=== PATIENT | male | born 1965 | race Caucasian/White ===

== ENCOUNTER 2018-05-06 13:56 | Observation (INO) ==
[2018-05-06 14:31] LABS: Basophils % 0.3 % (0.1-2.0); Eosinophils # 0.2 K/mm3 (0.0-0.4); Eosinophils % 4.4 % (0.1-12.0); Hemoglobin 9.9 g/dL (14.1-18.0); Lymphocytes # 1.1 K/mm3 (0.7-4.5); Lymphocytes % 23.6 K/mm3 (10-50); Mean Corpuscular HGB Conc 30.9 g/dL (31.8-35.4); Mean Corpuscular Hemoglobin 23.3 pg (27.0-31.2); Mean Corpuscular Volume 75.5 fl (80-94); Mean Platelet Volume 6.7 fl (7.4-10.4); Monocytes # 0.4 K/mm3 (0.1-1.0); Monocytes % 7.9 % (1.7-9.3); Neutrophils % 63.7 % (37.0-80.0); Platelet Count 384 K/mm3 (142-424); Red Blood Count 4.24 M/mm3 (4.60-6.20); Red Cell Distribution Width 17.1 % (11.5-17.5); White Blood Count 4.7 K/mm3 (4.8-10.8)
[2018-05-06 14:40] LABS: Anion Gap 9.9 mEq/L (5-15); Blood Urea Nitrogen 10 mg/dL (7-18); Calcium 8.5 mg/dL (8.5-10.1); Carbon Dioxide 27 mmol/L (21.0-32.0); Chloride 103 mmol/L (98-107); Glucose 76 mg/dL (74-106); Potassium 3.9 mmoL/L (3.5-5.1); Sodium 136 mmol/L (136-145)
--- NOTE | 2018-05-06 15:05 | Emergency Department Note ---
ED Disposition Clinical Impression: Chest pain, CAD (coronary artery disease), Microcytic anemia Disposition: Still a Patient Condition on Discharge: Fair Referrals: Provider,Referral, [Primary Care Provider] - - Critical Care Critical Care Time: No Attestation: On 05/06/18, the high probability of a clinically significant, sudden or life threatening deterioration of the following system(s) required my full and direct attention, intervention and personal management. The time I documented below is in addition to time spent performing reported procedures but includes the following listed in this critical care notation. Medical Decision Making - [place] Inquiry Pt receiving controlled substance: No [place] was queried for this patient: No Vital Signs: 05/06/18 13:59 05/06/18 14:29 05/06/18 14:30 Temperature 98.6 F Temperature Source Oral Pulse Rate [Right Brachial] 78 87 72 Respiratory Rate 20 Blood Pressure [Right Arm] 112/77 112/62 104/69 L Blood Pressure Mean [Right Arm] 88 78 80 Blood Pressure Source [Right Arm] Automatic Cuff Automatic Cuff Automatic Cuff Blood Pressure Position [Right Arm] Sitting Sitting Sitting 02 Sat by Pulse Oximetry 98 98 99 Oxygen Delivery Method Room Air - Lab Data Lab Results 05/06/18 14:15: WBC 4.7 L, RBC 4.24 L, Hgb 9.9 L, Hct 32.0 L, MCV 75.5 L, MCH 23.3 L, MCHC 30.9 L, RDW 17.1, Plt Count 384, MPV 6.7 L, Neut % (Auto) 63.7, Lymph % (Auto) 23.6, [place] % (Auto) 7.9, Eos % (Auto) 4.4, Baso % (Auto) 0.3, Neut # (Auto) 3.0, Lymph # (Auto) 1.1, [place] # (Auto) 0.4, Eos # (Auto) 0.2, Baso # (Auto) 0.0 05/06/18 14:15: Sodium 136, Potassium 3.9, Chloride 103, Carbon Dioxide 27, Anion Gap 9.9, BUN 10, Creatinine 0.85, Estimated Creat Clear 87, Estimated GFR 95, Est GFR ( Amer) 115, Glucose 76, Calcium 8.5, Troponin I < 0.02 Result diagrams: 05/06/18 14:15 05/06/18 14:15 Orders (Tests/Meds): ED MEDICATIONS Generic Name Dose Route Start Last Admin Trade Name Freq PRN Reason Stop Dose Admin Nitroglycerin 0.4 mg 05/06/18 14:28 05/06/18 14:29 Nitrostat 0.4mg Sl Tablet SL 06/05/18 14:27 1 tab [id number] PRN Administration Chest Pain Discontinued Medications Generic Name Dose Route Start Last Admin Trade Name Freq PRN Reason Stop Dose Admin Aspirin 324 mg 05/06/18 14:06 05/06/18 14:08 Aspirin 81mg Chewable Tablet PO 05/06/18 14:07 324 mg ONCE ONE Administration ORDERS Category Date Time Status Chest XR 2 view (NOT portable) [XR chest 2V] Stat Exams 05/06/18 14:06 Taken BNP [B-Type Natriuretic Peptide] Stat Lab 05/06/18 14:58 Ordered D-Dimer Stat Lab 05/06/18 14:58 Ordered 12-lead EKG Request [ECG Request by /Nse] Stat Y 05/06/18 14:05 Ordered - Radiology Data #1 Image(s): Chest Image Reviewed: Yes I discussed the image results w/the radiologist Preliminary Findings: Normal/NAD - ECG Data Tracing #1 Normal sinus rhythm 91/min no acute finding. ECG initial impression date: 05/06/18 ECG initial impression time: 14:00 Medical Decision Narrative: I discussed with Dr. Reddy who agreed to see the patient on inpatient consultation. Called Dr. Jaramillo who was education nurse for unassigned to admit the patient. Chest Pain HPI - General Chief Complaint: Chest Pain Stated Complaint: CHEST PAIN Time Seen by Provider: 05/06/18 14:00 Mode of Arrival: Family Vehicle Limitations: No Limitations Description of Symptoms (Recalled from ER Triage Doc. 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 PS 7/10. HX CARDIAC STENTS X 2. - History of Present Illness HPI narrative: 52 years old white male with a history of coronary artery disease status post stent 2 years ago currently on no aspirin and Plavix. Today at 12 while resting he developed retrosternal chest pain 8/10 associated with shortness of breath and palpitations. Presented to the ED he was given nitroglycerin with decrease of the chest pain 2/10. He was taken to the x-ray department when he felt dizzy and passed out was brought back to the ED he was given IV fluids with normotensive blood pressure. Patient's initial EKG was normal sinus with no acute findings his first set of troponin is negative. MD complaint: chest pain indicative of cardiac Onset (ago): hour(s) (3 hours ago.) Duration: constant Activity at onset: during rest Pain location: substernal Severity: moderate Severity scale (1-10): 4 Pain radiation: none Relieving factors: nitroglycerin Exacerbating factors: nothing Associated symptoms: syncope Risk Factors for CAD: Smoking Treatments prior to or on arrival for Cardiac Chest Pain: none - Related Data Home Medications Medication Instructions Recorded Confirmed isosorbide mononitrate ER 30 mg 30 mg PO QAM 08/01/17 tablet,extended release 24 hr Previous Rx's Medication Instructions Recorded Omeprazole [Omeprazole 20mg 20 mg PO DAILY #30 cap 05/05/18 Capsule] Allergies Allergy/AdvReac Type Severity Reaction Status Date / Time Penicillins Allergy Unknown Verified 02/24/18 12:53 [facility] History I have reviewed the patient's past medical history: Yes Medical History: Reports:: Chronic Obstructive Pulmonary Disease (COPD), Coronary Artery Disease, Hyperlipidemia, Hypertension Denies:: Cancer, Diabetes Mellitus Type 1, Diabetes Mellitus Type 2, Gastroesophageal Reflux Disease(GERD), Gastrointestinal Bleed, MRSA, Renal Disease, Ulcer Other Surgeries: Yes: Coronary Stent, Other (cardiac cathx2) Amputation: No - Social History Smoking Status: Current every day smoker Tobacco Type: cigarettes Alcohol Intake: never - Psychiatric History Expresses thoughts of harming self/others: None Suicide Plan Description: No Plan ROS Obtained: Yes All systems reviewed & no additional complaints Physical Exam - General General appearance: alert, in no apparent distress - Head Head exam: atraumatic, normocephalic, normal inspection - Eye Eye exam: Present: normal appearance, PERRL, EOMI - ENT ENT exam: Present: normal exam, normal oropharynx, mucous membranes moist, TM's normal bilaterally, normal external ear exam - Neck Neck exam: Present: normal inspection, full ROM, trachea midline. Absent: meningismus, lymphadenopathy - Chest Chest inspection: Present: normal inspection, symmetric chest wall rise. Absent: tenderness - Respiratory Respiratory exam: Present: normal lung sounds bilaterally. Absent: respiratory distress - Cardiovascular Cardiovascular exam: Present: regular rate, normal rhythm. Absent: JVD - Abdominal Exam Abdominal exam: Present: soft, normal bowel sounds. Absent: distention, t enderness, guarding, rebound, rigidity - Extremities Exam Extremities exam: Present: normal inspection, full ROM, normal capillary refill. Absent: calf tenderness - Back Exam Back exam: Present: normal inspection. Absent: tenderness, CVA tenderness (R), CVA tenderness (L), vertebral tenderness - Neurological Exam Neurological exam: Present: alert, oriented X3, CN II-XII intact, motor sensory deficit, reflexes normal - Psychiatric Psychiatric exam: Present: normal affect, normal mood - Skin Skin exam: Present: warm, dry, intact, normal color - Lymphatic Lymphatic Findings: no adenopathy
[2018-05-07 06:25] LABS: Basophils % 0.5 % (0.1-2.0); Eosinophils # 0.2 K/mm3 (0.0-0.4); Eosinophils % 4.1 % (0.1-12.0); Hematocrit 28.2 % (42.0-52.0); Lymphocytes % 27.6 K/mm3 (10-50); Mean Corpuscular HGB Conc 30.8 g/dL (31.8-35.4); Mean Corpuscular Hemoglobin 23.5 pg (27.0-31.2); Mean Corpuscular Volume 76.4 fl (80-94); Mean Platelet Volume 6.9 fl (7.4-10.4); Monocytes # 0.3 K/mm3 (0.1-1.0); Monocytes % 8.3 % (1.7-9.3); Neutrophils # 2.2 K/mm3 (1.8-7.8); Neutrophils % 59.5 % (37.0-80.0); Platelet Count 304 K/mm3 (142-424); Red Blood Count 3.69 M/mm3 (4.60-6.20); Red Cell Distribution Width 17.2 % (11.5-17.5); White Blood Count 3.7 K/mm3 (4.8-10.8)
[2018-05-07 06:30] LABS: Anion Gap 7.8 mEq/L (5-15); Calcium 8.1 mg/dL (8.5-10.1); Chol/HDL Ratio 3.1 (1-3.5); Potassium 3.8 mmoL/L (3.5-5.1)
[2018-05-07 06:45] LABS: Hemoglobin 8.7 g/dL (14.1-18.0)
--- NOTE | 2018-05-07 06:56 | History & Physical Report ---
*Admission Date: 05/06/18 *Chief complaint: Chest pain *History of present illness: 52-year-old male presented to the emergency department yesterday with retrosternal chest pain that was nonradiating and described as sharp and stabbing. This pain was reminiscent to him of the previous chest pain he had where he was discovered to have coronary artery disease and had [address] Reddy. This was in 2014. Patient had associated diaphoresis. He denies shortness of breath. During his workup in the emergency department when he was taken for chest x-ray he had a syncopal event. ER physician spoke with Dr. Reddy who agreed to see the patient in consultation. Patient was admitted for rule out of [place]. He has continued to have mild episodes of chest pain overnight Patient tells me during interview today that he has been off all of his medications for several months as he has been noncompliant with follow-up with Dr. Reddy. He was admitted to this hospital in June 2017 with an episode of chest pain and repeat catheterization at that time showed [id number] disease. Patient was also found to be anemic in the emergency department [place] History I have reviewed the patient's past medical history: Yes Medical History: Reports:: Chronic Obstructive Pulmonary Disease (COPD), Coronary Artery Disease, Hyperlipidemia, Hypertension Denies:: Cancer, Diabetes Mellitus Type 1, Diabetes Mellitus Type 2, Gastroe sophageal Reflux Disease(GERD), Gastrointestinal Bleed, MRSA, Renal Disease, Ulcer Other Medical History: Reports: Anemia Other Surgeries: Yes: Coronary Stent, Other (cardiac cathx2) Amputation: No - *Social History Educational Level: Attended High School Smoking Status: Current every day smoker Tobacco Type: cigarettes # Packs/Day (cigarettes): 1 #Yrs smoked (if former smoker): 34 Alcohol Intake: former Alcohol Intake Frequency:: other Occupational Status: employed Housing: apartment - Psychiatric History Expresses thoughts of harming self/others: None Suicide Plan Description: No Plan Review of Systems - Review of Systems Review of systems:: pertinent systems reviewed and negative unless documented below - Constitutional Denies anorexia, Denies body ache(s), Denies chills - *Cardiovascular Reports chest pain, Reports chest pain at rest, Reports excessive sweating, Denies chest pain with activity, Denies irregular heart rhythm Meds Home Medications Medication Instructions Recorded Confirmed Type isosorbide mononitrate ER 30 mg 30 mg PO QAM 08/01/17 History tablet,extended release 24 hr Allergies Allergy/AdvReac Type Severity Reaction Status Date / Time Penicillins Allergy Unknown Verified 02/24/18 12:53 Exam Vital signs and Labs for Last 24 Hours: Temp Pulse Resp BP Pulse Ox 98.4 F 65 14 102/61 L 97 05/07/18 04:00 05/07/18 04:00 05/07/18 04:00 05/07/18 04:00 05/07/18 04:00 Laboratory Results - last 24 hr 05/06/18 14:15: WBC 4.7 L, RBC 4.24 L, Hgb 9.9 L, Hct 32.0 L, MCV 75.5 L, MCH 23.3 L, MCHC 30.9 L, RDW 17.1, Plt Count 384, MPV 6.7 L, Neut % (Auto) 63.7, Lymph % (Auto) 23.6, [place] % (Auto) 7.9, Eos % (Auto) 4.4, Baso % (Auto) 0.3, Neut # (Auto) 3.0, Lymph # (Auto) 1.1, [place] # (Auto) 0.4, Eos # (Auto) 0.2, Baso # (Auto) 0.0 05/06/18 14:15: Sodium 136, Potassium 3.9, Chloride 103, Carbon Dioxide 27, Anion Gap 9.9, BUN 10, Creatinine 0.85, Estimated Creat Clear 87, Estimated GFR 95, Est GFR ( Amer) 115, Glucose 76, Calcium 8.5, Troponin I < 0.02 05/06/18 14:15: D-Dimer < 100 05/06/18 14:15: B-Natriuretic Peptide 23 05/06/18 14:15: Retic Count (auto) 1.1 05/06/18 18:12: Troponin I < 0.02 05/07/18 00:20: Troponin I < 0.02 05/07/18 05:55: WBC 3.7 L, RBC 3.69 L, Hgb 8.7 L D, Hct 28.2 L, MCV 76.4 L, MCH 23.5 L, MCHC 30.8 L, RDW 17.2, Plt Count 304, MPV 6.9 L, Neut % (Auto) 59.5, Lymph % (Auto) 27.6, [place] % (Auto) 8.3, Eos % (Auto) 4.1, Baso % (Auto) 0.5, Neut # (Auto) 2.2, Lymph # (Auto) 1.0, [place] # (Auto) 0.3, Eos # (Auto) 0.2, Baso # (Auto) 0.0 05/07/18 05:55: Sodium 139, Potassium 3.8, Chloride 108 H, Carbon Dioxide 27, Anion Gap 7.8, BUN 7 D, Creatinine 0.85, Estimated Creat Clear 87, Estimated GFR 95, Est GFR ( Amer) 115, Glucose 89, Calcium 8.1 L, Magnesium 1.9, Triglycerides 51, Cholesterol 89 L, LDL Cholesterol 50, VLDL Cholesterol 10, HDL Cholesterol 29, Cholesterol/HDL Ratio 3.1 I & O for Last 24 hours: Intake & Output 05/04/18 05/05/18 05/06/18 05/07/18 11:59 11:59 11:59 11:59 Intake Total 810 / 810 Balance 810 / 810 Weight 130 lb 8 oz Narrative: Patient is sitting comfortably in bed in no distress. He is a thin, white male. ENT exam is grossly normal. Neck is without carotid bruits or thyromegaly. Lungs are clear to auscultation. Heart has a regular rate and rhythm. Abdomen is soft nontender nondistended. Extremities have full range of motion and are without edema. Assessment and Plan (1) Cigarette smoker Current visit: Yes Status: Acute Category: Medical Code(s): F17.210 - Nicotine dependence, cigarettes, uncomplicated (2) CAD (coronary artery disease) Current visit: Yes Status: Acute Category: Medical Code(s): I25.10 - Atherosclerotic heart disease of [place] coronary artery without angina pectoris (3) Chest pain Current visit: Yes Status: Acute Category: Medical Code(s): R07.9 - Chest pain, unspecified (4) Microcytic anemia Current visit: Yes Status: Acute Category: Medical Code(s): D50.9 - Iron deficiency anemia, unspecified (5) Severe chronic obstructive pulmonary disease Current visit: No Status: Acute Category: Medical Code(s): J44.9 - Chronic obstructive pulmonary disease, unspecified (6) Stented coronary artery Current visit: No Status: Acute Category: Surgical Code(s): Z95.5 - Presence of coronary angioplasty implant and graft - Assessment and plan all Dx Assessment and Plan for all problems:: 1. Cardiology consultation today. I did discuss with the patient the need to take the medications that he is prescribed. 2. We discussed his microcytic anemia and his need for a primary care provider so that he can get a referral for colonoscopy. His current insurance, at the [facility], as accepted by only one primary care physician locally and he is aware of that
--- NOTE | 2018-05-07 08:03 | Consult Report ---
History of Present Illness Consult date: 05/07/18 Requesting physician: Rubens Jaramillo Consult reason: chest pain Chief complaint: chest pain Additional Medical History:: 1. CAD A. ANISH to RCA and left anterior descending, 01/2015. B. Cardiac cath, 06/2017, ANGIOGRAPHIC RESULTS: 1. The left main artery long and normal 2. The left anterior descending artery is proximally normal with mild luminal irregularities in the mid LAD and very large bifurcating first diagonal artery which is equal in size to the LAD itself 3. The circumflex artery is nondominant and normal 4. The right coronary artery is a dominant vessel and has mild mid vessel luminal irregularities. Distally in the large posterior descending artery there are stents in the mid segment which are widely patent. One area has a 50-60% concentric in-stent restenotic area at a 2 mm area 5. The GUNN ventriculogram reveals 65% 6. The left ventricular end-diastolic pressure 15 mmHg IMPRESSION: 1. Mild nonflow limiting coronary disease in the LAD and very large first diagonal artery 2. Patent stents with a focal moderate in-stent restenotic lesion within the posterior descending artery which is nonflow limiting 3. Normal ejection fraction 4. Normal to mildly elevated LVEDP PLAN: 1. Medical management 2. Risk factor modification 3. Avoidance of tobacco products 4. LDL less than 55 5. Maximize antianginal's 2. COPD A. Tobacco use, continued 3. HTN 4. Hyperlipidemia 6. Non-compliance 7. GERD, 04/2018 History of present illness: 52-year-old male presented to the emergency department yesterday with re trosternal chest pain that was nonradiating and described as sharp and stabbing. This pain was reminiscent to him of the previous chest pain he had where he was discovered to have coronary artery disease and had [address] Reddy. This was in 2014. Patient had associated diaphoresis. He denies shortness of breath. During his workup in the emergency department when he was taken for chest x-ray he had a syncopal event. ER physician spoke with Dr. Reddy who agreed to see the patient in consultation. Patient was admitted for rule out of [place]. He has continued to have mild episodes of chest pain overnight Patient tells me during interview today that he has been off all of his medications for several months as he has been noncompliant with follow-up with Dr. Reddy. He was admitted to this hospital in June 2017 with an episode of chest pain and repeat catheterization at that time showed [id number] disease. Patient was also found to be anemic in the emergency department The above per Dr. Jaramillo Pt was recently started on omeprazole (first dose yesterday) for reflux with improvement in symptoms of upper abdominal and sternum discomfort. Troponins have returned normal after hours of chest pain. EKG is sinus with no evidence of ST segment elevation or ischemia. Pt has been non-compliant with even ASA on a regular basis. [facility] History Medical History: Reports:: Chronic Obstructive Pulmonary Disease (COPD), Coronary Artery Disease, Hyperlipidemia, Hypertension Denies:: Cancer, Diabetes Mellitus Type 1, Diabetes Mellitus Type 2, Gastroesophageal Reflux Disease(GERD), Gastrointestinal Bleed, MRSA, Renal Disease, Ulcer Other Medical History: Reports: Anemia Other Surgeries: Yes: Coronary Stent, Other (cardiac cathx2) Amputation: No - *Social History Educational Level: Attended High School Smoking Status: Current every day smoker Tobacco Type: cigarettes # Packs/Day (cigarettes): 1 #Yrs smoked (if former smoker): 34 Alcohol Intake: former Alcohol Intake Frequency:: other Occupational Status: employed Housing: apartment - Psychiatric History Expresses thoughts of harming self/others: None Suicide Plan Description: No Plan Meds Home Medications Medication Instructions Recorded Confirmed Type isosorbide mononitrate ER 30 mg 30 mg PO QAM 08/01/17 History tablet,extended release 24 hr Allergies Allergy/AdvReac Type Severity Reaction Status Date / Time Penicillins Allergy Unknown Verified 02/24/18 12:53 Review of Systems - *Cardiovascular Reports chest pain, Denies shortness of breath, Denies shortness of breath with activity - *Respiratory Denies shortness of breath with activity - *Gastrointestinal Reports abdominal pain, Denies incontinent of stools, Denies bright, red blood in stools - *Genitourinary Denies blood in urine - *Musculoskeletal Denies back pain Exam Vital signs and Labs for Last 24 Hours: Temp Pulse Resp BP Pulse Ox 98.7 F 64 18 119/67 98 05/07/18 07:44 05/07/18 07:44 05/07/18 07:44 05/07/18 07:44 05/07/18 07:44 Laboratory Results - last 24 hr 05/06/18 14:15: WBC 4.7 L, RBC 4.24 L, Hgb 9.9 L, Hct 32.0 L, MCV 75.5 L, MCH 23.3 L, MCHC 30.9 L, RDW 17.1, Plt Count 384, MPV 6.7 L, Neut % (Auto) 63.7, Lymph % (Auto) 23.6, [place] % (Auto) 7.9, Eos % (Auto) 4.4, Baso % (Auto) 0.3, Neut # (Auto) 3.0, Lymph # (Auto) 1.1, [place] # (Auto) 0.4, Eos # (Auto) 0.2, Baso # (Auto) 0.0 05/06/18 14:15: Sodium 136, Potassium 3.9, Chloride 103, Carbon Dioxide 27, Ani on Gap 9.9, BUN 10, Creatinine 0.85, Estimated Creat Clear 87, Estimated GFR 95, Est GFR ( Amer) 115, Glucose 76, Calcium 8.5, Troponin I < 0.02 05/06/18 14:15: D-Dimer < 100 05/06/18 14:15: B-Natriuretic Peptide 23 05/06/18 14:15: Retic Count (auto) 1.1 05/06/18 18:12: Troponin I < 0.02 05/07/18 00:20: Troponin I < 0.02 05/07/18 05:55: WBC 3.7 L, RBC 3.69 L, Hgb 8.7 L D, Hct 28.2 L, MCV 76.4 L, MCH 23.5 L, MCHC 30.8 L, RDW 17.2, Plt Count 304, MPV 6.9 L, Neut % (Auto) 59.5, Lymph % (Auto) 27.6, [place] % (Auto) 8.3, Eos % (Auto) 4.1, Baso % (Auto) 0.5, Neut # (Auto) 2.2, Lymph # (Auto) 1.0, [place] # (Auto) 0.3, Eos # (Auto) 0.2, Baso # (Auto) 0.0 05/07/18 05:55: Sodium 139, Potassium 3.8, Chloride 108 H, Carbon Dioxide 27, Anion Gap 7.8, BUN 7 D, Creatinine 0.85, Estimated Creat Clear 87, Estimated GFR 95, Est GFR ( Amer) 115, Glucose 89, Calcium 8.1 L, Magnesium 1.9, Triglycerides 51, Cholesterol 89 L, LDL Cholesterol 50, VLDL Cholesterol 10, HDL Cholesterol 29, Cholesterol/HDL Ratio 3.1 I & O for Last 24 hours: Intake & Output 05/04/18 05/05/18 05/06/18 05/07/18 11:59 11:59 11:59 11:59 Intake Total 810 / 810 Balance 810 / 810 Weight 130 lb 8 oz - *Routine Neck Exam Present: supple. Absent: JVD, carotid bruit - *Routine Respiratory Exam Present: CTA bilaterally, diminished air movement. Absent: accessory muscle use, rales, rhonchi, wheezes - *Routine Cardiovascular Exam Present: RRR. Absent: murmur, gallop, rubs - *Routine Abdominal Exam Present: soft. Absent: tenderness, distended, guarding - *Routine Extremities Exam Absent: edema, calf tenderness - *Routine Neurological Exam Present: alert, oriented X3, moving all extremities Assessment and Plan (1) Cigarette smoker Current visit: Yes Status: Acute Category: Medical Code(s): F17.210 - Nicotine dependence, cigarettes, uncomplicated (2) CAD (coronary artery disease) Current visit: Yes Status: Acute Category: Medical Code(s): I25.10 - Atherosclerotic heart disease of [place] coronary artery without angina pectoris (3) Chest pain Current visit: Yes Status: Acute Category: Medical Code(s): R07.9 - Chest pain, unspecified (4) Microcytic anemia Current visit: Yes Status: Acute Category: Medical Code(s): D50.9 - Iron deficiency anemia, unspecified (5) Severe chronic obstructive pulmonary disease Current visit: No Status: Acute Category: Medical Code(s): J44.9 - Chronic obstructive pulmonary disease, unspecified (6) Stented coronary artery Current visit: No Status: Acute Category: Surgical Code(s): Z95.5 - Presence of coronary angioplasty implant and graft - Assessment and plan all Dx Assessment and Plan for all problems:: 1. Chest pain with normal troponins and normal EKG with medication non- compliance. Cardiac cath in 06/2017 showed non-flow limiting CAD in a small diameter PDA for which medical therapy recommended. Due to patients non- compliance, will recommend restarting ASA 81 mg daily along with statin therapy (atorvastatin 40 mg daily) and imdur 30 mg daily along with PPI therapy (omeprazole as previously started). Due to low BP will hold off on beta bobby or CCB therapy at this time. 2. Follow up in our office in one week. 3. Discussed with Dr. Reddy
--- NOTE | 2018-05-07 10:22 | Discharge Summary ---
General - General Admission date:: 05/06/18 Discharge date: 05/07/18 HPI HPI: 52-year-old male presented to the emergency department yesterday with retrosternal chest pain that was nonradiating and described as sharp and stabbing. This pain was reminiscent to him of the previous chest pain he had where he was discovered to have coronary artery disease and had [address] Reddy. This was in 2014. Patient had associated diaphoresis. He denies shortness of breath. During his workup in the emergency department when he was taken for chest x-ray he had a syncopal event. ER physician spoke with Dr. Reddy who agreed to see the patient in consultation. Patient was admitted for rule out of SC. He has continued to have mild episodes of chest pain overnight Patient tells me during interview today that he has been off all of his medications for several months as he has been noncompliant with follow-up with Dr. Reddy. He was admitted to this hospital in June 2017 with an episode of chest pain and repeat catheterization at that time showed [id number] disease. Patient was also found to be anemic in the emergency department Hospital Course Hospital Course: Patient was admtted and ruled out for SC. Cardiology saw the patient and advised him to take his medication. No interventions were planned. He was discharged with one month prescription for medications. He will need to follow up with Cardiology and establish a relationship with a PCP for his anemia that will require colonoscopy. Objective Vital signs: Temp Pulse Resp BP Pulse Ox 98.7 F 64 18 119/67 98 05/07/18 07:44 05/07/18 07:44 05/07/18 07:44 05/07/18 07:44 05/07/18 07:44 Results Labs on day of discharge: Labs from last 24 hours 05/07/18 05/07/18 05/07/18 05:55 05:55 00:20 WBC 3.7 L RBC 3.69 L Hgb 8.7 L D Hct 28.2 L MCV 76.4 L MCH 23.5 L MCHC 30.8 L RDW 17.2 Plt Count 304 MPV 6.9 L Neut % (Auto) 59.5 Lymph % (Auto) 27.6 [place] % (Auto) 8.3 Eos % (Auto) 4.1 Baso % (Auto) 0.5 Neut # (Auto) 2.2 Lymph # (Auto) 1.0 [place] # (Auto) 0.3 Eos # (Auto) 0.2 Baso # (Auto) 0.0 Retic Count (auto) D-Dimer Sodium 139 Potassium 3.8 Chloride 108 H Carbon Dioxide 27 Anion Gap 7.8 BUN 7 D Creatinine 0.85 Estimated Creat Clear 87 Estimated GFR 95 Est GFR ( Amer) 115 Glucose 89 Calcium 8.1 L Magnesium 1.9 Troponin I < 0.02 B-Natriuretic Peptide Triglycerides 51 Cholesterol 89 L LDL Cholesterol 50 VLDL Cholesterol 10 HDL Cholesterol 29 Cholesterol/HDL Ratio 3.1 05/06/18 05/06/18 05/06/18 18:12 14:15 14:15 WBC RBC Hgb Hct MCV MCH MCHC RDW Plt Count MPV Neut % (Auto) Lymph % (Auto) [place] % (Auto) Eos % (Auto) Baso % (Auto) Neut # (Auto) Lymph # (Auto) [place] # (Auto) Eos # (Auto) Baso # (Auto) Retic Count (auto) 1.1 D-Dimer Sodium Potassium Chloride Carbon Dioxide Anion Gap BUN Creatinine Estimated Creat Clear Estimated GFR Est GFR ( Amer) Glucose Calcium Magnesium Troponin I < 0.02 B-Natriuretic Peptide 23 Triglycerides Cholesterol LDL Cholesterol VLDL Cholesterol HDL Cholesterol Cholesterol/HDL Ratio 05/06/18 05/06/18 05/06/18 14:15 14:15 14:15 WBC 4.7 L RBC 4.24 L Hgb 9.9 L Hct 32.0 L MCV 75.5 L MCH 23.3 L MCHC 30.9 L RDW 17.1 Plt Count 384 MPV 6.7 L Neut % (Auto) 63.7 Lymph % (Auto) 23.6 [place] % (Auto) 7.9 Eos % (Auto) 4.4 Baso % (Auto) 0.3 Neut # (Auto) 3.0 Lymph # (Auto) 1.1 [place] # (Auto) 0.4 Eos # (Auto) 0.2 Baso # (Auto) 0.0 Retic Count (auto) D-Dimer < 100 Sodium 136 Potassium 3.9 Chloride 103 Carbon Dioxide 27 Anion Gap 9.9 BUN 10 Creatinine 0.85 Estimated Creat Clear 87 Estimated GFR 95 Est GFR ( Amer) 115 Glucose 76 Calcium 8.5 Magnesium Troponin I < 0.02 B-Natriuretic Peptide Triglycerides Cholesterol LDL Cholesterol VLDL Cholesterol HDL Cholesterol Cholesterol/HDL Ratio DS: Diagnosis - Discharge Diagnosis (1) Cigarette smoker Status: Acute (2) CAD (coronary artery disease) Status: Acute (3) Chest pain Status: Acute (4) Microcytic anemia Status: Acute (5) Severe chronic obstructive pulmonary disease Status: Acute (6) Stented coronary artery Status: Acute Discharge Plan - Patient Discharge Instructions ACTIVITY: Continue current activity DIET: continue same diet Patient Instructions: DI for Chest Pain Forms: [facility] Work Release - Follow up Plan Follow up with: Jona Reddy MD [Staff Physician] - Disposition: Home, Self-Longterm Medications: Home Medications Medication Instructions Recorded Confirmed Type isosorbide mononitrate ER 30 mg 30 mg PO AMLAB 08/01/17 05/07/18 History tablet,extended release 24 hr Prescriptions/Medication Reconciliation: New RX: Aspirin [Aspirin 81mg chewable tab] 81 mg PO DAILY #30 tab.chew RX: Atorvastatin Calcium [Lipitor 40mg Tablet] 40 mg PO HS #30 tablet Continue isosorbide mononitrate ER 30 mg tablet,extended release 24 hr 30 mg PO AMLAB RX: Omeprazole [Omeprazole 20mg Capsule] 20 mg PO DAILY #30 cap
== END 2018-05-07 10:55 | disposition home or self-care (01) ==
LOC: 2ND 13:56 → ER 13:56 → 2ND 16:35
PROVIDERS: ADMIT Family Medicine; ATTEND Family Medicine

== ENCOUNTER → 2018-05-26 07:11 | Outpatient (CLI) | payer OTHER, SELFPAY ==
--- NOTE | 2018-05-26 07:13 | CA_ITS ---
PROCEDURE: 2-D M-mode and color Doppler study INDICATIONS FOR THE TEST: Chest pain + COPD+ Heart Murmur Tobacco Smoking+ Palpitations Fatigue Syncope Edema Hypertension+Diabetes Mellitus Rheumatic Fever SOB LALA Obesity Hyperlipidemia+ Family History HD Additional History CAD, OLD PA, STENTS PATIENT INFORMATION HEIGHT:68 WEIGHT:130 GENDER: Male B/P:143/91 2-D/M-MODE INTERPRETATION: 2-D MEASUREMENTS OBSERVED VALUES IN CMS Right Ventricular Dimension (RVDd) 1.9 Interventricular Septum (Thickness)(IVsd) 1.1 Left Ventricular Internal Dimensions(LVIDd) 4.6 Left Ventricular Posterior Wall (Thickness)(LVPWd) 0.9 Aortic Root 3.0 Aortic Cusp Separation 1.9 Left Atrial Dimensions (LAD) 2.3 2D 1. Left atrium is mildly enlarged, left ventricle is normal size, there is no concentric left ventricular hypertrophy, visually estimated ejection fraction approximately 40%, there is moderate hypokinesis involving the apex. 2. The right atrium and right ventricle are normal size and contractility. 3. The aortic valve is minimally thickened and fibrosed. 4. The mitral and tricuspid valvular grossly normal. 5. The pulmonic valve is poorly visualized. 6. No significant pericardial effusion noted. DOPPLER INTERROGATION: Doppler interrogation of the aortic, mitral and tricuspid valvular presence of mild mitral and tricuspid regurgitation, tricuspid regurgitation jet velocity is inadequate for calculation of the right ventricular systolic pressure, diastolic parameters are inconclusive. CONCLUSION: 1. Mildly enlarged left atrium, normal left ventricular size, visually estimated ejection fraction approximately 40%, segmental wall motion abnormality described above, diastolic parameters are inconclusive. 2. Mild mitral and tricuspid regurgitation 3. No significant pericardial effusion noted.
--- NOTE | 2018-05-26 07:13 | CI_ITS ---
Cerebrovascular Exam Indications: 780.2 Syncope and collapse. IMPRESSIONS 1. The bilateral vertebral arteries are patent with normal antegrade flow. 2. Study suggests 20-49% stenosis involving the right internal carotid artery and the left internal carotid artery, lower end of scale. Carotid duplex study. Complete study and Doppler flow study including spectral analysis, color and solorzano scale imaging. Height: Height: 172.7cm. Height: 68in. Weight: Weight: 59kg. Weight: 129.7lb. Body mass index: BMI: 19.8kg/m^2. Body surface area: BSA: 1.68m^2. Location: Vascular laboratory. Patient status: Outpatient. Tables: Arterial flow: + +--------+--------+ Location V sys V ed + +--------+--------+ Right CCA - proximal 109cm/s 36.1cm/s + +--------+--------+ Right CCA - distal 93.5cm/s 40.9cm/s + +--------+--------+ Right ECA 80cm/s -------- + +--------+--------+ Right ICA - proximal 77.1cm/s 37.8cm/s + +--------+--------+ Right ICA - mid 74.6cm/s 38.3cm/s + +--------+--------+ Right ICA - distal 81.5cm/s 38.8cm/s + +--------+--------+ Right vertebral 52.6cm/s -------- + +--------+--------+ Left CCA - proximal 103cm/s 35.8cm/s + +--------+--------+ Left CCA - distal 93.3cm/s 35.4cm/s + +--------+--------+ Left ECA 62.9cm/s -------- + +--------+--------+ Left ICA - proximal 69.9cm/s 29.9cm/s + +--------+--------+ Left ICA - mid 86.9cm/s 40.8cm/s + +--------+--------+ Left ICA - distal 80cm/s 36.8cm/s + +--------+--------+ Left vertebral 59.9cm/s -------- + +--------+--------+ Velocity ratios: + + + + + + Right, V sys Right, V ed Left, V sys Left, V ed + + + + + + Max ICA/dist CCA 0.87 0.95 0.93 1.15 + + + + + + (Report amended ) Electronically signed by: Efren Bazan [id number]
--- NOTE | 2018-05-26 07:13 | NM_ITS ---
History and Indications: Coronary artery disease, hypertension, tobacco use, chest, shortness of breath and abnormal EKG. Procedure: Patient received a 0.4 mg of intravenous Lexiscan, resting heart rate was 71 bpm resting blood pressure 123/74, with Lexiscan maximum heart rate achieved was 106 bpm which is less than 85% of the maximum predicted heart rate and a blood pressure was 109/60. With Lexiscan patient complained of shortness of breath and stomach discomfort. Electrocardiogram: Resting electrocardiogram showed sinus rhythm, with Lexiscan there is less than 1.[address] segment depression noted from the baseline EKG. The EKG portion of the Lexiscan Myoview is nondiagnostic. Cardiac stress and resting SPECT images: Cardiac stress and rest SPECT images were obtained using technetium 99 Myoview 32.6 mCi at stress and 10.6 at rest, and further analysis of segmental wall motion and calculation of the ejection fraction also done. Cardiac stress and rest SPECT images show uniform myocardial activity without segmental perfusion abnormality, computer derived ejection fraction is 37% with no regional wall motion abnormality, right ventricle is normal size and contractility. Conclusion: 1. The EKG portion of the Lexiscan Myoview is nondiagnostic. 2. No scintigraphic evidence of reversible ischemia seen, computer derived ejection fraction is 37% with no regional wall motion abnormality, right ventricle is normal size and contractility. 3. Abnormal Lexiscan Myoview study.
--- NOTE | 2018-05-26 07:31 | HMH.ITSHM ---
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 []BISOPROLOL ASA OMEPRAZOLE ATORVASTATIN
== END ==
PROVIDERS: Visit Provider Internal Medicine Cardiovascular Disease
DX: I25.10 Atherosclerotic heart disease of native coronary artery without angina pectoris (principal); I11.9 Hypertensive heart disease without heart failure; D50.9 Iron deficiency anemia, unspecified; E78.49 Other hyperlipidemia; F17.200 Nicotine dependence, unspecified, uncomplicated; J44.9 Chronic obstructive pulmonary disease, unspecified; I20.9 Angina pectoris, unspecified; R42 Dizziness and giddiness; R55 Syncope and collapse
CPT/HCPCS: 78452; 93017; 93306; 93880; A9502; J2785

== ENCOUNTER 2018-06-24 14:20 | Outpatient (RCR) | payer OTHER, SELFPAY | END 2018-08-06 16:39 | disposition home or self-care (01) | LOC: PT 14:20 | PROVIDERS: Visit Provider Internal Medicine | DX: Z95.5 Presence of coronary angioplasty implant and graft (principal) | CPT/HCPCS: 93798 ==

== ENCOUNTER 2019-11-08 09:40 | Emergency (ER) | payer OTHER, SELFPAY ==
[2019-11-08 09:49] VITALS: BP 109/79; PULSE 121; RESP 17; TEMP 36.9; O2SAT 98
--- NOTE | 2019-11-08 09:53 | CT_ITS ---
PROCEDURE: CT ABDOMEN PELVIS W CON CLINICAL INDICATION: abd pain Abdominal pain with vomiting COMPARISON: CXR CHEST(2 VIEWS-NOT PORTABLE) from 12/20/2015 ABDPELW/O CT ABD PELVIS W/O CONTRAST from 02/19/2017 XR CHEST 2V from 11/08/2019 TECHNIQUE: IV Contrast: 75ML OPTIRAY 350 Oral Contrast none Axial images obtained with sagittal and coronal reformats. All CT scans at the facility use one or more dose reduction, viz: automated exposure control, ma/kV adjustment per patient size (including targeted exams where dose is matched to indication, i.e. head), or iterative reconstruction technique. FINDINGS: There is a hyperdensity within the posterior aspect of the interventricular septum inferiorly and could be due to an area calcification or implantable device. Please correlate with clinical findings. There is mild thickening of the distal esophagus which is nonspecific. The adrenal glands, pancreas, and kidneys have an unremarkable appearance. There is a small hypodensity in the right kidney anteriorly at 3 mm and may be due to small cyst. No intestinal obstruction or free air. No evidence of appendicitis or diverticulitis. There is a mild amount of retained colonic feces in the rectosigmoid region. No acute bony findings. IMPRESSION: No acute findings. Please see above for detail Dictated by: Efren Bazan MD 11/08/2019 11:53 Electronically signed by Efren Bazan MD in [place] 11/08/2019 11:53
--- NOTE | 2019-11-08 09:57 | HMH.EDGENADL ---
ED Disposition Clinical Impression: Esophagitis, Tobacco abuse Abdominal pain Qualifiers: Abdominal location: epigastric Qualified Code(s): R10.13 - Epigastric pain Disposition: Home, Self-Care Condition on Discharge: Fair Instructions: DI for Gastroesophageal Reflux Disease (GERD), DI for Acute Abdomen Additional Instructions: You have been evaluated for abdominal pain, likely due to reflux or peptic ulcer disease. Please take proton pump inhibitor as prescribed. You may use Maalox for symptoms. Follow-up with your primary care doctor, you likely need an endoscopy. Avoid tobacco and alcohol. Return to the emergency department if you have new or worsening symptoms, chest pain, dark stools, vomiting, other concerns. Prescriptions: Omeprazole 20 mg PO DAILY 30 Days #30 tab.suraj. Transmission Status: Pending to [id number] Referrals: Kolby Geiger APRN [Primary Care Provider] - Time of Disposition: 12:40 - Critical Care Critical Care Time: No Attestation: On 11/08/19, the high probability of a clinically significant, sudden or life threatening deterioration of the following system(s) required my full and direct attention, intervention and personal management. The time I documented below is in addition to time spent performing reported procedures but includes the following listed in this critical care notation. Medical Decision Making - Maynor Inquiry Pt receiving controlled substance: No Vital Signs: 11/08/19 09:49 Temperature 98.5 F Temperature Source Oral Pulse Rate [Right Radial] 121 H Respiratory Rate 17 Blood Pressure [Right Arm] 109/79 L Blood Pressure Mean [Right Arm] 89 02 Sat by Pulse Oximetry 98 Oxygen Delivery Method Room Air - Lab Data Lab Results 11/08/19 09:45: Urine Color Yellow, Urine Appearance Sl cloudy, Urine pH 6.0, Ur Specific [place] >= 1.030, Urine Protein 1+, Urine Glucose (UA) Negative, Urine Ketones Trace, Urine Blood 2+, Urine Nitrate Negative, Urine Bilirubin Negative, Urine Urobilinogen 1.0, Ur Leukocyte Esterase Trace, Urine RBC 5-10, Urine WBC 5-10, Ur Squamous Epith Cells Occasional, Urine Bacteria 1+ 11/08/19 10:00: WBC 12.6 H, RBC 5.30, Hgb 16.1, Hct 50.0, MCV 94.3 H, MCH 30.4, MCHC 32.3, RDW 12.7, Plt Count 372, MPV 6.9 L, Neut % (Auto) 81.2 H, Lymph % (Auto) 13.7, [place] % (Auto) 4.4, Eos % (Auto) 0.5, Baso % (Auto) 0.2, Neut # (Auto) 10.3 H, Lymph # (Auto) 1.7, [place] # (Auto) 0.6, Eos # (Auto) 0.1, Baso # (Auto) 0.0 11/08/19 10:00: Sodium 138, Potassium 3.8, Chloride 90 L, Carbon Dioxide 31 H, Anion Gap 20.8 H, BUN 23 H, Creatinine 1.20, Estimated Creat Clear 65, Estimated GFR 64, Est GFR ( Amer) 77, Glucose 201 H, Calcium 10.0, Total Bilirubin 0.9, AST 31, ALT 30, Alkaline Phosphatase 106, Troponin I < 0.01, Total Protein 9.2 H, Albumin 5.1 H, Globulin 4.1 H, Albumin/Globulin Ratio 1.2, Amylase 137 H, Lipase 187 Result diagrams: 11/08/19 10:00 11/08/19 10:00 Orders (Tests/Meds): ED MEDICATIONS Generic Name Dose Route Start Last Admin Trade Name Freq PRN Reason Stop Dose Admin Sodium Chloride 10 ml 11/08/19 11:29 11/08/19 11:29 Rad-Saline Flush 10ml Syringe IV 12/08/19 11:28 10 ml NEEDED PRN Administration Maintain IV Site Discontinued Medications Generic Name Dose Route Start Last Admin Trade Name Freq PRN Reason Stop Dose Admin Belladonna Alkaloids 60 ml 11/08/19 11:56 11/08/19 12:14 Gi Cocktail 60ml Udc PO 11/08/19 11:57 60 ml ONCE ONE Administration Sodium Chloride 1,000 mls @ 999 mls/hr 11/08/19 10:00 11/08/19 10:03 Sod Chlor 0.9% 1000ml Bag IV 11/08/19 11:00 999 mls/hr .Q1H1M VERO Administration Ioversol 75 ml 11/08/19 11:28 11/08/19 11:30 Rad-Optiray 350 100ml Vial IV 11/08/19 11:29 75 ml ONCE ONE Administration Protocol ORDERS Category Date Time Status Troponin I Q3H Lab 11/08/19 13:15 Ordered Troponin I Q3H Lab 11/08/19 16:15 Ordered EKG Request [ECG Reque
[2019-11-08 09:59] LABS: Microscopic, Urine URINE MICROSCOPIC (MICROSCOPIC)
[2019-11-08 10:00] LABS: Appearance,Urine SL CLOUDY (Clear); Blood, Urine 2+ (Negative); Color,Urine YELLOW (Yellow); Glucose,Urine (UA) Negative (Negative); Ketones,Urine TRACE (Negative); Leukocyte Esterase,Urine TRACE (Negative); Nitrate,Urine Negative (Negative); Protein,Urine 1+ (Negative); Specific Gravity, Urine >= 1.030 (1.005-1.030)
--- NOTE | 2019-11-08 10:06 | ECG_ITS ---
APPROVED REPORT Exam: Resting ECG HR:78 bpm ECG Measurements Heart Rate 78 AXES DC 140 P 74 QRSd 86 QRS 35 QT 402 T -35 QTc 458 <Conclusion> Normal sinus rhythm Nonspecific ST and T wave abnormality Abnormal ECG Electronically signed by : Jaime Fierro, 11/08/2019 16:11:33
--- NOTE | 2019-11-08 10:06 | XR_ITS ---
PROCEDURE: XR CHEST 2V CLINICAL HISTORY: midepigastric pain Chest pain COMPARISON: [facility] CT CHEST W/O CONTRAST from 08/25/2015 CXR2V XR chest 2V from 05/06/2018 CXR2V XR chest 2V from 06/24/2018 CXR2V XR chest 2V from 09/16/2018 CT ABDOMEN PELVIS W CON from 11/08/2019 FINDINGS: The cardiomediastinal silhouette and pulmonary vascularity are within normal limits. There is a coronary artery stent in place The lungs are clear without infiltrates, suspicious nodules, or pleural effusions. No acute bony abnormalities. IMPRESSION: No acute findings. Dictated by: Efren Bazna MD 11/08/2019 12:18 Electronically signed by Efren Bazan MD in [place] 11/08/2019 12:18
[2019-11-08 10:18] LABS: Basophils % 0.2 % (0.1-2.0); Eosinophils # 0.1 K/mm3 (0.0-0.4); Eosinophils % 0.5 % (0.1-12.0); Hemoglobin 16.1 g/dL (14.1-18.0); Lymphocytes # 1.7 K/mm3 (0.7-4.5); Lymphocytes % 13.7 % (10-50); Mean Corpuscular HGB Conc 32.3 g/dL (31.8-35.4); Mean Corpuscular Hemoglobin 30.4 pg (27.0-31.2); Mean Corpuscular Volume 94.3 fl (80-94); Mean Platelet Volume 6.9 fl (7.4-10.4); Monocytes # 0.6 K/mm3 (0.1-1.0); Monocytes % 4.4 % (1.7-9.3); Neutrophils # 10.3 K/mm3 (1.8-7.8); Neutrophils % 81.2 % (37.0-80.0); Platelet Count 372 K/mm3 (142-424); Red Cell Distribution Width 12.7 % (11.5-17.5); White Blood Count 12.6 K/mm3 (4.8-10.8)
[2019-11-08 10:20] LABS: Chloride 90 mmol/L (98-107); Potassium 3.8 mmoL/L (3.5-5.1); Sodium 138 mmol/L (136-145)
[2019-11-08 10:20] LABS: Bilirubin,Urine Negative (Negative)
[2019-11-08 10:23] LABS: Alanine Aminotransferase 30 U/L (12-78); Albumin Level 5.1 g/dl (3.5-5.0); Albumin/Globulin Ratio 1.2 (1.1-1.8); Alkaline Phosphatase 106 U/L (38-126); Amylase 137 U/L (30-110); Anion Gap 20.8 mEq/L (5-15); Aspartate Amino Transferase 31 U/L (17-59); Bilirubin,Total 0.9 mg/dl (0.2-1.3); Blood Urea Nitrogen 23 mg/dl (9-20); Carbon Dioxide 31 mmol/L (22.0-30.0); Creatinine Clearance Estimated 65 mL/min (50-200); Estimated Glomerular Filt Rate 64 ml/min (>60); GFR (African American) 77 ML/MIN (>60); Globulin 4.1 g/dL (1.3-3.2); Glucose 201 mg/dl (74-100); Lipase 187 U/L (23-300); Total Protein,Serum 9.2 g/dl (6.3-8.2)
[2019-11-08 10:40] LABS: Troponin I < 0.01 ng/ml (0.00-0.034)
[2019-11-08 10:51] LABS: Bacteria,Urine 1+ /lpf; Squamous Epithelial Cell,Urine Occasional #/hpf (0-5)
[2019-11-08 12:59] VITALS: BP 123/79; PULSE 89; RESP 17; TEMP 36.8; O2SAT 98
== END 2019-11-08 12:59 | disposition home or self-care (01) ==
PROVIDERS: Emergency Provider Emergency Medicine; PCP Nurse Practitioner Family
DX: K20.9 Esophagitis, unspecified (principal); I10 Essential (primary) hypertension; J44.9 Chronic obstructive pulmonary disease, unspecified; E78.5 Hyperlipidemia, unspecified; Z79.899 Other long term (current) drug therapy
CPT/HCPCS: 71046; 74177; 80053; 81001; 82150; 83690; 84484; 85025; 93005; 96365; 99283; Q9967

== ENCOUNTER → 2019-11-12 09:37 | Outpatient (CLI) | payer OTHER, SELFPAY ==
[2019-11-12 10:37] LABS: Basophils % 0.9 % (0.1-2.0); Eosinophils # 0.1 K/mm3 (0.0-0.4); Eosinophils % 2.4 % (0.1-12.0); Hemoglobin 13.4 g/dL (14.1-18.0); Lymphocytes # 1.2 K/mm3 (0.7-4.5); Lymphocytes % 24.3 % (10-50); Mean Corpuscular HGB Conc 32.6 g/dL (31.8-35.4); Mean Corpuscular Hemoglobin 31.1 pg (27.0-31.2); Mean Corpuscular Volume 95.5 fl (80-94); Mean Platelet Volume 7.1 fl (7.4-10.4); Monocytes # 0.3 K/mm3 (0.1-1.0); Monocytes % 7.1 % (1.7-9.3); Neutrophils # 3.1 K/mm3 (1.8-7.8); Neutrophils % 65.3 % (37.0-80.0); Platelet Count 292 K/mm3 (142-424); Red Cell Distribution Width 12.6 % (11.5-17.5); White Blood Count 4.8 K/mm3 (4.8-10.8)
[2019-11-12 12:20] LABS: Chloride 101 mmol/L (98-107); Sodium 138 mmol/L (136-145)
[2019-11-12 12:21] LABS: Potassium 3.8 mmoL/L (3.5-5.1)
[2019-11-12 12:23] LABS: Alanine Aminotransferase 16 U/L (12-78); Amylase 105 U/L (30-110); Anion Gap 10.8 mEq/L (5-15); Aspartate Amino Transferase 28 U/L (17-59); Blood Urea Nitrogen 15 mg/dl (9-20); Calcium 9.5 mg/dl (8.4-10.2); Carbon Dioxide 30 mmol/L (22.0-30.0); Estimated Glomerular Filt Rate 89 ml/min (>60); GFR (African American) 107 ML/MIN (>60); Glucose 86 mg/dl (74-100)
[2019-11-12 12:24] LABS: Albumin Level 4.3 g/dl (3.5-5.0); Albumin/Globulin Ratio 1.5 (1.1-1.8); Alkaline Phosphatase 75 U/L (38-126); Bilirubin,Total 0.6 mg/dl (0.2-1.3); Globulin 2.9 g/dL (1.3-3.2); Lipase 545 U/L (23-300); Total Protein,Serum 7.2 g/dl (6.3-8.2)
== END ==
PROVIDERS: Visit Provider Surgery
DX: R10.9 Unspecified abdominal pain (principal)
CPT/HCPCS: 36415; 80053; 82150; 83690; 85025

== ENCOUNTER 2019-11-16 06:46 | Day surgery (SDC) | payer OTHER, SELFPAY ==
[2019-11-15 10:39] VITALS: BMI 19.4
[2019-11-16] VITALS (7 sets, daily range): BP systolic 108–144; BP diastolic 69–96; PULSE 69–82; RESP 16–20; TEMP 36.4–36.6; O2SAT 98–100
--- NOTE | 2019-11-16 07:46 | P.PCN_ITS ---
- Procedure: Date: 11/16/19 Procedure Performed:: Esophagogastroduodenoscopy with biopsies Indications:: Patient is a 54-year-old male referred by Aggie Geiger for upper endoscopy. He had presented to the emergency department on 11/08/2019 with midepigastric abdominal pain which awoke him a couple of days earlier. He had associated vomiting. He presented to the emergency department and CT scan revealed mild thickening of the distal esophagus. He did follow-up in his primary care provid er's office and was started on omeprazole which has had some improvement in reflux symptoms but he has had ongoing abdominal pain and some nausea. Of note, the patient was clinically diagnosed with ulcers 15 years ago. Patient does smoke. He rarely drinks alcohol. He does take occasional NSAIDs. I felt that given the nature of his symptoms it may be reasonable to proceed with upper endoscopy with biopsies. If this is completely unremarkable gallbladder etiology may be considered. Less likely etiology that may need to be investigated as chronic mesenteric ischemia. I would advocate colonoscopy at some point for completeness as a screening procedure. Of note, preprocedure laboratory studies revealed a above normal lipase. Performing Provider:: Peng Jordan MD Referring Provider:: Aggie Geiger Sedation:: Propofol Procedure:: Patient was taken to endoscopy procedure room. He was positioned in lateral decubitus position. Adequate intravenous sedation was achieved with anesthesia titration of propofol. Olympus endoscope was inserted via the oropharynx advanced to the esophagus. Overall the esophagus appeared unremarkable. Gastroesophageal junction was encountered at approximately 40 cm from the incisors. Stomach was cannulated and insufflated. Retroflexion revealed a small sliding hiatal hernia. He had some erythematous gastritis in the cardia. There were a few scattered erosions in the antrum. However, most notable, there was a moderately large ulcer along the lesser curvature in the mid body of the stomach. Estimated size 15 mm. There is no evidence of any stigmata of recent bleeding. There is exudate in the base. The pylorus was traversed and the endoscope was advanced to the distal duodenum which appeared unremarkable. Duodenal bulb was unremarkable. Endoscope was withdrawn into the stomach once again and gastric antral mucosal biopsy was obtained for CLOtest for H. pylori. A couple of biopsies were obtained at the lateral edges of the ulcer. A couple biopsies were obtained at the gastroesophageal junction to rule out Guerrier's esophagus. Stomach was desufflated and the endoscope was withdrawn. Findings:: Small sliding hiatal hernia Diffuse gastritis Appreciable ulcer lesser curvature mid body of stomach Recommendations:: Patient needs high-dose proton pump inhibitors. I will see him in the office next week to follow-up pathology results. If benign likely repeat upper endoscopy in 8 or 10 weeks to assess for completeness of healing. Treat H. pylori if positive. Complications:: None immediately apparent Estimated blood obtained (mL): 2
--- NOTE | 2019-11-16 07:47 | P.PN_ITS ---
[facility] Anesthesia Checklist - Patient Identification Patient Identification: Arm Band - Structural Data Admitted From: Home Planned Operative Procedure/s: egd Consent for Planned Operative Procedure(s) Verified: Yes Verified Documents: Surgical Consent, History and Physical - NPO Status Verified Time NPO: 00:00 - Additional verifications Anesthesia Reactions: No - Airway Assessment C-Spine Mobility Assessed: Yes (mp2) TMJ Mobility Assessed: Yes Dentition: Edentulous - Neurological Assessment Level of Consciousness: Awake, Alert - Anesthesia Plan Anesthesia Risk discussed: Yes Anesthesia Plan: Verified ASA Class: III Anesthesia Type: MAC [facility] History I have reviewed the patient's past medical history: Yes Medical History: Reports:: Chronic Obstructive Pulmonary Disease (COPD), Coronary Artery Disease, Hyperlipidemia, Hypertension Denies:: Cancer, Diabetes Mellitus Type 1, Diabetes Mellitus Type 2, Gastroesophageal Reflux Disease(GERD), Gastrointestinal Bleed, Internal Pacemaker, MRSA, Renal Disease, Seizures, Ulcer *Have you ever received a pneumonia vaccine?: No *Have you received a flu vaccine this season?: No Other Medical History: Reports: Anemia Anesthesia experience/problems:: nac Other Surgeries: Yes: Cardiac Catheterization, Coronary Stent, Other. No: Pacemaker Amputation: No Fractures: No - *Social History Educational Level: Completed GED/General Educational Development Smoking Status: Current every day smoker Tobacco Type: cigarettes # Packs/Day (cigarettes): 1 #Yrs smoked (if former smoker): 35 Alcohol Intake: never Alcohol Intake Frequency:: a few times a month Substance Use Type: denies use *Occupational Status:: employed Housing: house Household Members: family *Travel in the last 8 weeks: Inside the [facility] Family Hx:: Unable to obtain
== END 2019-11-16 08:30 | disposition home or self-care (01) ==
PROVIDERS: PCP Nurse Practitioner Family; Visit Provider Surgery
PROC: 0DJ08ZZ Inspection of Upper Intestinal Tract, Via Natural or Artificial Opening Endoscopic (ICD-10-PCS; CPT 43235; principal; 2019-11-16 07:30)
DX: K29.60 Other gastritis without bleeding (principal); K44.9 Diaphragmatic hernia without obstruction or gangrene; K25.9 Gastric ulcer, unspecified as acute or chronic, without hemorrhage or perforation; Z79.82 Long term (current) use of aspirin; Z79.899 Other long term (current) drug therapy
CPT/HCPCS: 43239; 87339

== ENCOUNTER → 2020-02-28 11:16 | Outpatient (CLI) | payer OTHER, SELFPAY ==
[2020-02-28 13:45] LABS: Coronavirus 19 IgG Antibody Negative (Negative); Coronavirus 19 IgM Antibody Negative (Negative)
== END ==
PROVIDERS: Visit Provider Surgery
DX: Z01.818 Encounter for other preprocedural examination (principal)
CPT/HCPCS: 36415; 86328

== ENCOUNTER 2020-02-29 06:17 | Day surgery (SDC) | payer OTHER, SELFPAY ==
[2020-02-24 13:32] VITALS: BMI 20.2
[2020-02-29 06:32] VITALS: BP 126/89; PULSE 77; RESP 18; TEMP 36.6; O2SAT 98
--- NOTE | 2020-02-29 06:52 | P.PN_ITS ---
[facility] Anesthesia Checklist - Patient Identification Patient Identification: Arm Band, Verbal (Name & ) - Structural Data Admitted From: Home Planned Operative Procedure/s: EGD & Colonoscopy Consent for Planned Operative Procedure(s) Verified: Yes Verified Documents: Surgical Consent, History and Physical - NPO Status Verified Time NPO: 00:00 - Chart Verification Results Verified: None - Additional verifications Anesthesia Reactions: No - Airway Assessment C-Spine Mobility Assessed: Yes (MP 2, TMD 3, Full neck ROM) TMJ Mobility Assessed: Yes Dentition: Edentulous - Neurological Assessment Level of Consciousness: Awake, Alert, Appropriate, Follows Commands Hx Seizures: No Numbness or tingling in extremities: No - Anesthesia Plan Anesthesia Risk discussed: Yes Anesthesia Plan: Verified ASA Class: III Anesthesia Type: MAC [facility] History I have reviewed the patient's past medical history: Yes Medical History: Reports:: Chronic Obstructive Pulmonary Disease (COPD), Coronary Artery Disease, Gastroesophageal Reflux Disease(GERD) Denies:: Cancer, Diabetes Mellitus Type 1, Diabetes Mellitus Type 2, Gastrointestinal Bleed, Internal Pacemaker, MRSA, Renal Disease, Seizures, Ulcer *Have you ever received a pneumonia vaccine?: No *Have you received a flu vaccine this season?: No Anesthesia experience/problems:: No prior complications Other Surgeries: Yes: Cardiac Catheterization, Coronary Stent, EGD, Other. No: Pacemaker Amputation: No Fractures: No - *Social History Last grade of school completed: GED Smoking Status: Current every day smoker Tobacco Type: cigarettes # Packs/Day (cigarettes): 1 #Yrs smoked (if former smoker): 35 Alcohol Intake: current Alcohol Intake Frequency:: a few times a month Substance Use Type: denies use *Occupational Status:: employed Housing: house Household Members: family *Travel in the last 8 weeks: None Family Hx:: Unable to obtain
[2020-02-29 07:32] VITALS: O2SAT 98
[2020-02-29 08:20] VITALS: BP 90/57; PULSE 64; RESP 18; TEMP 36.1; O2SAT 97
--- NOTE | 2020-02-29 08:21 | HMH.SCOPE ---
- Procedure: Date: 02/29/20 Procedure Performed:: 1. Esophagogastroduodenoscopy with biopsies 2. Total colonoscopy to terminal ileum with polypectomy by snare and biopsy forceps Indications:: Presents for EGD and colonoscopy. He is somewhat of a poor historian. His primary care provider is Aggie Geiger. He had undergone upper endoscopy on 11/16/2019 for epigastric pain and was found to have a large gastric ulcer in the mid body of the stomach. When he followed up after the procedure he was noted to have positive H. pylori and plan was for initiation of H. pylori therapy. Patient followed up once again but had not taken the H. pylori eradication therapy. Therefore arrangements were made for this. Of note, he did have biopsies performed which were benign. Patient is never had previous colonoscopy and plan was for follow-up upper endoscopy to assess for eradication of H. pylori and healing of the ulcer as well as for colonoscopy for screening purposes. He states that he did undergo H. pylori therapy. Interestingly, patient does have a history of previous coronary stenting a couple of years ago and reportedly is on Brilinta and aspirin but he has not seen cardiology for almost 2 years and had discontinued the Brilinta on his own volition. Performing Provider:: Peng Jordan MD Referring Provider:: Kolby Geiger Sedation:: Propofol Procedure:: Patient was taken to endoscopy procedure room. He was positioned in lateral decubitus position. Adequate intravenous sedation was achieved. Olympus endoscope was inserted via the oropharynx advanced through the esophagus. Esophagus appeared normal. Stomach was cannulated and insufflated. Retroflexion revealed no evidence of any appreciable hiatal hernia. Surveillance was carried out of the gastric lumen. There was noted to be no evidence of any gastric ulcer. There was findings of mild gastritis. Biopsy was obtained for CLOtest for H. pylori. There was some prominent mucosa at the pylorus with minor narrowing of the pyloric channel. Endoscope was advanced through the pylorus and duodenal sweep. This appeared unremarkable. Duodenal bulb was unremarkable. A couple biopsies were obtained of the pyloric channel. Once again, there was noted to be no evidence of any gastric body ulcer. Stomach was desufflated and the scope was withdrawn. Next attention was turned to colonoscopy. Digital examination was performed which was unremarkable. Variable stiffness Olympus colonoscope was inserted via the anus and advanced to the cecum. Colonoscope was advanced a short distance into the terminal ileum. Colonic preparation was fair but adequate visualization was achieved with irrigation and suctioning. Colonoscope was slowly withdrawn through the colon with careful surveillance. In transverse colon there appeared to be a small AVM. Biopsy was performed due to its atypical appearance. In transverse colon there was a sessile adenomatous polyp removed with cold snare. In the rectosigmoid region there were a couple of hyperplastic appearing polyps removed with cold biopsy forceps. In the rectum there were several hyperplastic appearing polyps removed with cold biopsy forceps. There was a rectal polyp which appeared to be adenomatous which was removed with cold cutting snare and labeled rectal polyp #2. He had no evidence of any pathologic internal hemorrhoids. Colonoscope was withdrawn. Findings:: Mild gastritis No evidence of any gastric body ulcer Prominent mucosa at the pyloric channel Transverse colon presumed AVM Transverse colon polyp removed with cold snare Rectosigmoid polyps, likely hyperplastic, removed with cold biopsy forceps Rectal polyp x3, likely hyperplastic, removed with cold biopsy forceps Rectal polyp, presumably adenomatous, removed with cold snare Recommendations:: If H. pylori still positive plan for additional H. pylori eradication therapy. Otherwise remain on antaci
[2020-02-29 08:30] VITALS: BP 106/49; PULSE 56; RESP 18; O2SAT 98
[2020-02-29 08:40] VITALS: BP 136/63; PULSE 82; RESP 18; O2SAT 100
--- NOTE | 2020-02-29 08:40 | SUR.PHASEII ---
Pt awakened to name and touch to shoulder. Pleasant and talkative immediately. Pepsi to drink.
[2020-02-29 08:56] VITALS: BP 137/82; PULSE 69; RESP 18; O2SAT 100
== END 2020-02-29 09:05 | disposition home or self-care (01) ==
LOC: OUTP 06:18
PROVIDERS: PCP Nurse Practitioner Family; Visit Provider Surgery
PROC: 0DJ08ZZ Inspection of Upper Intestinal Tract, Via Natural or Artificial Opening Endoscopic (ICD-10-PCS; CPT 43235; principal; 2020-02-29 07:30)
DX: Z12.11 Encounter for screening for malignant neoplasm of colon (principal); Z87.19 Personal history of other diseases of the digestive system; K29.70 Gastritis, unspecified, without bleeding; K63.5 Polyp of colon; K55.20 Angiodysplasia of colon without hemorrhage; J44.9 Chronic obstructive pulmonary disease, unspecified; I25.10 Atherosclerotic heart disease of native coronary artery without angina pectoris; K21.9 Gastro-esophageal reflux disease without esophagitis; Z95.818 Presence of other cardiac implants and grafts; Z72.0 Tobacco use; Z88.0 Allergy status to penicillin; Z79.899 Other long term (current) drug therapy
CPT/HCPCS: 43239; 45380; 45385; 87339; J2704

== ENCOUNTER → 2020-04-03 08:35 | Outpatient (CLI) | payer OTHER, SELFPAY ==
[2020-04-03 12:10] LABS: Coronavirus 19 IgG Antibody Negative (Negative); Coronavirus 19 IgM Antibody Negative (Negative)
== END ==
PROVIDERS: Visit Provider Surgery
DX: Z01.818 Encounter for other preprocedural examination (principal); Z13.810 Encounter for screening for upper gastrointestinal disorder
CPT/HCPCS: 36415; 86328

== ENCOUNTER 2020-04-04 06:20 | Day surgery (SDC) | payer OTHER, SELFPAY ==
[2020-04-04 06:39] VITALS: BP 128/67; PULSE 68; RESP 18; TEMP 36.4; O2SAT 99
--- NOTE | 2020-04-04 07:10 | HMH.ANESCL ---
[facility] Anesthesia Checklist - Patient Identification Patient Identification: Arm Band - Structural Data Admitted From: Home Planned Operative Procedure/s: egd Consent for Planned Operative Procedure(s) Verified: Yes Verified Documents: Surgical Consent, History and Physical - NPO Status Verified Time NPO: 00:00 - Additional verifications Anesthesia Reactions: No - Airway Assessment C-Spine Mobility Assessed: Yes (mp2) TMJ Mobility Assessed: Yes Dentition: Edentulous - Neurological Assessment Level of Consciousness: Awake, Alert - Anesthesia Plan Anesthesia Risk discussed: Yes Anesthesia Plan: Verified ASA Class: III Anesthesia Type: MAC [facility] History I have reviewed the patient's past medical history: Yes Medical History: Reports:: Chronic Obstructive Pulmonary Disease (COPD), Coronary Artery Disease, Gastroesophageal Reflux Disease(GERD), Hyperlipidemia, Hypertension Denies:: Cancer, Diabetes Mellitus Type 1, Diabetes Mellitus Type 2, Gastrointestinal Bleed, Internal Pacemaker, MRSA, Renal Disease, Seizures, Ulcer *Have you ever received a pneumonia vaccine?: No *Have you received a flu vaccine this season?: No Other Medical History: Reports: Anemia Anesthesia experience/problems:: nac Other Surgeries: Yes: Cardiac Catheterization, Colonoscopy, Coronary Stent, EGD, Other. No: Pacemaker Amputation: No Fractures: No - *Social History Last grade of school completed: High school graduate Smoking Status: Current every day smoker Tobacco Type: cigarettes # Packs/Day (cigarettes): 1 #Yrs smoked (if former smoker): 35 Alcohol Intake: current Alcohol Intake Frequency:: holidays/special occasions only Substance Use Type: denies use *Occupational Status:: employed Housing: house Household Members: family *Travel in the last 8 weeks: None Family Hx:: Unable to obtain
[2020-04-04 07:26] VITALS: O2SAT 99
--- NOTE | 2020-04-04 07:41 | HMH.SCOPE ---
- Procedure: Date: 04/04/20 Patient Date of :: 1965 Procedure Performed:: Esophagogastroduodenoscopy with biopsies Indications:: Patient presents for follow-up EGD. He is somewhat of a poor historian. His primary care provider is Kolby Geiger. He had undergone upper endoscopy on 11/16/2019 for epigastric pain and was found to have a large gastric ulcer in the mid body of the stomach. This was biopsied and was benign. When he followed up after the procedure he was noted to have positive H. pylori and plan was for initiation of H. pylori therapy. Patient followed up once again but had not taken the H. pylori eradication therapy. He did finally undergo H. pylori therapy. Patient had never had previous colonoscopy and plan was for follow-up upper endoscopy to assess for eradication of H. pylori and healing of the ulcer as well as for colonoscopy for screening purposes. Interestingly, patient does have a history of previous coronary stenting a couple of years ago and reportedly is on Brilinta and aspirin but he has not seen cardiology for almost 2 years and had discontinued the Brilinta on his own volition. During his recent upper endoscopy and colonoscopy findings were as follows: Mild gastritis No evidence of any gastric body ulcer Prominent mucosa at the pyloric channel Transverse colon presumed AVM Transverse colon polyp removed with cold snare Rectosigmoid polyps, likely hyperplastic, removed with cold biopsy forceps Rectal polyp x3, likely hyperplastic, removed with cold biopsy forceps Rectal polyp, presumably adenomatous, removed with cold snare Of the colon polyps only 2 were tubular adenomas. Patient states that he still does have some epigastric pains. Patient had persistent epigastric pains. Given the unusual concerning location of the previous ulcer and ongoing symptoms as well as prior H. pylori plan was made for repeat EGD to ensure complete healing of the mid body gastric ulcer and confirm H. pylori eradication. It is unclear if the patient has been taking proton pump inhibitors. Performing Provider:: Peng Jordan MD Referring Provider:: Aggie Geiger Sedation:: Propofol Procedure:: Patient was taken to endoscopy procedure room. He was positioned in a lateral decubitus position. Adequate intravenous sedation was achieved with anesthesia titration of propofol. Olympus endoscope was inserted via the oropharynx advanced through the esophagus. Overall esophagus appeared relatively unremarkable. Gastroesophageal junction was encountered at approximately 40 cm from the incisors. Stomach was cannulated and insufflated. Retroflexion revealed no evidence of any appreciable hiatal hernia. He did have some nonerosive moderate gastritis in the proximal stomach. There was some diffuse nonerosive gastritis in the remainder of the stomach. No evidence of any gastric ulcer. Gastric antral mucosal biopsies obtained for CLOtest for H. pylori. Additional gastric biopsies were obtained. Pylorus was traversed and the duodenum appeared unremarkable. A couple of biopsies were obtained at the gastroesophageal junction. Stomach was desufflated and the endoscope was withdrawn. Findings:: Gastritis Recommendations:: Plan for another course of H. pylori therapy if still positive. However, this is unlikely. Do recommend continuation of acid suppression therapy. Complications:: None immediately apparent Estimated blood obtained (mL): 2
[2020-04-04 07:44] VITALS: BP 91/63; PULSE 64; RESP 18; TEMP 36.7; O2SAT 93
[2020-04-04 07:54] VITALS: BP 95/66; PULSE 70; RESP 18; TEMP 36.7; O2SAT 96
[2020-04-04 08:04] VITALS: BP 121/84; PULSE 68; RESP 18; TEMP 36.7; O2SAT 99
[2020-04-04 08:14] VITALS: BP 135/79; PULSE 65; RESP 18; TEMP 36.7; O2SAT 99
== END 2020-04-04 08:14 | disposition home or self-care (01) ==
LOC: OUTP 06:21
PROVIDERS: PCP Nurse Practitioner Family; Visit Provider Surgery
PROC: 0DJ08ZZ Inspection of Upper Intestinal Tract, Via Natural or Artificial Opening Endoscopic (ICD-10-PCS; CPT 43235; principal; 2020-04-04 07:30)
DX: Z86.19 Personal history of other infectious and parasitic diseases (principal); Z87.19 Personal history of other diseases of the digestive system; J44.9 Chronic obstructive pulmonary disease, unspecified; K29.70 Gastritis, unspecified, without bleeding; Z09 Encounter for follow-up examination after completed treatment for conditions other than malignant neoplasm; I25.10 Atherosclerotic heart disease of native coronary artery without angina pectoris; K21.9 Gastro-esophageal reflux disease without esophagitis; E78.5 Hyperlipidemia, unspecified; I10 Essential (primary) hypertension; D64.9 Anemia, unspecified; Z95.818 Presence of other cardiac implants and grafts; Z72.0 Tobacco use
CPT/HCPCS: 43239; 87339

== ENCOUNTER 2021-06-10 11:23 | Emergency (ER) | payer OTHER, SELFPAY ==
[2021-06-10 11:50] VITALS: BP 124/74; PULSE 90; RESP 18; TEMP 36.7; O2SAT 97
--- NOTE | 2021-06-10 12:22 | HMH.EDUTC ---
[facility] [place] Disposition Clinical Impression: Bronchitis Sinusitis Qualifiers: Sinusitis location: unspecified location Chronicity: unspecified Qualified Code(s): J32.9 - Chronic sinusitis, unspecified Disposition: Home, Self-Care Condition on Discharge: Good Instructions: Sinusitis, Acute Bronchitis, DI for Sinusitis Additional Instructions: ? Start antibiotic today. Be sure to complete entire prescription even if feeling better ? Monitor temp. Tylenol every 4 hours as needed and / or ibuprofen every 6 hours as needed ( As long as your primary care physician has told you that it ok to take both. For fever/aches/pains ER if no less than 101 despite Tylenol or Motrin ? Humidifier/vaporizer or hot steamy shower ? Inhaler every 4-6 hours as needed like we discussed. If unsure how to use it, ask pharmacist to demonstrate how. Should help open airways and improve cough, wheezing, and shortness of breath ? Mucinex during the day for your cough and cough suppressant only at night. Be sure to drink lots of water. Insurance may not cover a prescriptions for mucinex. Might be cheaper to get 400mg tablets and take 2 tablet in the morning, mid-day and evening with lots of water. *Start steroid tomorrow. Helps with inflammation therefore, cough and wheezing. Follow directions on the package. Reviewed side effects. Patient reports taking them before. Follow up IMMEDIATELY for new or worsening of symptoms OR no noticeable improvement over the next 48-72 hours. 911 immediately for any life threatening symptoms such as chest pain or difficulty breathing Prescriptions: Albuterol Sulfate [Proventil-HFA 90mcg/puff Inh] 1 - 2 puffs IH Q6HP PRN #1 each PRN Reason: Shortness Of Breath Transmission Status: Received by [facility] Benzonatate [Benzonatate 100mg cap] 100 mg PO Q8HP PRN #15 cap PRN Reason: Cough Transmission Status: Received by [facility] methylPREDNISolone [Medrol 4mg tab] 4 mg PO DIRECTED #21 tab Transmission Status: Received by [facility] Azithromycin [Z-Avinash 250mg Tab] 250 mg PO DIRECTED #6 tab Transmission Status: Received by [facility] Referrals: Kolby Geiger APRN [Primary Care Provider] - As needed Time of Disposition: 12:37 Medical Decision Making - Maynor Inquiry Pt receiving controlled substance: No Maynor was queried for this patient: No Vital Signs: 06/10/21 11:50 06/10/21 12:43 Temperature 98.0 F 98.0 F Temperature Source Oral Pulse Rate 90 Pulse Rate [Right Brachial] 90 Respiratory Rate 18 18 Blood Pressure 124/74 Blood Pressure [Right Arm] 124/74 Blood Pressure Mean [Right Arm] 90 Blood Pressure Source [Right Arm] Automatic Cuff Blood Pressure Position [Right Arm] Sitting 02 Sat by Pulse Oximetry 97 Oxygen Delivery Method Room Air Orders (Tests/Meds): ED MEDICATIONS Discontinued Medications Generic Name Dose Route Start Last Admin Trade Name Freq PRN Reason Stop Dose Admin Methylprednisolone Sodium Succinate 125 mg 06/10/21 12:34 06/10/21 12:41 Methylprednisolone Sod Succ 125mg Vial IM 06/10/21 12:35 125 mg ONCE ONE Administration [facility] HPI - General Stated complaint: chest congestion Time Seen by Provider: 06/10/21 12:22 Mode of Arrival: Ambulatory Source of Information: Patient Limitations: No Limitations Description of Symptoms (Recalled from Triage Doc. by RN): PATIENT C/O CHEST CONGESTION, RUNNY NOSE, SORE THROAT AND PRODUCTIVE COUGH SINCE FRIDAY HEENT Symptoms (Recalled from RN notes): Yes Resp Symptoms (Recalled from RN notes): Yes Skin Symptoms (Recalled from RN notes): No MS Symptoms (Recalled from RN notes): No Functional Status (Recalled from RN notes): WNL - History of Present Illness Provider Complaint: Patient states that he worked outside a week or two ago in the rain and thinks it got him sick States that since then he has been having sinus pain and pressure along with drainage in the b
[2021-06-10 12:43] VITALS: BP 124/74; PULSE 90; RESP 18; TEMP 36.7; O2SAT 97
== END 2021-06-10 13:04 | disposition home or self-care (01) ==
PROVIDERS: Emergency Provider Nurse Practitioner; PCP Nurse Practitioner Family
DX: J20.9 Acute bronchitis, unspecified (principal); J32.9 Chronic sinusitis, unspecified; J44.9 Chronic obstructive pulmonary disease, unspecified; K21.9 Gastro-esophageal reflux disease without esophagitis; F17.210 Nicotine dependence, cigarettes, uncomplicated
CPT/HCPCS: 96372; 99202; G0463

== ENCOUNTER 2021-08-25 09:06 | Emergency (ER) | payer OTHER, SELFPAY ==
[2021-08-25 09:20] VITALS: BP 138/93; PULSE 109; RESP 18; TEMP 36.8; O2SAT 99; BMI 20.7
--- NOTE | 2021-08-25 09:41 | HMH.EDUTC ---
[facility] [place] Dis[place] Clinical Impression: Viral syndrome, Exposure to COVID-19 virus Disposition: Home, Self-Care Condition on Discharge: Good Instructions: DI for COVID-19 (Suspected or Confirmed ), Preventing the Spread of Coronavirus Discharge Instructions Additional Instructions: Drink plenty of fluids. Take tylenol or ibuprofen for pain or fever. Take the medications as directed. Follow up with your regular doctor. GO TO THE ER FOR ANY WORSENING SYMPTOMS Quarantine until you know the results of your covid-19 test. Notify your school or workplace of your results and follow their instructions regarding return to work/school. Prescriptions: Albuterol Sulfate [Albuterol Sulfate Hfa] 2 puffs IH Q6HP PRN 30 Days #1 each PRN Reason: Shortness Of Breath Transmission Status: Pending to [facility] Ondansetron [Zofran 4mg ODT] 4 mg PO Q8HP PRN #12 tab PRN Reason: Nausea Transmission Status: Pending to [facility] Benzonatate [Benzonatate 100mg cap] 100 mg PO TIDP PRN #30 cap PRN Reason: Cough Transmission Status: Pending to [facility] methylPREDNISolone [Medrol] 4 mg PO DIRECTED 6 Days #21 packet Transmission Status: Pending to [facility] RX: Azithromycin [Z-Avinash 250mg Tab*] 250 mg PO UD DOSE PK #6 tab Transmission Status: Pending to [facility] Referrals: Kolby Geiger APRN [Primary Care Provider] - Forms: Work/School Release Time of Disposition: 10:05 Medical Decision Making - Medical Records Medical records reviewed: No: I reviewed the patient's medical records. - Maynor Inquiry Pt receiving controlled substance: No Vital Signs: 08/25/21 09:20 08/25/21 10:02 Temperature 98.3 F 98.3 F Temperature Source Oral Pulse Rate 109 H Pulse Rate [Left] 109 H Respiratory Rate 18 18 Blood Pressure 138/93 H Blood Pressure [Right Arm] 138/93 H Blood Pressure Mean [Right Arm] 108 02 Sat by Pulse Oximetry 99 - Lab Data Lab results reviewed: Yes: I reviewed the patient's lab results. Orders (Tests/Meds): ORDERS Category Date Time Status Covid-19 Nasal PCR ([facility]) Routine Lab 08/25/21 09:22 Received [facility] [place] HPI - General Stated complaint: covid exposure/symptoms Time Seen by Provider: 08/25/21 09:30 Mode of Arrival: Ambulatory Source of Information: Patient Limitations: No Limitations Description of Symptoms (Recalled from Triage Doc. by RN): pt c/o BERRY, cough, loss of taste, body aches and fever. pts is covid positive. HEENT Symptoms (Recalled from RN notes): Yes (BERRY and loss of taste) Resp Symptoms (Recalled from RN notes): Yes (cough) Skin Symptoms (Recalled from RN notes): No MS Symptoms (Recalled from RN notes): No Functional Status (Recalled from RN notes): wnl - History of Present Illness Provider Complaint: He c/o feeling very bad for the past 2 days. He has had chills, fever up to 101, nonproductive cough, body aches and loss of taste and smell. His currently has covid-19. He has a history of copd. - Related Data Previous Rx's Medication Instructions Recorded Albuterol Sulfate [Proventil-HFA 1 - 2 puffs IH Q6HP PRN #1 each 06/10/21 90mcg/puff Inh] Benzonatate [Benzonatate 100mg 100 mg PO Q8HP PRN #15 cap 06/10/21 cap] RX: Azithromycin [Z-Avinash 250mg 250 mg PO DIRECTED #6 tab 06/10/21 Tab] methylPREDNISolone [Medrol 4mg 4 mg PO DIRECTED #21 tab 06/10/21 tab] Albuterol Sulfate [Albuterol 2 puffs IH Q6HP PRN 30 Days #1 each 08/25/21 Sulfate Hfa] Benzonatate [Benzonatate 100mg 100 mg PO TIDP PRN #30 cap 08/25/21 cap] Ondansetron [Zofran 4mg ODT] 4 mg PO Q8HP PRN #12 tab 08/25/21 RX: Azithromycin [Z-Avinash 250mg Tab*] 250 mg PO UD DOSE PK #6 tab 08/25/21 methylPREDNISolone [Medrol] 4 mg PO DIRECTED 6 Days #21 01/29/22 packet Allergies Allergy/AdvReac Type Severity Reaction Status Date / Time Penicillins Allergy Unknown Verified 04/24/20 09:03
[2021-08-25 10:02] VITALS: BP 138/93; PULSE 109; RESP 18; TEMP 36.8
--- NOTE | 2021-08-26 10:36 | PC.NURSE ---
informed patient that he is positive
== END 2021-08-25 10:03 | disposition home or self-care (01) ==
PROVIDERS: Emergency Provider Nurse Practitioner Family; PCP Nurse Practitioner Family
DX: U07.1 COVID-19 (principal); F17.210 Nicotine dependence, cigarettes, uncomplicated; B34.9 Viral infection, unspecified
CPT/HCPCS: 99202; C9803; G0463; U0003; U0005

== ENCOUNTER 2022-01-28 08:15 | Emergency (ER) | payer OTHER, SELFPAY ==
[2022-01-28 08:20] VITALS: BP 141/88; PULSE 78; RESP 19; TEMP 36.8; O2SAT 97
--- NOTE | 2022-01-28 08:27 | XR_ITS ---
PROCEDURE INFORMATION: Exam: XR Left Shoulder Exam date and time: 01/28/2022 8:33 AM Age: 56 years old Clinical indication: Pain; Shoulder; Left TECHNIQUE: Imaging protocol: Radiologic exam of the Left shoulder. Views: 2 or more views. COMPARISON: CR XR CHEST 2V 11/08/2019 11:30 AM FINDINGS: Bones/joints: No acute fracture or malalignment. Mild acromioclavicular joint degenerative changes. Soft tissues: Normal. IMPRESSION: No acute fracture or malalignment.
--- NOTE | 2022-01-28 08:32 | HMH.EDUTC ---
[facility] [place] Clinical Impression: Shoulder strain Qualifiers: Encounter type: initial encounter Laterality: left Qualified Code(s): S46.912A - Strain of unspecified muscle, fascia and tendon at shoulder and upper arm level, left arm, initial encounter Disposition: Home, Self-Care Condition on Discharge: Good Instructions: Muscle Strain, DI for Shoulder Pain, Methocarbamol, Etodolac Additional Instructions: *Etodolac zack 8 hours with meal as needed for pain/inflammation *Not additional anti-inflammatory like Ibuprofen motrin, aleve, advil with the above amount of Etodolac. You can still take Tylenol every 4 hours as needed if you need something else for pain *Ice 20 minutes every 2 hours for the first 48 hours after the initial injury followed by moist heat every 20 minutes 3-4 times a day to affected area *Muscle relaxer every 12 hours as needed for muscle spasms but remember, it WILL cause drowsiness You cannot take it and drive, operate machinery or care for small children. *Keep this area active, no movement leads to more stiffness, However take it easy and avoid heavy lifting pushing or pulling *Follow up with you family doctor if no improvement for further treatment Prescriptions: Etodolac 200 mg PO Q8HP PRN #20 cap PRN Reason: Moderate Pain Transmission Status: Pending to [facility] methocarbamoL [Methocarbamol] 750 mg PO Q12HP PRN #10 tab PRN Reason: Muscle Spasm Transmission Status: Pending to [facility] methylPREDNISolone [Medrol 4mg tab] 4 mg PO DIRECTED #21 tab Transmission Status: Pending to [facility] Referrals: Kolby Geiger APRN [Primary Care Provider] - As needed Time of Disposition: 09:10 Medical Decision Making - Maynor Inquiry Pt receiving controlled substance: No Maynor was queried for this patient: No Vital Signs: 01/28/22 08:20 Temperature 98.3 F Temperature Source Oral Pulse Rate [Left Brachial] 78 Respiratory Rate 19 Blood Pressure [Left Arm] 141/88 H Blood Pressure Mean [Left Arm] 105 Blood Pressure Source [Left Arm] Automatic Cuff Blood Pressure Position [Left Arm] Sitting 02 Sat by Pulse Oximetry 97 Oxygen Delivery Method Room Air - Radiology Data #1 Image(s): Shoulder Image Reviewed: Yes I reviewed the patient's radiology image Preliminary Findings: No Fracture Seen Medical Decision Narrative: Patient reports pain in left shoulder x 3 weeks worse with movement Discussed transfer to the ED to rule out Cardiac and patient declined States pain is worse with movement and shoots down arm into hand when he raises arm or moves it certain ways Pain improved when he doesnt move it Again discussed EKG and send to ED for further work up and evaluation and patient declined States that pain only occurs and worsens with movement State that he will follow up with his PCP or Return to ED if any worsening of symptoms or if he starts having chest pain [facility] [place] HPI - General Stated complaint: Shoulder pain, hand numbness Time Seen by Provider: 01/28/22 08:33 Mode of Arrival: Ambulatory Source of Information: Patient Limitations: No Limitations Description of Symptoms (Recalled from Triage Doc. 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
[2022-01-28 09:10] VITALS: BP 141/88; PULSE 78; RESP 19; TEMP 36.8; O2SAT 97
== END 2022-01-28 09:14 | disposition home or self-care (01) ==
PROVIDERS: Emergency Provider Nurse Practitioner; PCP Nurse Practitioner Family
DX: S46.912A Strain of unspecified muscle, fascia and tendon at shoulder and upper arm level, left arm, initial encounter (principal); Z88.0 Allergy status to penicillin
CPT/HCPCS: 73030; 99212; G0463

== ENCOUNTER 2022-03-04 08:31 | Emergency (ER) | payer OTHER, SELFPAY ==
--- NOTE | 2022-03-04 08:42 | XR_ITS ---
FINAL REPORT CLINICAL HISTORY: cough, SOB, coughing up blood last night and this morning, hx of stents in heart COMPARISON: November 08, 2019 FINDINGS: Two views of the chest were obtained. The heart size and pulmonary vascularity are within normal limits. The mediastinum is normal. No acute pulmonary abnormality is identified. There is no pneumothorax. The bony thorax is intact. IMPRESSION: No active cardiopulmonary disease. Reviewed, Interpreted and Dictated by Peng Patel III, MD Transcribed by Aniya Villeda Authenticated and [facility]
[2022-03-04 08:49] VITALS: BP 137/84; PULSE 71; RESP 18; TEMP 36.6; O2SAT 100; BMI 19.8
[2022-03-04 08:52] LABS: UTC Strep Screen (Rapid) Negative (Negative)
--- NOTE | 2022-03-04 08:59 | HMH.EDUTC ---
[facility] Disposition Clinical Impression: Gastroenteritis Acute bronchitis Qualifiers: Bronchitis organism: unspecified organism Qualified Code(s): J20.9 - Acute bronchitis, unspecified Disposition: Home, Self-Care Condition on Discharge: Good Instructions: Acute Bronchitis, DI for Acute Bronchitis Additional Instructions: Drink plenty of fluids. Take tylenol or ibuprofen for pain or fever. Take the medications as directed. Follow up with your regular doctor. GO TO THE ER FOR ANY WORSENING SYMPTOMS Quarantine until you know the results of your covid-19 test. Notify your school or workplace of your results and follow their instructions regarding return to work/school. Prescriptions: Ondansetron [Zofran 4mg ODT] 4 mg PO Q8HP PRN #20 tab PRN Reason: Nausea Transmission Status: Received by [facility] Benzonatate [Benzonatate 100mg cap] 100 mg PO TIDP PRN #30 cap PRN Reason: Cough Transmission Status: Received by [facility] Azithromycin [Z-Avinash 250mg Tab*] 250 mg PO UD DOSE PK #6 tab Transmission Status: Received by [facility] Referrals: Elijah Laws MD [Primary Care Provider] - Forms: Work/School Release Time of Disposition: 09:06 Medical Decision Making - Medical Records Medical records reviewed: No: I reviewed the patient's medical records. - Maynor Inquiry Pt receiving controlled substance: No Vital Signs: 03/04/22 08:49 03/04/22 09:12 Temperature 97.9 F 97.9 F Temperature Source Oral Pulse Rate 71 Pulse Rate [Left] 71 Respiratory Rate 18 18 Blood Pressure 137/84 Blood Pressure [Right Arm] 137/84 Blood Pressure Mean [Right Arm] 101 02 Sat by Pulse Oximetry 100 - Lab Data Lab results reviewed: Yes: I reviewed the patient's lab results. Lab Results 03/04/22 08:50: Strep Scn Rapid Clinic Negative Orders (Tests/Meds): ORDERS Category Date Time Status Strep Screen Confirmation Stat Micro 03/04/22 08:50 Received [facility] HPI - General Stated complaint: Cough, vomiting, SOA Time Seen by Provider: 03/04/22 08:50 Mode of Arrival: Ambulatory Source of Information: Patient Limitations: No Limitations Description of Symptoms (Recalled from Triage Doc. by RN): patient comes in with complaints of cough, feeling short of breath at times. patient also reports vomitting blood. symptoms began last night. HEENT Symptoms (Recalled from RN notes): No Resp Symptoms (Recalled from RN notes): Yes Skin Symptoms (Recalled from RN notes): No MS Symptoms (Recalled from RN notes): No Functional Status (Recalled from RN notes): n/a - History of Present Illness Provider Complaint: He states that for the past 2 days he has had sinus congestion, cough and chest congestion. - Related Data Previous Rx's Medication Instructions Recorded Albuterol Sulfate [Proventil-HFA 1 - 2 puffs IH Q6HP PRN #1 each 06/10/21 90mcg/puff Inh] Albuterol Sulfate [Albuterol 2 puffs IH Q6HP PRN 30 Days #1 each 08/25/21 Sulfate Hfa] Ondansetron [Zofran 4mg ODT] 4 mg PO Q8HP PRN #12 tab 08/25/21 varenicline 0.5 mg tablet 0.5 mg PO BID #60 tab 10/17/21 Etodolac 200 mg PO Q8HP PRN #20 cap 01/28/22 methocarbamoL [Methocarbamol] 750 mg PO Q12HP PRN #10 tab 01/28/22 ibuprofen 800 mg tablet 800 mg PO TID PRN #60 tab 02/12/22 prednisone 20 mg tablet See Rx Instructions PO DAILY #15 02/25/22 tab Azithromycin [Z-Avinash 250mg Tab*] 250 mg PO UD DOSE PK #6 tab 03/04/22 Benzonatate [Benzonatate 100mg 100 mg PO TIDP PRN #30 cap 03/04/22 cap] Ondansetron [Zofran 4mg ODT] 4 mg PO Q8HP PRN #20 tab 03/04/22 Allergies Allergy/AdvReac Type Severity Reaction Status Date / Time Penicillins Allergy Unknown Verified 03/04/22 08:53 - Worker's Comp Is this a Worker's Comp case?: No [facility] History - Hepatitis A Screen Attestation statement:: This patient has been screened for Hepatitis A risk factors. I have reviewed the patient's past medical h
[2022-03-04 09:12] VITALS: BP 137/84; PULSE 71; RESP 18; TEMP 36.6
== END 2022-03-04 09:13 | disposition home or self-care (01) ==
PROVIDERS: Emergency Provider Nurse Practitioner Family; PCP Family Medicine
DX: J20.9 Acute bronchitis, unspecified (principal); D50.9 Iron deficiency anemia, unspecified; R11.10 Vomiting, unspecified; I10 Essential (primary) hypertension; I25.10 Atherosclerotic heart disease of native coronary artery without angina pectoris; K21.9 Gastro-esophageal reflux disease without esophagitis; E78.5 Hyperlipidemia, unspecified; F17.210 Nicotine dependence, cigarettes, uncomplicated; Z79.1 Long term (current) use of non-steroidal anti-inflammatories (NSAID); Z79.51 Long term (current) use of inhaled steroids; Z95.5 Presence of coronary angioplasty implant and graft
CPT/HCPCS: 71046; 87880; 99213; G0463

== ENCOUNTER → 2022-04-15 16:24 | Outpatient (CLI) | payer OTHER, SELFPAY ==
--- NOTE | 2022-04-15 16:24 | MR_ITS ---
PROCEDURE INFORMATION: Exam: MR Left Upper Extremity Joint Without Contrast; Shoulder Exam date and time: 04/15/2022 4:35 PM Age: 56 years old Clinical indication: Pain; Shoulder; Left; Additional info: Left shoulder pain. Left shoulder pain. Pain when raising arm above head. Left arm and hand numbness. Symptoms for 6 months. TECHNIQUE: Imaging protocol: Magnetic resonance imaging of the Left upper extremity without contrast. Exam focused on the shoulder. COMPARISON: CR XR SHOULDER LT MIN 2V 01/28/2022 8:33 AM FINDINGS: Bones and cartilage: Acromioclavicular arthropathy. There is effacement of the tissue planes underlying a downsloping acromion process. Minimal edema within the rotator cuff interval. Minimal osseous cystic change is identified involving the humeral head. No dislocation of the glenohumeral joint. Joint spaces: Minimal fluid within the glenohumeral joint, without significant effusion. Minimal acromioclavicular effusion. Glenoid labrum: Minimal increased signal intensity within the posterosuperior aspect of the labrum, and labral tear cannot be excluded. Heterogeneous signal intensity of the inferior aspect of the labrum, although labral tear is not well-defined. Bursae: Minimal fluid within the subdeltoid/subacromial bursa. Supraspinatus tendon: See Infraspinatus tendon finding. Infraspinatus tendon: Heterogeneous signal intensity of the supraspinatus and infraspinatus tendons, consistent with tendinopathy. Minimal increased signal intensity of the undersurface of the supraspinatus and infraspinatus tendons, and partial tear cannot be excluded. Subscapularis tendon: A small focus of increased PD signal intensity seen at the undersurface of the distal subscapularis tendon, consistent with partial tear. Teres minor tendon: No evidence of tear. Tendon of biceps brachii: No evidence of tear. Glenohumeral ligaments: No evidence of tear of the inferior glenohumeral ligament. Muscles: No visualized acute abnormality. Soft tissues: Unremarkable. IMPRESSION: 1. Acromioclavicular arthropathy. There is effacement of the tissue planes underlying a downsloping acromion process. 2. Partial tear of the subscapularis tendon. 3. Tendinopathy of the supraspinatus and infraspinatus tendons. Minimal increased signal intensity of the undersurface of the supraspinatus and infraspinatus tendons, and partial tear cannot be excluded. 4. Minimal fluid within the subdeltoid/subacromial bursa. 5. Additional findings described above.
== END ==
PROVIDERS: PCP Family Medicine; Visit Provider Orthopaedic Surgery
DX: M75.42 Impingement syndrome of left shoulder (principal)
CPT/HCPCS: 73221

== ENCOUNTER 2022-04-26 15:17 | Emergency (ER) | payer OTHER, SELFPAY ==
[2022-04-26] VITALS (8 sets, daily range): BP systolic 119–162; BP diastolic 76–102; PULSE 68–86; RESP 14–18; TEMP 36.6–36.7; O2SAT 96–99; BMI 20.7
--- NOTE | 2022-04-26 15:12 | ECG_ITS ---
APPROVED REPORT Exam: Resting ECG HR:81 bpm ECG Measurements Heart Rate 81 AXES MD 159 P 78 QRSd 89 QRS 24 QT 358 T 40 QTc 395 Conclusion SINUS RHYTHM NORMAL ECG UNCONFIRMED REPORT Electronically signed by : Rubens Mckeon MD 04/27/2022 16:06:48
--- NOTE | 2022-04-26 15:21 | XR_ITS ---
FINAL REPORT CLINICAL HISTORY: CP COMPARISON: 03/04/2022 FINDINGS: The heart size is normal. The mediastinum is normal. There is no focal infiltrate or edema. There are no pleural effusions. There is no pneumothorax. IMPRESSION: No acute cardiopulmonary process Reviewed, Interpreted and Dictated by Curt Gonzalez MD Transcribed by Veronica Delarosa Authenticated and [facility]
[2022-04-26 15:28] LABS: Basophils # 0.1 K/mm3 (0-0.2); Basophils % 1.4 % (0.1-2.0); Eosinophils # 0.2 K/mm3 (0.0-0.4); Eosinophils % 2.7 % (0.1-12.0); Hematocrit 40.5 % (42.0-52.0); Hemoglobin 13.3 g/dL (14.1-18.0); Lymphocytes # 1.4 K/mm3 (0.7-4.5); Lymphocytes % 19.7 % (10-50); Mean Corpuscular HGB Conc 32.8 g/dL (31.8-35.4); Mean Corpuscular Hemoglobin 30.9 pg (27.0-31.2); Mean Platelet Volume 7.1 fl (7.4-10.4); Monocytes # 0.5 K/mm3 (0.1-1.0); Monocytes % 6.9 % (1.7-9.3); Neutrophils # 4.8 K/mm3 (1.8-7.8); Neutrophils % 69.3 % (37.0-80.0); Platelet Count 349 K/mm3 (142-424); Red Blood Count 4.31 M/mm3 (4.60-6.20); Red Cell Distribution Width 14.6 % (11.5-17.5); White Blood Count 6.9 K/mm3 (4.8-10.8)
[2022-04-26 15:30] LABS: Chloride 106 mmol/L (98-107); Potassium 4.3 mmoL/L (3.5-5.1); Sodium 139 mmol/L (136-145)
[2022-04-26 15:33] LABS: Anion Gap 10.3 mEq/L (5-15); Blood Urea Nitrogen 15 mg/dl (9-20); Carbon Dioxide 27 mmol/L (22.0-30.0); Creatinine Clearance Estimated 92 mL/min (50-200); Estimated Glomerular Filt Rate 101 ml/min (>60); GFR (African American) 122 ML/MIN (>60)
[2022-04-26 15:34] LABS: Calcium 8.6 mg/dl (8.4-10.2); Glucose 101 mg/dl (74-100)
[2022-04-26 15:46] LABS: Troponin I < 0.01 ng/ml (0.00-0.034)
--- NOTE | 2022-04-26 15:58 | HMH.EDGENADL ---
Discharge Plan Disposition Patient Disposition: Home, Self-Care Condition: Good Prescriptions Prescriptions: New clopidogrel [Plavix] 75 mg tablet 75 mg PO DAILY Qty: 20 0RF bisoprolol fumarate 10 mg tablet 10 mg PO DAILY Qty: 20 0RF atorvastatin 40 mg tablet 40 mg PO DAILY Qty: 20 0RF No Action ibuprofen 800 mg tablet 800 mg PO TID PRN (Reason: pain) Qty: 60 3RF albuterol sulfate 8.5 GM HFA aerosol inhaler 2 puffs inhalation Q6HP PRN (Reason: Shortness Of Breath) 30 Days Qty: 1 5RF etodolac 200 MG capsule 200 mg PO Q8HP PRN (Reason: Moderate Pain) Qty: 20 0RF methocarbamol 750 MG tablet 750 mg PO Q12HP PRN (Reason: Muscle Spasm) Qty: 10 0RF benzonatate 100 MG capsule 100 mg PO TIDP PRN (Reason: Cough) Qty: 30 0RF Referrals Follow up/Referrals: Elijah Laws MD [Primary Care Provider] - See instructions Activity Restrictions/Add. Instructions Additional Instructions/Restrictions: Take [id number] aspirin 81 mg daily. Taking bisoprolol, Plavix, and atorvastatin as prescribed. See Dr. Reddy in his office on Friday at 9 AM. Return emergency department if any return of chest pain or worsening of symptoms. Clinical Impressions Clinical Impression: Chest pain Instructions Patient Instructions: DI for Chest Pain Discharge ED Provider: Willie Thao Adult [facility] General Chief complaint: Chest Pain Stated complaint: Chest Pain Time Seen by Provider: 04/26/22 16:00 Mode of Arrival: Ambulatory Limitations: No Limitations Description of Symptoms (Recalled from ER Triage Doc. by RN): C/O CP that is localized to the left side, with occational SOA History of Present Illness HPI narrative: States that he developed chest pain at 1 PM while at rest. Left anterior chest pain described as sharp without radiation. Mild shortness of breath. No nausea or diaphoresis. No treatment prior to arrival. States the pain is constant and is currently 6.5/10. States that he has 3 cardiac stents, the last 2 being placed in 2014, and this feels like previous heart pain. His medical front desk specialist is Dr. Redyd and he says he has not seen him in about 3 years. He continues to smoke. He says that he is not on aspirin and is not on any medications for hypertension, hyperlipidemia, or diabetes. States that he was taken off with medication for blood pressure and cholesterol several years ago. Related Data Previous Rx's Medication Instructions Recorded albuterol sulfate 90 mcg/actuation 2 puffs inhalation Q6HP PRN 08/25/21 aerosol inhaler Shortness Of Breath 30 days #1 ea etodolac 200 mg capsule 200 mg PO Q8HP PRN Moderate Pain 01/28/22 #20 caps methocarbamol 750 mg tablet 750 mg PO Q12HP PRN Muscle Spasm 01/28/22 #10 tabs ibuprofen 800 mg tablet 800 mg PO TID PRN pain #60 tabs 02/12/22 benzonatate 100 mg capsule 100 mg PO TIDP PRN Cough #30 caps 03/04/22 atorvastatin 40 mg tablet 40 mg PO DAILY #20 tabs 04/26/22 bisoprolol fumarate 10 mg tablet 10 mg PO DAILY #20 tabs 04/26/22 clopidogrel 75 mg tablet (Plavix) 75 mg PO DAILY #20 tabs 04/26/22 Allergies Allergy/AdvReac Type Severity Reaction Status Date / Time Penicillins Allergy Unknown Verified 04/18/22 14:20 [facility] Medical History (Updated 04/26/22 @ 16:34 by Willie Thao MD) Iron deficiency anemia Social History Smoking Status: Current every day smoker tobacco type: cigarettes packs per day: 1 second hand exposure: No alcohol intake: never substance use type: denies use current occupational status: other Travel in the last 8 weeks: None household members: family housing: house current occupation: [employer] current occupational exposures/hazards: No caffeine: Yes ROS Obtained: Yes Systems reviewed as appropriate & no additional complaints except as documented Constitutional Constitutional: Denies fever(s), Denie
--- NOTE | 2022-04-26 16:30 | PC.NURSE ---
MARIAM NICHOLE speaking with Dr. Reddy
--- NOTE | 2022-04-26 16:33 | PC.NURSE ---
methane gas collection system operator paging dr. connell who is production cloth cutter for dr. jones
--- NOTE | 2022-04-26 16:35 | PC.NURSE ---
MARIAM NICHOLE speaking with dr. connell who is applications instructor for dr. jones
--- NOTE | 2022-04-26 16:36 | PC.NURSE ---
notified beam house inspector of admission
--- NOTE | 2022-04-26 16:45 | PC.NURSE ---
MARIAM NICHOLE states was at BS speaking with pt about POC. States pt is refusing admission to the hospital. pt is agreeable to stay for a 2nd troponin and will f/u with dr. castillo in his office on friday microphone boom operator paged dr. jonathan BECERRA MD speaking with dr. castillo now
[2022-04-26 16:46] LABS: Coronavirus 19, PCR Not Detected (NotDetected); Influenza A, PCR Not Detected (NotDetected); Influenza B, PCR Not Detected (NotDetected)
--- NOTE | 2022-04-26 16:46 | PC.NURSE ---
pt states now pain free 0/
--- NOTE | 2022-04-26 16:50 | PC.NURSE ---
road roller operator hot mix paging dr. connell per er request
--- NOTE | 2022-04-26 16:52 | PC.NURSE ---
notified dry house wheeler pt is refusing admission
--- NOTE | 2022-04-26 16:52 | PC.NURSE ---
notified housekeeping laundry worker of admission
--- NOTE | 2022-04-26 18:16 | PC.NURSE ---
2nd trop drawn and sent to lab
[2022-04-26 18:48] LABS: Troponin I < 0.01 ng/ml (0.00-0.034)
== END 2022-04-26 19:24 | disposition home or self-care (01) ==
PROVIDERS: Emergency Provider Emergency Medicine; PCP Family Medicine
DX: R07.9 Chest pain, unspecified (principal); I50.20 Unspecified systolic (congestive) heart failure; R06.02 Shortness of breath; D50.8 Other iron deficiency anemias; Z20.822 Contact with and (suspected) exposure to COVID-19; I20.9 Angina pectoris, unspecified; F17.210 Nicotine dependence, cigarettes, uncomplicated; Z79.02 Long term (current) use of antithrombotics/antiplatelets; Z79.1 Long term (current) use of non-steroidal anti-inflammatories (NSAID); Z79.51 Long term (current) use of inhaled steroids; Z79.82 Long term (current) use of aspirin; Z79.899 Other long term (current) drug therapy; Z88.0 Allergy status to penicillin
CPT/HCPCS: 71045; 80048; 84484; 85025; 93005; 99284; C9803; U0003; U0005

== ENCOUNTER → 2022-05-08 07:47 | Outpatient (CLI) | payer OTHER, SELFPAY ==
--- NOTE | 2022-05-08 | CA_ITS ---
APPROVED REPORT Exam: Exercise Treadmill Technologist: Adrianne Barrett, Ht: 5 ft 8 in Wt: 140 lbs BSA: 1.76 m2 HR: 62 bpm BP: 124/86 mmHg Rhythm: NSR,T WAVE ABNS INFERIORLY AND IN V6, CANNOT R/O OLD ANTERIOR MS Medical History Medical History: HTN, Hyperlipidemia Medications: Atorvastatin,,,,, CloPIdogrel,,,,, Ibuprofen,,,,, BisOPROLOL Fumarate,,,,, Allergies: PENICILLIN Cardiac Risk Factors: HTN, Hyperlipidemia, Smoking Stress Test Details Test: Philippe HR Resting HR: 67 bpm Max Heart Rate (APMHR): 166 bpm Max HR Achieved: 136 bpm Target HR (85% APMHR): 141 bpm % of APMHR: 81 Recovery HR: 78 bpm BP Resting BP: 124/86 mmHg Max BP: 144/84 mmHg Recovery BP: 122.0/81.0 mmHg ECG Resting ECG: NSR,T WAVE ABNS INFERIORLY AND IN V6, CANNOT R/O OLD ANTERIOR MS Clinical Exercise duration: 10:30 min Highest Stage Achieved: Exercise capacity: 12.8 METs Stress ECG Conclusion PT EXERCISED 10:30 INTO STAGE 4 PHILIPPE PROTOCOL MAX HR: 136 % OF PM: 82% MAX B/P: 144/84 METS: 12.8 TEST STOPPED DUE TO:SOA, FATIGUE NO CP OCC PVC AND FUSION BEATS NORMILIZATION OF T WAVES IN LEAD V6. MILD EXAGGERATION OF BASELINE INFERIOR LEAD T WAVE ABNS BLUNTED HR RESPONSE ON BETA-ERICA MYOVIEW IMAGES REPORTED SEPARATELY Test Summary REST . . . . . . . Standing REST . . . . . . . Sitting REST 04:45 0.0 0.0 67 . 124/ 86 . . Stage 1 01:00 10.0 1.7 80 . . . . Stage 1 02:00 10.0 1.7 80 . . . . Stage 1 03:00 10.0 1.7 89 . 115/ 70 . . Stage 2 01:00 12.0 2.5 91 . . . . Stage 2 02:00 12.0 2.5 94 . . . . Stage 2 03:00 12.0 2.5 95 . 122/ 70 . . Stage 3 01:00 14.0 3.4 103 . . . . Stage 3 02:00 14.0 3.4 106 . . . . Stage 3 03:00 14.0 3.4 111 . 142/ 74 . . Stage 4 01:00 16.0 4.2 129 . . . . Stage 4 01:30 16.0 4.2 136 . . . Stop exercise at 10:30 RECOVERY 01:00 0.0 0.0 98 . . . . RECOVERY 02:00 0.0 0.0 82 . . . . RECOVERY 03:00 0.0 0.0 80 . 144/ 84 . . RECOVERY 04:00 0.0 0.0 79 . 142/ 78 . . RECOVERY 05:00 0.0 0.0 80 . 122/ 81 . . RECOVERY 05:17 0.0 0.0 85 . 122/ 81 . . Electronically signed by : Jorge Luis Armando MD 05/09/2022 06:46:40
--- NOTE | 2022-05-08 07:47 | NM_ITS ---
APPROVED REPORT Exam: Nuclear Stress Test Indication: CAD, 3 STENTS, HYPERLIPIDEMIA, C.P., DISEASEOF CORONARY , HTN, PRE OP FOR SHOULDER SURGERY Patient Location: Outpatient Stress Tech: Adrianne Barrett [place] Tech:Mandy SpicerSARA thomson RT (R)(N)(M) Ht: 5 ft 8 in Wt: 140 lbs HR: 62 bpm BP: 124/86 mmHg BSA: 1.76 m2 TID: 0.93 BMI: 21.2 History: CAD, 3 STENTS, HYPERLIPIDEMIA, C.P., DISEASEOF CORONARY , HTN, PRE OP FOR SHOULDER SURGERY Procedure: Patient exercised on Philippe protocol 10:30 minutes and sec, resting heart rate 62 bpm, resting blood pressure 124/86 mmHg, with exercise maximum heart rate achived was 136 bpm which is 82 % of the maximum predicted heart rate and blood pressure was 142/74 mmHg. Test was stopped due to LEG FATIGUE. Patient denied any complaint of chest pain. Patient has good exercise capacity, achieved 12.8 METs of workload on treadmill, the blood pressure response to exercise was Adequate. Electrocardiogram Resting electrocardiogram showed sinus rhythm inferior and lateral T wave changes, with exercise there is less than 1.[address] segment depression noted from the baseline EKG. The EKG portion of the exercise Myoview was nondiagnostic due to baseline abnormal EKG and patient not achieving the target heart rate due to beta-bobby. Cardiac Stress and Resting SPECT Images: Cardiac Stress and Resting SPECT images were obtained using technetium 99m Myoview 31.8 mCi stress and 10.09 mCi at rest. Gated SPECT for analysis of segmental wall motion and calculation of the ejection fraction also done. Prone images were also obtained. Cardiac stress and rest SPECT images show uniform myocardial activity without segmental perfusion abnormality, computer derived ejection fraction is 37% with left ventricular global hypokinesis. Right ventricle is normal size and contractility. Conclusion: 1. The EKG portion of the exercise Myoview is nondiagnostic as patient did not achieve the target heart. As well as due to baseline abnormal EKG. Patient has good exercise capacity achieved 12.8 METs of workload on treadmill, the blood pressure response to exercise was adequate, there was no exercise-induced chest discomfort. 2. No scintigraphic evidence of reversible ischemia seen at this level of exercise, computer derived ejection fraction is 37% with left ventricular global hypokinesis, right ventricle is normal size and contractility. 3. Abnormal exercise Myoview study due to low ejection fraction, no perfusion defect seen to suggest ischemia. Electronically signed by : Jorge Luis Armando MD 05/09/2022 06:51:54
--- NOTE | 2022-05-08 08:14 | CA_ITS ---
FINAL REPORT TECHNIQUE: Color Doppler, duplex Doppler and solorzano scale sonography of the bilateral neck arterial vasculature was performed. Velocities were measured in the carotid arteries. Stenosis evaluation based on the validated velocity criteria. CLINICAL HISTORY: LORRAINE, HTN FINDINGS: The peak systolic velocity of the right common carotid artery is 91 cm/s. The peak systolic velocity of the right internal carotid artery is 96 cm/s and end diastolic velocity 52 cm/s. The ICA/CCA ratio is 1.1. A mild amount of plaque is present. The right external carotid artery is patent. The right vertebral artery is patent with antegrade flow. The peak systolic velocity of the left common carotid artery is 92 cm/s. The peak systolic velocity of the left internal carotid artery is 107 cm/s and end diastolic velocity 55 cm/s. The ICA/CCA ratio is 1.2. A mild amount of plaque is present. The left external carotid artery is patent.The left vertebral artery is patent with antegrade flow. Incidental note is made of a 1 cm right thyroid nodule. IMPRESSION: Less than 50% bilateral carotid stenosis. Bilateral patent vertebral arteries with antegrade flow. If indicated, CTA or MRA could further evaluate. Reviewed, Interpreted and Dictated by Peng Patel III, MD Transcribed by Aniya Villeda Authenticated and [facility]
--- NOTE | 2022-05-08 08:14 | CA_ITS ---
APPROVED REPORT EXAM: Comprehensive 2D, Doppler, and color-flow Echocardiogram Senior Data Scientist: Mckayla Gamble RT(R) Ht: 5 ft 8 in Wt: 140lbs BSA: 1.76 BP: 126/77 mmHg Indications: pre op clearance, HTN, smoker, hyperlipidemia, CAD, CM. 2D Dimensions LVOT 1.92 cm (M/F) 1.5-2.5 LVEF (Flores's) 41.70 % M: 52 - 72 LV Volume 104.20 mL M: 62 - 150 LV Volume Index 59.54 mL/m2 M: 34 - 74 M-Mode Dimensions RVDd 1.64 cm (0.9-2.6) LA Diam 2.19 cm (1.9-4.0) LVDd 5.20 cm (3.5-5.7) Ao Diam 1.95 cm (2.0-3.7) LVDs 4.16 cm (3.5-5.7) IVSd 0.50 cm (0.6-1.1) PWd 0.87 cm (0.6-1.1) EF (Teich) 40.70% FS 20.00% EDV (Teich) 129.50 mL ESV (Teich) 76.80 mL LV Diastology E Decel Time 147.00 (160-240 msec) E/A Ratio 0.9 MED E' 6.10 (< 7 cm/sec) E'/MED E' Ratio 10.05 (>14) LAT E' 7.00 (<10 cm/sec) E/LAT E' Ratio 8.76 (>14) Mitral Valve MV E Max Zeferino. 61.00 (40-130 cm/s) MV A Velocity 70.00 (40-130 cm/s) E/A Ratio 0.87 MV Decel. Time 147.00 (160-240 ms) MV PHT 43.00 ms Left Ventricle Left atrium is normal size left ventricle is normal size, reduced left ventricular systolic function, estimated ejection fraction approximately 40%, left ventricle is globally hypokinetic. Diastolic parameters are inconclusive. Right Ventricle Right atrium and right ventricle are normal size and contractility. Aortic Valve Aortic valve is grossly normal there is no aortic stenosis aortic insufficiency. Mitral Valve Mitral valve grossly normal, there is no mitral stenosis, there is trace mitral regurgitation. Tricuspid Valve Tricuspid valve grossly normal, there is trace tricuspid regurgitation, tricuspid regurgitation jet velocity is inadequate for calculation of the right ventricular systolic pressure. Pulmonic Valve Pulmonic valve is poorly visualized. Great Vessels Aortic root is normal size. Inferior vena cava is normal size with normal inspiratory collapse. Pericardium No significant pericardial effusion noted. Conclusion 1. Normal left ventricular size estimate ejection fraction 40% left ventricle is globally hypokinetic, diastolic parameters are inconclusive. 2. Trace mitral and tricuspid regurgitation. 3. No significant pericardial effusion. 4. Inferior vena cava is normal size with normal inspiratory collapse. Electronically signed by : Jorge Luis Armando MD 05/09/2022 06:08:54
== END ==
PROVIDERS: PCP Family Medicine; Visit Provider Physician Assistant
DX: Z01.810 Encounter for preprocedural cardiovascular examination (principal); I25.118 Atherosclerotic heart disease of native coronary artery with other forms of angina pectoris; I11.9 Hypertensive heart disease without heart failure; E78.49 Other hyperlipidemia; F17.200 Nicotine dependence, unspecified, uncomplicated; I65.29 Occlusion and stenosis of unspecified carotid artery; Z95.5 Presence of coronary angioplasty implant and graft
CPT/HCPCS: 78452; 93017; 93306; 93880; A9502

== ENCOUNTER 2022-05-27 07:57 | Day surgery (SDC) | payer OTHER, SELFPAY ==
[2022-05-24 11:34] VITALS: BMI 21.6
[2022-05-27] VITALS (10 sets, daily range): BP systolic 111–138; BP diastolic 57–76; PULSE 60–73; RESP 18–20; TEMP 36.1–43; O2SAT 96–98
--- NOTE | 2022-05-27 08:37 | SUR.PREOP ---
Lab at bedside to draw CMP, Preop antibiotic changed to clindamycin from Ancef D/T PCN allergy.
--- NOTE | 2022-05-27 09:01 | SUR.PREOP ---
Pt's given pt progress number, verbalized understanding
[2022-05-27 09:03] LABS: Chloride 105 mmol/L (98-107); Sodium 140 mmol/L (136-145)
[2022-05-27 09:04] LABS: Potassium 4.3 mmoL/L (3.5-5.1)
[2022-05-27 09:06] LABS: Alanine Aminotransferase 22 U/L (12-78); Albumin Level 4.2 g/dl (3.5-5.0); Albumin/Globulin Ratio 1.6 (1.1-1.8); Alkaline Phosphatase 82 U/L (38-126); Anion Gap 11.3 mEq/L (5-15); Aspartate Amino Transferase 31 U/L (17-59); Bilirubin,Total 0.3 mg/dl (0.2-1.3); Blood Urea Nitrogen 14 mg/dl (9-20); Carbon Dioxide 28 mmol/L (22.0-30.0); Creatinine Clearance Estimated 96 mL/min (50-200); Estimated Glomerular Filt Rate 101 ml/min (>60); GFR (African American) 122 ML/MIN (>60); Globulin 2.7 g/dL (1.3-3.2); Total Protein,Serum 6.9 g/dl (6.3-8.2)
[2022-05-27 09:07] LABS: Glucose 94 mg/dl (74-100)
--- NOTE | 2022-05-27 13:00 | P.OP_ITS ---
Date of procedure: 05/27/22 Pre-op Diagnosis:: Left shoulder impingement syndrome Post-op Diagnosis:: Same Procedure performed:: Left shoulder arthroscopy with subacromial decompression and limited debridement anterior labrum partial-thickness rotator cuff tear Surgeon:: Rodri Newell DO Warehouse [employer] Receiving Clerk(s):: Michelle Srinivasan PA-C FREELANCE DIGITAL PROJECT MANAGER:: Ga Silverman Anesthesia: GETA and regional Estimated blood loss (mL): 0 Operative findings:: Impingement syndrome with fraying degenerative fraying anterior labrum and small partial-thickness bursal rotator cuff tear Operative note:: Patient was identified preoperatively. Left shoulder was marked yes my initials. Underwent a block with anesthesia. Taken to the operating room placed upon the operating bed. General anesthesia ministered airway secured. Then placed in a lateral position with a beanbag with all bony prominences well- padded. Left shoulder was then prepped and draped in normal sterile fashion. Once prepped and draped final operative timeout performed to identify proper patient procedure and extremity. Everyone involved in the case agree. No counter indications to beginning. Did receive preoperative antibiotics. Marking pen was used to donnell bony landmarks of the shoulder and standard portal sites. Skin knife was used to incise standard posterior viewing portal and blunt with trocar was placed in the glenohumeral joint. This was exchanged with a camera. Diagnostic arthroscopy began. Within the glenohumeral joint I went directly above the subscapularis tendon where the anterior working portal was made and switch with a purple cannula. Diagnostic arthroscopy revealed minor fraying anterior labrum degenerative in nature. This was debrided. Articular surface was intact. Biceps tendon anchor was intact. Undersurface of the rotator cuff intact. Tensions then brought the subacromial space. There was significant bursitis in the subacromial space which was debrided with a sucker shaver and the cautery device. I was able to interrogate the rotator cuff there is no full-thickness tearing of the rotator cuff only minor bursal sided fraying and partial tearing. This was debrided. There was significant bursitis in the subacromial space which was continually debrided for visualization. Lateral working portal was also established. Barrel bur was selected and subacromial decompression and acromioplasty was performed with a barrel bur. There was some mild down spurring at the distal clavicle but no significant hypertrophy at the AC joint. So the distal clavicle and subacromial decompression where done in the same plane. Further evaluation his shoulder showed no further pathology. Joint was drained. Cameras removed. Skin closed with nylon stitch sterile dressing placed patient placed in a sling taken recovery in stable condition. Condition: stable Disposition: PACU Complications:: None apparent
--- NOTE | 2022-05-27 13:02 | P.PNANES_ITS ---
[facility] Anesthesia Record Part I Anesthesia Record I Intake, IV Amount: 1,050 Estimated blood loss (mL): 3 Urine output (mL): 0 Blood Products used (#): none Blood Pressure: 138/57 SaO2: 96 Pulse Rate: 72 Respiratory Rate: 20 Temperature: 97.5 F Patient is:: Drowsy and Stable Stable to PACU at:: 12:50
--- NOTE | 2022-05-27 13:25 | SUR.PHASEII ---
Dr. Newell said could restart Clopidogrel on 05/28/22, pt verbalized understanding.
--- NOTE | 2022-05-27 13:26 | SUR.PHASEI ---
1316 called and gave detailed report to Yaima Dunn RN 1320 transported via stretcher to post op. vital signs stable. denies pain at this time. left in stable condition with Yaima Dunn RN at bedside.
--- NOTE | 2022-05-28 07:41 | EXP.ANES.CKL ---
[facility] Medical History (Updated 05/23/22 @ 13:26 by Lizy Rg RN) Chronic cough COPD (chronic obstructive pulmonary disease) Encounter for pre-operative cardiovascular clearance Iron deficiency anemia Stenosis of carotid artery Surgical History (Updated 05/27/22 @ 08:20 by Rachna Dunn RN) History of coronary artery stent placement Family History Other Family history of cancer Family history of diabetes mellitus type II Family history of hypertension Social History Smoking Status: Current every day smoker tobacco type: cigarettes packs per day: 1 pack-years: 35 second hand exposure: No alcohol intake: never substance use type: denies use current occupational status: employed Travel in the last 8 weeks: None household members: family housing: house current occupation: [employer] current occupational exposures/hazards: No caffeine: Yes special bairon needs: No agree to transfusion: No do you feel safe at home: Yes victim of physical abuse: No victim of emotional abuse: No victim of sexual abuse: No would you like helpful sources: No [facility] Anesthesia Checklist Patient Identification Patient Identification: Arm Band Structural Data Admitted From: Home Planned Operative Procedure/s: Left Shoulder Arthroscopy Consent for Planned Operative Procedure(s) Verified: Yes Verified Documents: Surgical Consent and History and Physical NPO Status Verified Time NPO: 00:00 Additional verifications Anesthesia Reactions: No Hx Blood Transfusions: No Airway Assessment C-Spine Mobility Assessed: Yes TMJ Mobility Assessed: Yes Dentition: Edentulous Neurological Assessment Level of Consciousness: Awake and Alert Anesthesia Plan Anesthesia Risk discussed: Yes Anesthesia Plan: Verified ASA Class: III Anesthesia Type: General w/block (Left Interscalene Block. Risks/benefits explained. Pt verbalized understanding)
--- NOTE | 2022-05-28 07:42 | P.PNANES_ITS ---
[facility] Anesthesia Record Part II Anesthesia Record Part II Discharge Time: 13:20 Destination: Surgical Day Care (OP Surgery) PACU nurse assessment reviewed?: Yes Patient Condition:: Good Anesthesia Complications:: None Swallowing reflex intact?: Yes Cyanosis?: No Blood Pressure: 137/75 Pulse Rate: 70 Temperature: 97.5 F Mental Status: Alert & Oriented Pain level:: 0 Nausea and/or vomitting:: None Intake, IV Amount: 0
[2022-05-28 07:43] VITALS: BP 137/75; PULSE 70; TEMP 36.4
== END 2022-05-27 13:49 | disposition home or self-care (01) ==
PROVIDERS: PCP Family Medicine; Visit Provider Orthopaedic Surgery
PROC: (CPT 29805; principal; 2022-05-27 10:00)
DX: M75.42 Impingement syndrome of left shoulder (principal); M75.112 Incomplete rotator cuff tear or rupture of left shoulder, not specified as traumatic; S43.492A Other sprain of left shoulder joint, initial encounter; M75.52 Bursitis of left shoulder; I25.10 Atherosclerotic heart disease of native coronary artery without angina pectoris; I65.23 Occlusion and stenosis of bilateral carotid arteries; Z79.01 Long term (current) use of anticoagulants; Z79.899 Other long term (current) drug therapy; F17.210 Nicotine dependence, cigarettes, uncomplicated; Z95.5 Presence of coronary angioplasty implant and graft; I10 Essential (primary) hypertension
CPT/HCPCS: 29826; 29827; 29806; 36415; 80053; 96374; J2405

== ENCOUNTER 2022-08-04 15:14 | Emergency (ER) | payer OTHER, SELFPAY ==
[2022-08-04 15:30] VITALS: BP 100/56; PULSE 73; RESP 22; TEMP 36.7; O2SAT 98; BMI 20.5
--- NOTE | 2022-08-04 15:57 | EXP.UTC ---
Discharge Plan Disposition Patient Disposition: Home, Self-Care Condition: Good Prescriptions Prescriptions: No Action ibuprofen 800 mg tablet 800 mg PO TID PRN (Reason: pain) Qty: 60 3RF atorvastatin 40 mg tablet 40 mg PO DAILY nicotine 14 mg/24 hr patch 24 hour 1 patch transdermal DAILY clopidogrel [Plavix] 75 mg tablet 75 mg PO DAILY bisoprolol fumarate 10 mg tablet 10 mg PO DAILY losartan 25 mg tablet 25 mg PO DAILY oxycodone-acetaminophen [Percocet] 5-325 mg tablet 1 tab PO Q4H PRN (Reason: post op pain) Qty: 42 0RF Referrals Follow up/Referrals: Elijah Laws MD [Primary Care Provider] - See instructions Activity Restrictions/Add. Instructions Additional Instructions/Restrictions: Keep area clean and dry Allow dermabond to wear off finger do not pick or pluck it off Return if needed Watch for signs of infection such as redness, drainage and swelling Clinical Impressions Clinical Impression: Finger laceration Instructions Patient Instructions: DI for Laceration Repair-Skin Glue Discharge ED Provider: Amina Darling [facility] [place] General Stated complaint: AO01/08@1200 LT thumb lac Mode of Arrival: Ambulatory Source of Information: Patient Limitations: No Limitations Time Seen by Provider: 08/04/22 15:57 Description of Symptoms (Recalled from Triage Doc. by RN): PATIENT C/O LACERATION TO LEFT THUMB. HE STATES HE CUT IT ON A BROKEN PLATE WHILE WASHING DISHES TODAY HEENT Symptoms (Recalled from RN notes): No Resp Symptoms (Recalled from RN notes): No Skin Symptoms (Recalled from RN notes): Yes MS Symptoms (Recalled from RN notes): No Functional Status (Recalled from RN notes): WNL History of Present Illness Provider Complaint: Patient states that he was washing dishes earlier and cut the side of his left thumb on a broken plate States that he is on plavix and wrapped it up to get it stop bleeding and unsure when his last tetanus was so he came in to get it checked out Related Data Home Medications Medication Instructions Recorded Confirmed atorvastatin 40 mg tablet 40 mg PO DAILY Cholesterol 05/23/22 07/09/22 bisoprolol fumarate 10 mg tablet 10 mg PO DAILY htn 05/23/22 07/09/22 clopidogrel 75 mg tablet (Plavix) 75 mg PO DAILY Blood thinner 05/23/22 07/09/22 losartan 25 mg tablet 25 mg PO DAILY htn 05/23/22 07/09/22 nicotine 14 mg/24 hr daily 1 patch transdermal DAILY smoke 05/23/22 07/09/22 transdermal patch cessation Previous Rx's Medication Instructions Recorded ibuprofen 800 mg tablet 800 mg PO TID PRN pain #60 tabs 02/12/22 oxycodone-acetaminophen 5 mg-325 1 tab PO Q4H PRN post op pain #42 05/27/22 mg tablet (Percocet) tabs Allergies Allergy/AdvReac Type Severity Reaction Status Date / Time Penicillins Allergy Unknown Verified 07/09/22 09:57 Worker's Comp Is this a Worker's Comp case?: No [facility] Disclaimer: The information contained in this section may have been updated after the patient was seen, as this information can be updated by other users. Medical History (Updated 08/04/22 @ 16:20 by Amina Darling APRN) Chronic cough COPD (chronic obstructive pulmonary disease) Depression Encounter for pre-operative cardiovascular clearance Hyperlipidemia Hypertension Iron deficiency anemia Stenosis of carotid artery Surgical History History of coronary artery stent placement S/P arthroscopy of shoulder Family History Other Family history of cancer Family history of diabetes mellitus type II Family history of hypertension Social History (Updated 08/04/22 @ 15:43 by Octavia Porras RN) Smoking Status: Current every day smoker tobacco type: cigarettes packs per day: 1 pack-years: 35 second hand exposure: No alcohol intake: never substance use type: denies use current occupational status: employed T
[2022-08-04 16:04] VITALS: BP 100/56; PULSE 73; RESP 22; TEMP 36.7; O2SAT 98
== END 2022-08-04 16:24 | disposition home or self-care (01) ==
PROVIDERS: Emergency Provider Nurse Practitioner; PCP Family Medicine
DX: S61.012A Laceration without foreign body of left thumb without damage to nail, initial encounter (principal); Y93.G1 Activity, food preparation and clean up; Z23 Encounter for immunization; Z79.01 Long term (current) use of anticoagulants
CPT/HCPCS: 90471; 90715; 99212; 99213; G0463

== ENCOUNTER 2022-08-05 10:00 | Outpatient (RCR) | payer OTHER, SELFPAY ==
--- NOTE | 2022-07-15 10:59 | HMH.OTOPEV ---
OT Inpatient Evaluation Rehab OT Outpatient Eval Start: 07/15/22 10:38 Freq: Status: Active Protocol: Document 07/15/22 10:39 JEVON (Rec: 07/15/22 10:53 JEVON [id number]) E-signed By Calista Ch, OT Outpatient Therapy Subjective History Subjective History 57 year old male referred to skilled OP OT services after s /p [facility] arthroscopy with subacromial decompression and limited debridement anterior labrum rotator cuff on . Patient stated the pain started back in December 2021. MRI completed to [facility] on with findings: 1. Acromioclavicular arthropathy. There is effacement of the tissue planes underlying a downsloping acromion process. 2. Partial tear of the subscapularis tendon. 3. Tendinopathy of the supraspinatus and infraspinatus tendons. Minimal increased signal intensity of the undersurface of the supraspinatus and infraspinatus tendons, and partial tear cannot be excluded. 4. Minimal fluid within the subdeltoid/subacromial bursa. 5. Additional findings described above. X-ray to [facility] on 01/28/22 with no acute findings. Chief Complaint Pain,Weakness Symptom Type Ache,Sharp,Numbness Symptoms Relieved By Nothing Prior Functional Limitations Reaching,Lifting,Recreation Activity Current Functional Limitations Reaching,Lifting,Recreation Activity Symptom Description Constant and Continuous Level of pain today (0-10) 5 Pain scale - at its best (0-10) 5 Pain scale - at its worst (0-10) 8 Shoulder/Elbow Eval Shoulder Objective Measurements Shoulder ROM Left Shoulder Abduction Active Range of 93 Motion (degrees) Shoulder Flexion Active Range of Motion 120 (degrees) Query Text: Shoulder External Rotation Active Range 35 of Motion (degrees)
== END 2022-08-05 10:05 | disposition home or self-care (01) ==
LOC: OT 10:00
PROVIDERS: PCP Family Medicine; Visit Provider Orthopaedic Surgery
DX: M25.512 Pain in left shoulder (principal); M75.42 Impingement syndrome of left shoulder
CPT/HCPCS: 97010; 97014; 97110; 97140; 97165; G0283

== ENCOUNTER 2022-08-31 08:58 | Emergency (ER) | payer OTHER, SELFPAY ==
[2022-08-31 09:05] VITALS: BP 128/70; PULSE 73; RESP 19; TEMP 36.6; O2SAT 98; BMI 19.9
--- NOTE | 2022-08-31 09:38 | EXP.UTC ---
Discharge Plan Disposition Patient Disposition: Home, Self-Care Condition: Good Prescriptions Prescriptions: New azithromycin [azithromycin] 250 mg tablet 250 mg PO DIRECTED Qty: 6 0RF Rx Instructions: Take two (2) tablets on day #1, then one (1) tablet day #2 thru #5 benzonatate 100 mg capsule 100 mg PO BID PRN (Reason: cough) Qty: 14 0RF fluticasone propionate [fluticasone propionate] 50 mcg/actuation spray,suspension 1 spray intranasal DAILY Qty: 9.9 0RF No Action ibuprofen 800 mg tablet 800 mg PO TID PRN (Reason: pain) Qty: 60 3RF losartan 25 mg tablet See Rx Instructions .ROUTE .COMPLEX Qty: 90 1RF Dose Instruction: TAKE 1 TABLET BY MOUTH ONCE DAILY Rx Instructions: TAKE 1 TABLET BY MOUTH ONCE DAILY atorvastatin 40 mg tablet 40 mg PO DAILY nicotine 14 mg/24 hr patch 24 hour 1 patch transdermal DAILY clopidogrel [Plavix] 75 mg tablet 75 mg PO DAILY bisoprolol fumarate 10 mg tablet 10 mg PO DAILY oxycodone-acetaminophen [Percocet] 5-325 mg tablet 1 tab PO Q4H PRN (Reason: post op pain) Qty: 42 0RF Referrals Follow up/Referrals: Elijah Laws MD [Primary Care Provider] - See instructions Activity Restrictions/Add. Instructions Additional Instructions/Restrictions: Start antibiotic patient to take as ordered for a full length of time even if you feel better. Sinus infections do not get better overnight. It may take 2-3 days to notice much improvement so be sure to use conservative measures as discussed for symptoms. Flonase 1 spray each nostril daily to help with nasal congestion, sinus and ear pressure/information Increase fluids Humidifier/vaporizer as needed Tylenol and ibuprofen as needed for fever or pain. If symptoms do not improve or get worse return or be seen in the ER Follow-up with primary care this week Clinical Impressions Clinical Impression: Sinusitis Instructions Patient Instructions: DI for Sinusitis Discharge ED Provider: Fely ([facility])[place] [facility] [place] General Stated complaint: Congestion drainage cough Mode of Arrival: Ambulatory Source of Information: Patient Limitations: No Limitations Time Seen by Provider: 08/31/22 09:38 Description of Symptoms (Recalled from Triage Doc. by RN): PATIENT C/O COUGH AND CONGESTION X 4 DAYS HEENT Symptoms (Recalled from RN notes): No Resp Symptoms (Recalled from RN notes): Yes Skin Symptoms (Recalled from RN notes): No MS Symptoms (Recalled from RN notes): No Functional Status (Recalled from RN notes): WNL History of Present Illness Provider Complaint: 57 yr old male presents for cough, nasal congestion, sinus pressure and yellow/green drainage Related Data Home Medications Medication Instructions Recorded Confirmed atorvastatin 40 mg tablet 40 mg PO DAILY Cholesterol 05/23/22 07/09/22 bisoprolol fumarate 10 mg tablet 10 mg PO DAILY htn 05/23/22 07/09/22 clopidogrel 75 mg tablet (Plavix) 75 mg PO DAILY Blood thinner 05/23/22 07/09/22 nicotine 14 mg/24 hr daily 1 patch transdermal DAILY smoke 05/23/22 07/09/22 transdermal patch cessation Previous Rx's Medication Instructions Recorded ibuprofen 800 mg tablet 800 mg PO TID PRN pain #60 tabs 02/12/22 oxycodone-acetaminophen 5 mg-325 1 tab PO Q4H PRN post op pain #42 05/27/22 mg tablet (Percocet) tabs losartan 25 mg tablet See Rx Instructions .Route 08/23/22 .COMPLEX #90 tabs azithromycin 250 mg tablet 250 mg PO DIRECTED #6 tabs 08/31/22 benzonatate 100 mg capsule 100 mg PO BID PRN cough #14 caps 08/31/22 fluticasone propionate 50 1 spray intranasal DAILY #9.9 mL 08/31/22 mcg/actuation nasal spray,suspension Allergies Allergy/AdvReac Type Severity Reaction Status Date / Time Penicillins Allergy Unknown Verified 07/09/22 09:57 Worker's Comp Is this a Worker's Comp case?: No [facility] Disclaimer: The information contained in this section may have been updated after the patient was see
[2022-08-31 09:40] VITALS: BP 128/70; PULSE 73; RESP 19; TEMP 36.6; O2SAT 98
== END 2022-08-31 09:46 | disposition home or self-care (01) ==
PROVIDERS: Emergency Provider Nurse Practitioner Family; PCP Family Medicine
DX: J32.9 Chronic sinusitis, unspecified (principal)
CPT/HCPCS: 99212; 99213; G0463

== ENCOUNTER 2022-09-28 09:31 | Emergency (ER) | payer OTHER, SELFPAY ==
[2022-09-28 09:35] VITALS: BP 128/85; PULSE 71; RESP 12; TEMP 36.4; O2SAT 99; BMI 22.6
[2022-09-28 09:51] VITALS: BP 128/85; PULSE 71; RESP 12; TEMP 36.4; O2SAT 99
--- NOTE | 2022-09-28 09:51 | EXP.UTC ---
Discharge Plan Disposition Patient Disposition: Home, Self-Care Condition: Good Prescriptions Prescriptions: New azithromycin [azithromycin] 250 mg tablet 250 mg PO DIRECTED Qty: 6 0RF Rx Instructions: Take two (2) tablets on day #1, then one (1) tablet day #2 thru #5 benzonatate 100 mg capsule 100 mg PO BID PRN (Reason: cough) Qty: 10 0RF fluticasone propionate [fluticasone propionate] 50 mcg/actuation spray,suspension 1 spray intranasal DAILY Qty: 9.9 0RF No Action losartan 25 mg tablet 25 mg PO DAILY atorvastatin 40 mg tablet 40 mg PO DAILY clopidogrel [Plavix] 75 mg tablet 75 mg PO DAILY bisoprolol fumarate 10 mg tablet 10 mg PO DAILY Referrals Follow up/Referrals: Elijah Laws MD [Primary Care Provider] - See instructions Activity Restrictions/Add. Instructions Additional Instructions/Restrictions: Start antibiotic patient to take as ordered for a full length of time even if you feel better. Sinus infections do not get better overnight. It may take 2-3 days to notice much improvement so be sure to use conservative measures as discussed for symptoms. Flonase 1 spray each nostril daily to help with nasal congestion, sinus and ear pressure/information Increase fluids Humidifier/vaporizer as needed Tylenol and ibuprofen as needed for fever or pain. If symptoms do not improve or get worse return or be seen in the ER Follow-up with primary care this week Clinical Impressions Clinical Impression: Sinusitis Instructions Patient Instructions: DI for Sinusitis Discharge ED Provider: Fely ([facility])[place] [facility] [place] General Stated complaint: Cough drainage sore throat Mode of Arrival: Ambulatory Source of Information: Patient Limitations: No Limitations Time Seen by Provider: 09/28/22 09:51 Description of Symptoms (Recalled from Triage Doc. by RN): PATIENT C/O COUGH, RUNNY NOSE, AND SORE THROAT X 3 DAYS HEENT Symptoms (Recalled from RN notes): Yes Resp Symptoms (Recalled from RN notes): Yes Skin Symptoms (Recalled from RN notes): No MS Symptoms (Recalled from RN notes): No Functional Status (Recalled from RN notes): WNL History of Present Illness Provider Complaint: 57 yr old male presents for cough, runny nose,sinus tenderness, and sore throat for 3 days Related Data Home Medications Medication Instructions Recorded Confirmed atorvastatin 40 mg tablet 40 mg PO DAILY Cholesterol 05/23/22 09/28/22 bisoprolol fumarate 10 mg tablet 10 mg PO DAILY Hypertension 05/23/22 09/28/22 clopidogrel 75 mg tablet (Plavix) 75 mg PO DAILY Blood thinner 05/23/22 09/28/22 losartan 25 mg tablet 25 mg PO DAILY Hypertension 09/28/22 09/28/22 Previous Rx's Medication Instructions Recorded azithromycin 250 mg tablet 250 mg PO DIRECTED #6 tabs 09/28/22 benzonatate 100 mg capsule 100 mg PO BID PRN cough #10 caps 09/28/22 fluticasone propionate 50 1 spray intranasal DAILY #9.9 mL 09/28/22 mcg/actuation nasal spray,suspension Allergies Allergy/AdvReac Type Severity Reaction Status Date / Time Penicillins Allergy Unknown Verified 07/09/22 09:57 Worker's Comp Is this a Worker's Comp case?: No [facility] Disclaimer: The information contained in this section may have been updated after the patient was seen, as this information can be updated by other users. 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
== END 2022-09-28 10:00 | disposition home or self-care (01) ==
PROVIDERS: Emergency Provider Nurse Practitioner Family; PCP Family Medicine
DX: J32.9 Chronic sinusitis, unspecified (principal)
CPT/HCPCS: 99212; 99213; G0463

== ENCOUNTER 2022-10-13 08:24 | Emergency (ER) | payer OTHER, SELFPAY ==
[2022-10-13 08:35] VITALS: BP 108/62; PULSE 60; RESP 20; TEMP 36.5; O2SAT 100; BMI 22.0
[2022-10-13 08:50] VITALS: BP 108/62; PULSE 60; RESP 20; TEMP 36.5; O2SAT 100
[2022-10-13 08:53] LABS: UTC Strep Screen (Rapid) Negative (Negative)
--- NOTE | 2022-10-13 09:13 | EXP.UTC ---
Discharge Plan Disposition Patient Disposition: Home, Self-Care Condition: Good Prescriptions Prescriptions: New cephalexin [cephalexin] 500 mg tablet 500 mg PO BID 7 Days Qty: 14 0RF fluticasone propionate [fluticasone propionate] 50 mcg/actuation spray,suspension 1 spray intranasal DAILY Qty: 9.9 0RF No Action losartan 25 mg tablet 25 mg PO DAILY atorvastatin 40 mg tablet 40 mg PO DAILY clopidogrel [Plavix] 75 mg tablet 75 mg PO DAILY bisoprolol fumarate 10 mg tablet 10 mg PO DAILY Referrals Follow up/Referrals: Elijah Laws MD [Primary Care Provider] - See instructions Activity Restrictions/Add. Instructions Additional Instructions/Restrictions: Start antibiotic patient to take as ordered for a full length of time even if you feel better. Sinus infections do not get better overnight. It may take 2-3 days to notice much improvement so be sure to use conservative measures as discussed for symptoms. Flonase 1 spray each nostril daily to help with nasal congestion, sinus and ear pressure/information Increase fluids Humidifier/vaporizer as needed Tylenol and ibuprofen as needed for fever or pain. If symptoms do not improve or get worse return or be seen in the ER Follow-up with primary care this week Clinical Impressions Clinical Impression: Sinusitis Instructions Patient Instructions: DI for Sinusitis Discharge ED Provider: Fely ([facility])[place] [facility] [place] General Stated complaint: Cough, sore throat, congestion, drainage Mode of Arrival: Ambulatory Source of Information: Patient Limitations: No Limitations Time Seen by Provider: 10/13/22 09:13 Description of Symptoms (Recalled from Triage Doc. by RN): PATIENT C/O COUGH, SORE THROAT, AND CONGESTION X 1 WEEK HEENT Symptoms (Recalled from RN notes): Yes Resp Symptoms (Recalled from RN notes): Yes Skin Symptoms (Recalled from RN notes): No MS Symptoms (Recalled from RN notes): No Functional Status (Recalled from RN notes): WNL History of Present Illness Provider Complaint: 57yr old male presents for sinus pressure,sinus congestion, coughing up green sputum and sore throat x1 week Related Data Home Medications Medication Instructions Recorded Confirmed atorvastatin 40 mg tablet 40 mg PO DAILY Cholesterol 05/23/22 10/13/22 bisoprolol fumarate 10 mg tablet 10 mg PO DAILY Hypertension 05/23/22 10/13/22 clopidogrel 75 mg tablet (Plavix) 75 mg PO DAILY Blood thinner 05/23/22 10/13/22 losartan 25 mg tablet 25 mg PO DAILY Hypertension 09/28/22 10/13/22 Previous Rx's Medication Instructions Recorded cephalexin 500 mg tablet 500 mg PO BID 7 days #14 tabs 10/13/22 fluticasone propionate 50 1 spray intranasal DAILY #9.9 mL 10/13/22 mcg/actuation nasal spray,suspension Allergies Allergy/AdvReac Type Severity Reaction Status Date / Time Penicillins Allergy Unknown Verified 07/09/22 09:57 Worker's Comp Is this a Worker's Comp case?: No [facility] Disclaimer: The information contained in this section may have been updated after the patient was seen, as this information can be updated by other users. Medical History , [employer]) Chronic cough COPD (chronic obstructive pulmonary disease) Depression Encounter for pre-operative cardiovascular clearance Hyperlipidemia Hypertension Iron deficiency anemia Stenosis of carotid artery Surgical History , [employer]) History of coronary artery stent placement S/P arthroscopy of shoulder Family History , [employer]) Family history of cancer Family history of hypertension Family history of diabetes mellitus type II Social History , [employer]) Smoking Status: Current every day smoker tobacco type: cigarettes packs per day: 1 pack-years: 35 second hand exposure: No alcohol
== END 2022-10-13 09:30 | disposition home or self-care (01) ==
PROVIDERS: Emergency Provider Nurse Practitioner Family; PCP Family Medicine
DX: J01.90 Acute sinusitis, unspecified (principal); R05.1 Acute cough; F17.210 Nicotine dependence, cigarettes, uncomplicated
CPT/HCPCS: 87880; 99212; 99214; G0463

== ENCOUNTER 2022-10-31 09:45 | Emergency (ER) | payer OTHER, SELFPAY ==
[2022-10-31 09:50] VITALS: BP 154/103; PULSE 68; RESP 18; TEMP 36.4; O2SAT 100; BMI 21.8
[2022-10-31 10:10] LABS: UTC Strep Screen (Rapid) Negative (Negative)
[2022-10-31 10:11] VITALS: BP 142/88; PULSE 68; RESP 18; TEMP 36.4; O2SAT 100
--- NOTE | 2022-10-31 10:16 | EXP.UTC ---
Discharge Plan Disposition Patient Disposition: Home, Self-Care Condition: Good Prescriptions Prescriptions: No Action losartan 25 mg tablet 25 mg PO DAILY cephalexin [cephalexin] 500 mg tablet 500 mg PO BID 7 Days Qty: 14 0RF fluticasone propionate [fluticasone propionate] 50 mcg/actuation spray,suspension 1 spray intranasal DAILY Qty: 9.9 0RF atorvastatin 40 mg tablet 40 mg PO DAILY clopidogrel [Plavix] 75 mg tablet 75 mg PO DAILY bisoprolol fumarate 10 mg tablet 10 mg PO DAILY Referrals Follow up/Referrals: Elijah Laws MD [Primary Care Provider] - See instructions Activity Restrictions/Add. Instructions Additional Instructions/Restrictions: Follow up with your Family Doctor to have your blood pressure rechecked *Monitor Temp, Over the counter Motrin or Tylenol as directed/as needed Tylenol every 4 hours and Motrin every 6 hours (as long as your family doctor has told you that you can take it) for fever or pain. and straight to ER if unable to lower temp less than 101.0 after medication given *Warm salt water gargles may help to soothe the throat *Throat Lozenges? *Warm fluids like tea with honey may help to soothe the throat? *Sleep elevated *Humidifier/Vaporizer Your throat swab was sent for culture. Those results are typically sent to your primary care. Be sure to follow up in 2-3 days with your family doctor/primary care physician if no improvement so they can review those result and treat if necessary. If you don?t have a primary care doctor, I recommend you get one but in the mean time, you will have to return to a walk in clinic Follow up IMMEDIATELY for new or worsening symptoms or no Noticeable improvement over the next 48-72 hours. 911 for difficulty breathing or swallowing Clinical Impressions Clinical Impression: URI (upper respiratory infection) Instructions Patient Instructions: Sore Throat Discharge ED Provider: Amina Darling [facility] [place] H[place] General Stated complaint: possible strep Mode of Arrival: Ambulatory Source of Information: Patient Limitations: No Limitations Time Seen by Provider: 10/31/22 10:17 Description of Symptoms (Recalled from Triage Doc. 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 States that this morning he woke up with his throat hurting when he would swallow so he wanted to come in and get tested for strep throat Related Data Home Medications Medication Instructions Recorded Confirmed atorvastatin 40 mg tablet 40 mg PO DAILY Cholesterol 05/23/22 10/13/22 bisoprolol fumarate 10 mg tablet 10 mg PO DAILY Hypertension 05/23/22 10/13/22 clopidogrel 75 mg tablet (Plavix) 75 mg PO DAILY Blood thinner 05/23/22 10/13/22 losartan 25 mg tablet 25 mg PO DAILY Hypertension 09/28/22 10/13/22 Previous Rx's Medication Instructions Recorded cephalexin 500 mg tablet 500 mg PO BID 7 days #14 tabs 10/13/22 fluticasone propionate 50 1 spray intranasal DAILY #9.9 mL 10/13/22 mcg/actuation nasal spray,suspension Allergies Allergy/AdvReac Type Severity Reaction Status Date / Time Penicillins Allergy Unknown Verified 07/09/22 09:57 Worker's Comp Is this a Worker's Comp case?: No [facility] Disclaimer: The information contained in this section may have been updated after the patient was seen, as this information can be updated by other users. 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
== END 2022-10-31 10:24 | disposition home or self-care (01) ==
PROVIDERS: Emergency Provider Nurse Practitioner; PCP Family Medicine
DX: J06.9 Acute upper respiratory infection, unspecified (principal); J44.9 Chronic obstructive pulmonary disease, unspecified; I10 Essential (primary) hypertension; E78.5 Hyperlipidemia, unspecified; F17.210 Nicotine dependence, cigarettes, uncomplicated
CPT/HCPCS: 87880; 99212; 99213; G0463

== ENCOUNTER 2022-11-25 08:40 | Emergency (ER) | payer OTHER, SELFPAY ==
[2022-11-25 08:40] VITALS: BP 146/79; PULSE 61; RESP 17; TEMP 36.4; O2SAT 98; BMI 21.9
--- NOTE | 2022-11-25 09:03 | EXP.UTC ---
Discharge Plan Disposition Patient Disposition: Home, Self-Care Condition: Good Prescriptions Prescriptions: New promethazine-DM 6.25-15 mg/5 mL Syrup 5 ml PO Q6H PRN (Reason: Cough) Qty: 240 0RF azithromycin [Zithromax] 250 mg tablet 250 mg PO UD DOSE PK Qty: 6 0RF Rx Instructions: Take two (2) tablets today, then one (1) tablet days #2 thru #5 methylprednisolone 4 mg Tablets,Dose Pack 4 mg PO DIRECTED Qty: 21 0RF No Action losartan 25 mg tablet 25 mg PO DAILY cephalexin [cephalexin] 500 mg tablet 500 mg PO BID 7 Days Qty: 14 0RF fluticasone propionate [fluticasone propionate] 50 mcg/actuation spray,suspension 1 spray intranasal DAILY Qty: 9.9 0RF atorvastatin 40 mg tablet 40 mg PO DAILY clopidogrel [Plavix] 75 mg tablet 75 mg PO DAILY bisoprolol fumarate 10 mg tablet 10 mg PO DAILY Referrals Follow up/Referrals: Elijah Laws MD [Primary Care Provider] - See instructions Activity Restrictions/Add. Instructions Additional Instructions/Restrictions: Drink plenty of fluids. Take tylenol or ibuprofen for pain or fever. Take the medications as directed. Follow up with your regular doctor. GO TO THE ER FOR ANY WORSENING SYMPTOMS The cough medication (promethazine dm) will make you drowsy, so don't drive or operate heavy machinery after taking it. Clinical Impressions Clinical Impression: COPD exacerbation, Pharyngitis Stand Alone Forms Stand Alone Forms: Work/School Release Instructions Patient Instructions: Chronic Obstructive Pulmonary Disease, DI for Chronic Obstructive Pulmonary Disease, DI for Pharyngitis/Tonsillopharyngitis -- Adult Discharge ED Provider: Richard Roblero [facility] General Stated complaint: possible strep Time Seen by Provider: 11/25/22 09:03 History of Present Illness Provider Complaint: He states that for the past 2 days he has had body aches, chills, fever and malaise. He has a very sore throat. Related Data Home Medications Medication Instructions Recorded Confirmed atorvastatin 40 mg tablet 40 mg PO DAILY Cholesterol 05/23/22 10/13/22 bisoprolol fumarate 10 mg tablet 10 mg PO DAILY Hypertension 05/23/22 10/13/22 clopidogrel 75 mg tablet (Plavix) 75 mg PO DAILY Blood thinner 05/23/22 10/13/22 losartan 25 mg tablet 25 mg PO DAILY Hypertension 09/28/22 10/13/22 Previous Rx's Medication Instructions Recorded cephalexin 500 mg tablet 500 mg PO BID 7 days #14 tabs 10/13/22 fluticasone propionate 50 1 spray intranasal DAILY #9.9 mL 10/13/22 mcg/actuation nasal spray,suspension azithromycin 250 mg tablet 250 mg PO UD DOSE PK #6 tabs 11/25/22 (Zithromax) methylprednisolone 4 mg tablets in 4 mg PO DIRECTED #21 tabs 11/25/22 a dose pack promethazine-DM 6.25 mg-15 mg/5 mL 5 ml PO Q6H PRN Cough #240 mL 11/25/22 oral syrup Allergies Allergy/AdvReac Type Severity Reaction Status Date / Time Penicillins Allergy Unknown Verified 07/09/22 09:57 [facility] Disclaimer: The information contained in this section may have been updated after the patient was seen, as this information can be updated by other users. Medical History Chronic cough COPD (chronic obstructive pulmonary disease) Depression Encounter for pre-operative cardiovascular clearance Hyperlipidemia Hypertension Iron deficiency anemia Stenosis of carotid artery Surgical History History of coronary artery stent placement S/P arthroscopy of shoulder Family History Other Family history of cancer Family history of diabetes mellitus type II Family history of hypertension Social History Smoking Status: Current every day smoker tobacco type: cigarettes packs per day: 1 pack-years: 35 second hand exposure: No
[2022-11-25 09:14] LABS: UTC Strep Screen (Rapid) Negative (Negative)
[2022-11-25 09:42] VITALS: BP 146/82; PULSE 65; RESP 17; TEMP 36.4; O2SAT 98
== END 2022-11-25 09:44 | disposition home or self-care (01) ==
PROVIDERS: Emergency Provider Nurse Practitioner Family; PCP Family Medicine
DX: J44.1 Chronic obstructive pulmonary disease with (acute) exacerbation (principal); J02.9 Acute pharyngitis, unspecified; F17.210 Nicotine dependence, cigarettes, uncomplicated
CPT/HCPCS: 87880; 99212; 99214; G0463

== ENCOUNTER 2023-09-22 13:37 | Emergency (ER) | payer OTHER, SELFPAY ==
[2023-09-22 14:40] VITALS: BP 140/89; PULSE 89; RESP 19; TEMP 36.6; O2SAT 98; BMI 22.0
--- NOTE | 2023-09-22 14:53 | EXP.UTC ---
Discharge Plan Disposition Patient Disposition: Home, Self-Care Condition: Good Prescriptions Prescriptions: New azithromycin [Zithromax Z-Avinash] 250 mg tablet See Rx Instructions .ROUTE .COMPLEX 5 Days Qty: 6 0RF Rx Instructions: For 250 mg dose pack: take 500 mg today (day 1), then 250 mg for 4 days (days 2-5) No Action losartan 25 mg tablet 25 mg PO DAILY atorvastatin 40 mg tablet 40 mg PO DAILY clopidogrel [Plavix] 75 mg tablet 75 mg PO DAILY bisoprolol fumarate 10 mg tablet 10 mg PO DAILY azithromycin [Zithromax] 250 mg tablet 250 mg PO UD DOSE PK Qty: 6 0RF Rx Instructions: Take two (2) tablets today, then one (1) tablet days #2 thru #5 Referrals Follow up/Referrals: Elijah Laws MD [Primary Care Provider] - See instructions Activity Restrictions/Add. Instructions Additional Instructions/Restrictions: *Monitor Temp, Over the counter Motrin or Tylenol as directed/as needed Tylenol every 4 hours and Motrin every 6 hours (as long as your family doctor has told you that you can take it) for fever or pain. and straight to ER if unable to lower temp less than 101.0 after medication given *Warm salt water gargles may help to soothe the throat *Throat Lozenges? *Warm fluids like tea with honey may help to soothe the throat? *Sleep elevated *Humidifier/Vaporizer *Flonase 2 sprays in each nostril daily but be aware that it may take 2-3 days before you notice improvement *Bromfed may cause drowsiness. Know how it effects you (your child) before driving, caring for small child, or sending your child to school. Not other antihistamines/allergy medications while taking bromfed Your throat swab was sent for culture. Those results are typically sent to your primary care. Be sure to follow up in 2-3 days with your family doctor/primary care physician if no improvement so they can review those result and treat if necessary. If you don?t have a primary care doctor, I recommend you get one but in the mean time, you will have to return to a walk in clinic Follow up IMMEDIATELY for new or worsening symptoms or no Noticeable improvement over the next 48-72 hours. 911 for difficulty breathing or swallowing Clinical Impressions Clinical Impression: Sinusitis Stand Alone Forms Stand Alone Forms: Work/School Release Instructions Patient Instructions: Sore Throat, DI for Sinusitis Discharge ED Provider: Amina Darling [facility] HPI General Stated complaint: fever, congestion, sore throat Mode of Arrival: Ambulatory Source of Information: Patient Limitations: No Limitations Time Seen by Provider: 09/22/23 14:53 Description of Symptoms (Recalled from Triage Doc. by RN): PATIENT C/O FEVER, COUGH AND CONGESTION SINCE FRIDAY HEENT Symptoms (Recalled from RN notes): Yes Resp Symptoms (Recalled from RN notes): Yes Skin Symptoms (Recalled from RN notes): No MS Symptoms (Recalled from RN notes): No Functional Status (Recalled from RN notes): WNL History of Present Illness Provider Complaint: Patient states that he has been having sinus pain and pressure, felt like he may have had a fever on Friday, sore throat cough and congestion States today he was still not feeling any better so he came in to get checked Related Data Home Medications Medication Instructions Recorded Confirmed atorvastatin 40 mg tablet 40 mg PO DAILY Cholesterol 05/23/22 09/22/23 bisoprolol fumarate 10 mg tablet 10 mg PO DAILY Hypertension 05/23/22 09/22/23 clopidogrel 75 mg tablet (Plavix) 75 mg PO DAILY Blood thinner 05/23/22 09/22/23 losartan 25 mg tablet 25 mg PO DAILY Hypertension 09/28/22 09/22/23 Previous Rx's Medication Instructions Recorded azithromycin 250 mg tablet 250 mg PO UD DOSE PK #6 tabs 11/25/22 (Zithromax) azithromycin 250 mg tablet See Rx Instructions PO .COMPLEX 5 09/22/23 (Zithromax Z-Avinash) days #6 tabs Allergies Allergy/AdvReac Type Severity Reaction Status Date / Time Penicillins Allergy Unknown Verified 07/09/22 09:57 Worker's Comp Is this a Worker's Comp case?: No [facility] Disclaimer: The information contained in this section may have been updated after the patient was seen, as this information can be updated by other users. Medical History Chronic cough COPD (chronic obstructive pulmonary disease) Depression Encounter for pre-operative cardiovascular clearance Hyperlipidemia Hypertension Iron deficiency anemia Stenosis of carotid artery Surgical History History of coronary artery stent placement S/P arthroscopy of shoulder Family History Other Family history of cancer Family history of diabetes mellitus type II Family history of hypertension Social History Smoking Status: Current every day smoker tobacco type: cigarettes packs per day: 1 second hand exposure: No alcohol intake: never substance use type: denies use current occupational status: employed Travel in the last 8 weeks: None household members: family housing: house current occupation: [employer] current occupational exposures/hazards: No caffeine: Yes special bairon needs: No agree to transfusion: No do you feel safe at home: Yes victim of physical abuse: No victim of emotional abuse: No victim of sexual abuse: No would you like helpful sources: No ROS Obtained: Yes All systems reviewed & no additional complaints except as documented and Yes Systems reviewed as appropriate & no additional complaints except as documented Constitutional Constitutional: Reports system reviewed and no additional complaints, except as documented, Reports as per HPI, Reports body ache and Reports fever(s) ENT Ears, Nose, Mouth, and Throat: Reports system reviewed and no additional complaints, except as documented, Reports as per HPI, Reports sinus pain, Reports sinus pressure and Reports sore throat Cardiovascular Cardiovascular: Reports system reviewed and no additional complaints, except as documented and Reports as per HPI Respiratory Respiratory: Reports system reviewed and no additional complaints, except as documented and Reports as per HPI Gastrointestinal Gastrointestingal: Reports system reviewed and no additional complaints, except as documented and as per HPI Physical Exam General General appearance: alert and in no apparent distress ENT ENT exam: Present mucous membranes moist Expanded ENT Exam Nose exam: Present sinus tenderness Throat exam: Present other (Pharyngeal erythema noted with PND) Respiratory Respiratory exam: Present normal lung sounds bilaterally; Absent respiratory distress or wheezes Cardiovascular Cardiovascular exam: Present regular rate, normal rhythm and normal heart sounds Abdominal Exam Abdominal exam: Present soft and normal bowel sounds; Absent distention or tenderness Neurological Exam Neurological exam: Present alert, oriented X3 and normal gait Medical Decision Making Maynor Inquiry Pt receiving controlled substance: No Maynor was queried for this patient: No Vital Signs: 09/22/23 14:40 Temperature 97.9 F Temperature Source Oral Pulse Rate [Left Brachial] 89 Respiratory Rate 19 Blood Pressure [Left Arm] 140/89 Blood Pressure Mean [Left Arm] 106 Blood Pressure Source [Left Arm] Automatic Cuff Blood Pressure Position [Left Arm] Sitting 02 Sat by Pulse Oximetry 98 Oxygen Delivery Method Room Air Lab Data Lab results reviewed: Yes I reviewed the patient's lab results. Orders (Tests/Meds): ORDERS Category Date Time Status Covid-19 Nasal PCR ([facility]) Routine Lab 09/22/23 14:36 Received
[2023-09-22 15:09] LABS: UTC Influenza A Antigen Negative (Negative); UTC Influenza B Antigen Negative (Negative)
[2023-09-22 15:10] LABS: UTC Strep Screen (Rapid) Negative (Negative)
[2023-09-22 15:30] VITALS: BP 140/89; PULSE 89; RESP 19; TEMP 36.6; O2SAT 98
== END 2023-09-22 15:31 | disposition home or self-care (01) ==
PROVIDERS: Emergency Provider Nurse Practitioner; PCP Family Medicine
DX: J01.90 Acute sinusitis, unspecified (principal); R05.9 Cough, unspecified; R50.9 Fever, unspecified; R07.0 Pain in throat; F17.210 Nicotine dependence, cigarettes, uncomplicated; J44.9 Chronic obstructive pulmonary disease, unspecified; E78.5 Hyperlipidemia, unspecified; I10 Essential (primary) hypertension; I65.29 Occlusion and stenosis of unspecified carotid artery
CPT/HCPCS: 87635; 87804; 87880; 99212; 99214; G0463

== ENCOUNTER 2023-12-25 09:41 | Outpatient (CLI) | payer OTHER, SELFPAY ==
[2023-12-25 19:03] LABS: Basophils # 0.1 K/mm3 (0-0.2); Basophils % 0.8 % (0.1-2.0); Eosinophils # 0.3 K/mm3 (0.0-0.4); Hematocrit 49.8 % (42.0-52.0); Hemoglobin 15.6 g/dL (14.1-18.0); Lymphocytes # 1.5 K/mm3 (0.7-4.5); Lymphocytes % 24.3 % (10-50); Mean Corpuscular HGB Conc 31.4 g/dL (31.8-35.4); Mean Corpuscular Hemoglobin 30.1 pg (27.0-31.2); Mean Corpuscular Volume 96.1 fl (80-94); Mean Platelet Volume 8.9 fl (7.4-10.4); Monocytes # 0.4 K/mm3 (0.1-1.0); Neutrophils # 3.9 K/mm3 (1.8-7.8); Neutrophils % 62.8 % (37.0-80.0); Platelet Count 300 K/mm3 (142-424); Red Blood Count 5.18 M/mm3 (4.60-6.20); Red Cell Distribution Width 13.6 % (11.5-17.5); White Blood Count 6.2 K/mm3 (4.8-10.8)
[2023-12-25 19:46] LABS: 25-OH Vitamin D, Total 35.6 ng/mL (30-100)
[2023-12-25 19:48] LABS: Alanine Aminotransferase 16 U/L (12-78); Albumin Level 4.5 g/dl (3.5-5.0); Albumin/Globulin Ratio 1.3 (1.1-1.8); Alkaline Phosphatase 107 U/L (38-126); Anion Gap 16.3 mEq/L (5-15); Aspartate Amino Transferase 29 U/L (17-59); Bilirubin,Total 0.5 mg/dl (0.2-1.3); Blood Urea Nitrogen 12 mg/dl (9-20); Calcium 10.1 mg/dl (8.4-10.2); Carbon Dioxide 27 mmol/L (22.0-30.0); Chloride 102 mmol/L (98-107); Chol/HDL Ratio 4.3 (1-3.5); Cholesterol 172 mg/dl (140-200); Estimated Glomerular Filt Rate 77 ml/min (>60); GFR (African American) 94 ML/MIN (>60); Globulin 3.5 g/dL (1.3-3.2); Glucose 78 mg/dl (74-100); HDL Cholesterol 40 mg/dl (40-60); Potassium 4.3 mmoL/L (3.5-5.1); Sodium 141 mmol/L (136-145); Triglycerides 201 mg/dl (30-150); VLDL Cholesterol 40 mg/dL (0-40)
[2023-12-25 20:00] LABS: Direct LDL Cholesterol 103.67 mg/dL (100-129)
[2023-12-25 20:21] LABS: Prostate Specific Ag Screen 0.8 ng/ml (0.0-4.0); Thyroid Stimulating Hormone 0.88 uIU/mL (0.465-4.68)
== END 2023-12-25 23:59 | disposition home or self-care (01) ==
LOC: LAB.DROPOF 12-27 09:41
PROVIDERS: PCP Physician Assistant; Visit Provider Physician Assistant
DX: I25.118 Atherosclerotic heart disease of native coronary artery with other forms of angina pectoris (principal); E78.49 Other hyperlipidemia; Z79.899 Other long term (current) drug therapy
CPT/HCPCS: 80053; 80061; 82306; 84443; 85025; G0103

== ENCOUNTER 2024-01-22 09:10 | Outpatient (CLI) | payer OTHER, SELFPAY ==
--- NOTE | 2024-01-22 09:10 | CT_ITS ---
FINAL REPORT TECHNIQUE: Axial CT images of the chest were obtained without contrast. Low-dose protocol was utilized. This study was performed with techniques to keep radiation doses as low as reasonably achievable (ALARA). Individualized dose reduction techniques using automated exposure control or adjustment of mA and/or kV according to the patient's size were employed. CLINICAL HISTORY: lung cancer screening SMOKER, 1/2 PK A DAY X 40 YRS COPD COMPARISON: None FINDINGS: CT CHEST WITHOUT, LOW DOSE SCREENING CT Di Vol: 2.90 mGy DLP: 110.98 mGy*cm There is no axillary, mediastinal, or hilar adenopathy. The heart size is normal. There is no pleural or pericardial effusion. The lung windows show no suspicious mass or nodule. Limited images of the upper abdomen demonstrate no acute findings. IMPRESSION: LR Category 1: 12 month follow-up low-dose chest CT is recommended. Reviewed, Interpreted and Dictated by Curt Gonzalez MD Transcribed by Rachna Pedraza Authenticated and [facility]
[2024-01-22 10:00] VITALS: PULSE 76
[2024-01-22] MEDS: ALBUTEROL 0.083% 2.5 MG/3 ML NEB IH (10:00)
== END 2024-01-22 23:59 | disposition home or self-care (01) ==
LOC: RAD 09:10
PROVIDERS: PCP Physician Assistant; Visit Provider Physician Assistant
DX: J44.89 Other specified chronic obstructive pulmonary disease (principal); F17.210 Nicotine dependence, cigarettes, uncomplicated
CPT/HCPCS: 71271; 94060; 94640; 94726; 94729; J7613

== ENCOUNTER 2024-03-24 11:10 | Emergency (ER) | payer OTHER, SELFPAY ==
[2024-03-24 11:12] VITALS: BP 167/114; PULSE 105; RESP 13; TEMP 37; O2SAT 98; BMI 21.6
--- NOTE | 2024-03-24 11:22 | PC.NURSE ---
DR MÉNDEZ AT BEDSIDE
--- NOTE | 2024-03-24 11:25 | XR_ITS ---
FINAL REPORT CLINICAL HISTORY: nailbed injury, cut 5th digit right hand with mandolin slicer COMPARISON: None FINDINGS: RIGHT HAND Three views demonstrate no dislocation. The visualized joint spaces are normally aligned. There is marked soft tissue swelling in the distal half of the fifth finger, without evidence of fracture or foreign body. There may be a small ulceration at the distal tip of the fifth finger soft tissues. IMPRESSION: Marked soft tissue swelling distal half of the fifth finger, without evidence of fracture or foreign body. Reviewed, Interpreted and Dictated by Uvaldo Kahn MD Transcribed by Renetta Smart Authenticated and . [facility]
[2024-03-24 11:27] VITALS: BP 146/96
--- NOTE | 2024-03-24 11:27 | HMH.EDGENADL ---
Discharge Plan Disposition Patient Disposition: Home, Self-Care Prescriptions Prescriptions: No Action atorvastatin [Lipitor] 10 mg tablet 10 mg PO QHS Qty: 90 1RF clopidogrel 75 mg tablet 75 mg PO DAILY Qty: 90 1RF albuterol sulfate [Ventolin HFA] 90 mcg/actuation HFA aerosol inhaler 2 puff inhalation Q4-6H PRN (Reason: shortness of breath or wheezing) 30 Days Qty: 6.7 5RF Rx Instructions: administer with spacer Trelegy Ellipta 200-62.5-25 mcg blister with device 1 inh inhalation DAILY Qty: 30 5RF Referrals Follow up/Referrals: Cristy Cisneros PA [Primary Care Provider] - See instructions Activity Restrictions/Add. Instructions Additional Instructions/Restrictions: Take Tylenol and ibuprofen as needed for pain. Follow-up with primary care doctor. Please return to the emerged part with any new, concerning, worsening symptoms including but not limited to signs concerning for infection including redness, swelling, difficulty moving finger, pus. Recommend dressing changes at least twice daily. Continue to keep wound covered. Clinical Impressions Clinical Impression: Laceration of finger Qualifiers: Encounter type: initial encounter Finger: little finger Damage to nail status: with damage Foreign body presence: without foreign body Laterality: right Qualified Code(s): S61.316A - Laceration without foreign body of right little finger with damage to nail, initial encounter Print Language Print Language: Palauan Discharge ED Provider: Ventura Albert General Adult HPI General Chief complaint: Wound/Laceration Stated complaint: AO 03/24/24 @ 10:20, right pinky finger lac. Time Seen by Provider: 03/24/24 11:13 Mode of Arrival: Ambulatory Source of Information: Patient Limitations: No Limitations History of Present Illness HPI narrative: This is a 58-year-old male who presents with laceration to right pinky finger. States that he was using a mandolin saw at approximately 10:25 AM whenever he accidentally cut himself at the distal aspect of his right fifth digit. States that he took off a piece of his nail. He is unsure when last tetanus shot was. Denies any other injuries. Related Data Previous Rx's ?Medication ?Instructions ?Recorded atorvastatin 10 mg tablet (Lipitor) 10 mg PO QHS #90 tabs 12/25/23 clopidogrel 75 mg tablet 75 mg PO DAILY #90 tabs 12/25/23 albuterol sulfate 90 mcg/actuation 2 puff inhalation Q4-6H PRN 02/05/24 aerosol inhaler (Ventolin HFA) shortness of breath or wheezing 30 days #6.7 grams fluticasone fur. 200 mcg-umeclid 1 inh inhalation DAILY #30 ea 02/05/24 62.5 mcg-vilant 25 mcg inhalat.powder (Trelegy Ellipta) Allergies Allergy/AdvReac Type Severity Reaction Status Date / Time Penicillins Allergy Unknown Verified 12/25/23 09:09 [facility] Disclaimer: The information contained in this section may have been updated after the patient was seen, as this information can be updated by other users. Medical History (Updated 03/24/24 @ 13:24 by Ventura Albert MD) Depression Hyperlipidemia Hypertension Chronic cough COPD (chronic obstructive pulmonary disease) Stenosis of carotid artery Encounter for pre-operative cardiovascular clearance Iron deficiency anemia Surgical History (Updated 12/25/23 @ 11:59 by KEON Ayers) Status post shoulder surgery S/P arthroscopy of shoulder History of coronary artery stent placement Family History Other Family history of cancer Family history of diabetes mellitus type II Family history of hypertension Social History Smoking Status: Never smoker second hand exposure: No alcohol intake: never substance use type: denies use current occupational status: employed Travel in the last 8 weeks: None household members: family housing: house current occupation: [employer]
--- NOTE | 2024-03-24 11:55 | PC.NURSE ---
PT TO XR
[2024-03-24 13:32] VITALS: BP 141/94; PULSE 71; RESP 16; TEMP 36.7; O2SAT 100
== END 2024-03-24 13:33 | disposition home or self-care (01) ==
LOC: ER 11:15 → UTC 11:15 → ER 11:17
PROVIDERS: Emergency Provider Student in an Organized Health Care Education/Training Program; PCP Physician Assistant
DX: S61.316A Laceration without foreign body of right little finger with damage to nail, initial encounter (principal); W31.2XXA Contact with powered woodworking and forming machines, initial encounter
CPT/HCPCS: 73130; 99283

== ENCOUNTER 2024-09-28 07:49 | Outpatient (CLI) | payer BC, SELFPAY ==
[2024-09-28 08:41] LABS: Alanine Aminotransferase 18 U/L (12-78); Albumin Level 4.4 g/dl (3.5-5.0); Alkaline Phosphatase 78 U/L (38-126); Anion Gap 8.6 mEq/L (5-15); Aspartate Amino Transferase 25 U/L (17-59); Bilirubin,Direct 0.2 mg/dl (0.0-0.4); Bilirubin,Indirect 0.1 mg/dL (0.0-0.9); Bilirubin,Total 0.3 mg/dl (0.2-1.3); Bilirubin,Unconjugated 0.1 mg/dL (0.0-1.1); Blood Urea Nitrogen 17 mg/dl (9-20); Calcium 9.3 mg/dl (8.4-10.2); Carbon Dioxide 29 mmol/L (22.0-30.0); Chloride 106 mmol/L (98-107); Chol/HDL Ratio 3.4 (1-3.5); Cholesterol 138 mg/dl (140-200); Estimated Glomerular Filt Rate 100 ml/min (>60); GFR (African American) 121 ML/MIN (>60); Glucose 85 mg/dl (74-100); HDL Cholesterol 41 mg/dl (40-60); Magnesium 1.8 mg/dl (1.6-2.3); Potassium 4.6 mmoL/L (3.5-5.1); Sodium 139 mmol/L (136-145); Triglycerides 105 mg/dl (30-150); VLDL Cholesterol 21 mg/dL (0-40)
[2024-09-28 08:52] LABS: Direct LDL Cholesterol 77.44 mg/dL (100-129)
[2024-09-28 08:57] LABS: Free T4 (Free Thyroxine) 1.68 ng/dl (0.78-2.19)
[2024-09-28 09:11] LABS: Thyroid Stimulating Hormone 0.63 uIU/mL (0.465-4.68)
[2024-09-28 09:38] LABS: Basophils # 0.1 K/mm3 (0-0.2); Basophils % 0.8 % (0.1-2.0); Eosinophils # 0.3 K/mm3 (0.0-0.4); Hemoglobin 14.3 g/dL (14.1-18.0); Lymphocytes # 1.6 K/mm3 (0.7-4.5); Lymphocytes % 24.6 % (10-50); Mean Corpuscular HGB Conc 33.3 g/dL (31.8-35.4); Mean Corpuscular Hemoglobin 30.4 pg (27.0-31.2); Mean Corpuscular Volume 91.5 fl (80-94); Mean Platelet Volume 8.9 fl (7.4-10.4); Monocytes # 0.8 K/mm3 (0.1-1.0); Monocytes % 12.3 % (1.7-9.3); Neutrophils # 3.6 K/mm3 (1.8-7.8); Neutrophils % 57.1 % (37.0-80.0); Platelet Count 324 K/mm3 (142-424); Red Cell Distribution Width 11.9 % (11.5-17.5); White Blood Count 6.3 K/mm3 (4.8-10.8)
== END 2024-09-28 23:59 | disposition home or self-care (01) ==
LOC: LAB 07:51
PROVIDERS: PCP Family Medicine; Visit Provider Internal Medicine
DX: I11.9 Hypertensive heart disease without heart failure (principal); I25.118 Atherosclerotic heart disease of native coronary artery with other forms of angina pectoris; E78.49 Other hyperlipidemia; D50.9 Iron deficiency anemia, unspecified; I65.29 Occlusion and stenosis of unspecified carotid artery
CPT/HCPCS: 36415; 80048; 80061; 80076; 83735; 84439; 84443; 85025

== ENCOUNTER 2024-10-01 09:13 | Outpatient (CLI) | payer OTHER, SELFPAY ==
--- NOTE | 2024-10-01 09:15 | CA_ITS ---
APPROVED REPORT EXAM: Comprehensive 2D, Doppler, and color-flow Echocardiogram Diversity Manager: Debby Tabor, NARESH, RVS Ht: 5 ft 8 in Wt: 145lbs BSA: 1.78 BP: 144/96 mmHg Indications: CAD, CM, COPD, Smoker, HTN, HLD 2D Dimensions IVSd 0.80 cm LVEF (Visual) 31.90 % PWd 1.01 cm LA Volume 44.10 mL LVDd 5.25 cm LA Volume Index 24.602108 mL/m2 (M/F) 16-34 LVDs 4.45 cm EF AP4 41.00 % Left Atrium 2.41 cm GL Strain -11.5 % M-Mode Dimensions RVDd 2.21 cm (0.9-2.6) LA Diam 2.52 cm (1.9-4.0) LVDd 5.59 cm (3.5-5.7) LVDs 4.05 cm (3.5-5.7) IVSd 0.67 cm (0.6-1.1) PWd 0.77 cm (0.6-1.1) EF (Teich) 36.70% EPSs 1.28 cm FS 17.70% EDV (Teich) 113.90 mL TAPSE 2.02 (<1.7) ESV (Teich) 72.10 mL LV Diastology E Decel Time 160 (160-240 msec) E/A Ratio 1.01 MED A' 9.30 cm/s LAT A' 8.60 cm/s Aortic Valve AUDREY Index 1.07 cm2/m2 AoV Peak Zeferino. 121.0 (50-130 cm/s) AO Peak GR. 5.90 mmHg AO Mean GR. 3.10 (<5 mmHg) AO VTI 25.7 (18-25 cm) AUDREY (VTI) 1.95 (2.5-4.5 cm2) Mitral Valve MV A Velocity 59.0 (40-130 cm/s) E/A Ratio 1.01 MV Mean Gr. 1.20 (<2mmHg) Left Ventricle The left ventricle is normal size. The left ventricular systolic function is moderately reduced. There is increased LV wall thickness. Grade 1 diastolic dysfunction is present. There is moderate global hypokinesis present. He septum is asynchronous. LVEF is 35-40%. Right Ventricle The right ventricle is normal size. The right ventricular systolic function is normal. Atria The left atrium size is normal. The right atrium size is normal. There is no Doppler evidence of interatrial shunt. Aortic valve is mildly thickened. Aortic Valve There is no aortic valvular stenosis. No aortic regurgitation is present. Mitral Valve The mitral valve is normal in structure. No evidence of mitral valve stenosis. Mild mitral regurgitation. Tricuspid Valve Tricuspid valve is grossly normal in structure and function. Trace tricuspid regurgitation. There is insufficient TR jet to estimate RVSP. Pulmonic Valve Trace pulmonic regurgitation. Great Vessels The aortic root is normal in size. IVC is normal in size and collapses >50% with inspiration. Pericardium There is no pericardial effusion. Other Information Study Quality: Fair Conclusion Moderate reduction in LV systolic function (LVEF 35-40%). Septum is asynchronous. Mild MR. Electronically signed by : Susan Daugherty MD 10/11/2024 12:16:27
== END 2024-10-01 23:59 | disposition home or self-care (01) ==
LOC: RT 09:13
PROVIDERS: PCP Family Medicine; Visit Provider Internal Medicine
DX: I34.0 Nonrheumatic mitral (valve) insufficiency (principal); I25.118 Atherosclerotic heart disease of native coronary artery with other forms of angina pectoris; Z95.5 Presence of coronary angioplasty implant and graft
CPT/HCPCS: 93306

== ENCOUNTER 2024-10-08 07:18 | Day surgery (SDC) | payer OTHER, SELFPAY ==
[2024-10-08] VITALS (13 sets, daily range): BP systolic 133–155; BP diastolic 85–111; PULSE 70–91; RESP 14–187; TEMP 36.8; O2SAT 97–99; BMI 22.0
--- NOTE | 2024-10-08 07:06 | IR_ITS ---
APPROVED REPORT Patient Location: Outpatient Dry Wall Installations Mechanic: SARA Granados RT (R) PROCEDURES Left heart catheterization Left ventriculogram Selective coronary angiogram Intravascular ultrasound of the right coronary artery Drug-eluting stent deployment to the ostial proximal right coronary INDICATION Coronary artery disease, Angina pectoris, In-stent restenosis, Informed consent was obtained prior to the procedure. COMPLICATIONS NONE Estimated Blood Loss: LESS THAN 10 ML TECHNIQUE One percent lidocaine used to anesthetize the right anterior aspect of the wrist. The right radial artery was accessed via the Seldinger technique. A 6 Welsh sheath was placed in the right radial artery. 2.5 mg of Verapamil, 800 mcg of nitroglycerin, 1mg Lidocaine and 5000 U Heparin were given through the arterial sheath. The 6 Welsh JL 3 guide catheter catheter was also used to perform left heart catheterization, left ventriculogram and selective coronary angiogram. Upon injection of the right coronary artery there was severe dampening with contrast being retained requiring the catheter to be removed from the right coronary artery. At the end of the diagnostic angiogram therapeutic heparin was administered giving a therapeutic ACT and the guide catheter was placed in right coronary followed by Choice PT extra-support wire. Intravascular sound probe was advanced which demonstrated in-stent restenosis in the ostial proximal segment giving an MLA of 3.7 mm???. Because of this a JR4 catheter was used to intubate the right coronary artery followed by a Choice PT extra-support wire. A 3.5 x 15 mm Carson frontier stent was deployed at 16 kamryn reducing the stenosis. The balloon was brought back into the ostium and deployed at 18 kamryn to further post dilate. The intravascular ultrasound probe was then reinserted which demonstrated excellent stent expansion and stent apposition to the ostium. ARABELLA-3 flow was present before and after the procedure. At the end the procedure the apparatus was removed the sheath was removed and hemostasis was achieved using TR banding patient was transferred to the postop putting in stable condition. ANGIOGRAPHIC RESULTS The left main artery Is a small caliber vessel free of macrovascular disease The left anterior descending artery Is a small caliber vessel free of macrovascular disease The circumflex artery Nondominant is a small caliber vessel free of macrovascular disease The right coronary artery Has a stent in the ostial proximal segment which has angiographic haziness which proved to be a severe in-stent restenotic lesion with the rest of the vessel widely patent The GUNN ventriculogram reveals Normal 65% The left ventricular end-diastolic pressure 10 mmHg IMPRESSION Severe in-stent restenosis in the ostial proximal right coronary artery as described above Successful stenting the ostial proximal right coronary severe disease reduced to 0% with 1 drug-eluting stent Angiographically small caliber left main LAD and circumflex arteries as described above Normal ejection fraction Normal LVEDP PLAN 1. Dual antiplatelet therapy 2. Cardiac rehabilitation 3. Avoidance of tobacco products 4. Risk factor modification 5. LDL less than 55 to achieve that high intensity statin Electronically signed by : Jona Reddy MD 10/08/2024 09:00:26
[2024-10-08 07:48] LABS: Basophils # 0.1 K/mm3 (0-0.2); Basophils % 0.9 % (0.1-2.0); Eosinophils # 0.3 K/mm3 (0.0-0.4); Hematocrit 41.1 % (42.0-52.0); Lymphocytes # 1.4 K/mm3 (0.7-4.5); Lymphocytes % 23.7 % (10-50); Mean Corpuscular HGB Conc 34.1 g/dL (31.8-35.4); Mean Corpuscular Hemoglobin 30.6 pg (27.0-31.2); Mean Corpuscular Volume 89.7 fl (80-94); Mean Platelet Volume 8.5 fl (7.4-10.4); Monocytes # 0.7 K/mm3 (0.1-1.0); Monocytes % 12.3 % (1.7-9.3); Neutrophils # 3.4 K/mm3 (1.8-7.8); Neutrophils % 57.8 % (37.0-80.0); Platelet Count 288 K/mm3 (142-424); Red Blood Count 4.58 M/mm3 (4.60-6.20); Red Cell Distribution Width 11.8 % (11.5-17.5); White Blood Count 5.8 K/mm3 (4.8-10.8)
[2024-10-08] MEDS: LIDOCAINE 1% 10ML MDV 20 ML IJ (08:09)
[2024-10-08] MEDS: VERAPAMIL 2.5MG/ML 2ML VIAL 2.5 MG IV (08:09)
[2024-10-08] MEDS: HEPARIN 1,000 UNITS/ML 10ML VIAL (CATH LAB) 10000 UNIT IV (08:09)
[2024-10-08] MEDS: HEPARIN 1,000 UNITS/500ML NS (CATH LAB) 3000 UNIT IV (08:10)
[2024-10-08] MEDS: diphenhydrAMINE 50MG/ML VIAL 50 MG IV (08:10)
[2024-10-08] MEDS: 0.9 % SODIUM CHLORIDE 500 ML 25 ML IV (08:10)
[2024-10-08] MEDS: NITROGLYCERIN 800MCG/8ML SYR (CATH LAB) 800 MCG IA (08:10)
[2024-10-08 08:16] LABS: Anion Gap 9.1 mEq/L (5-15); Blood Urea Nitrogen 14 mg/dl (9-20); Calcium 9.2 mg/dl (8.4-10.2); Carbon Dioxide 28 mmol/L (22.0-30.0); Chloride 107 mmol/L (98-107); Creatinine Clearance Estimated 84 mL/min (50-200); Estimated Glomerular Filt Rate 87 ml/min (>60); GFR (African American) 105 ML/MIN (>60); Glucose 95 mg/dl (74-100); Potassium 4.1 mmoL/L (3.5-5.1); Sodium 140 mmol/L (136-145)
[2024-10-08] MEDS: FENTANYL 100MCG/2ML VIAL 50 MCG IV (08:35)
[2024-10-08] MEDS: MIDAZOLAM HCL 1MG/ML 5ML VIAL 1 MG IV (08:38)
[2024-10-08] MEDS: PRASUGREL 10MG TAB 60 MG PO (09:00)
[2024-10-08] MEDS: IOPAMIDOL-370 (76%);100ML BOTTLE 75 ML IV (11:25)
[2024-10-08 11:33] LABS: CATHL Activated Clotting Time > 400 SEC (74-125)
== END 2024-10-08 12:17 | disposition home or self-care (01) ==
PROVIDERS: PCP Family Medicine; Visit Provider Internal Medicine
DX: I25.118 Atherosclerotic heart disease of native coronary artery with other forms of angina pectoris (principal); T82.855A Stenosis of coronary artery stent, initial encounter; Z95.5 Presence of coronary angioplasty implant and graft; D50.9 Iron deficiency anemia, unspecified; I10 Essential (primary) hypertension; E78.5 Hyperlipidemia, unspecified; I65.23 Occlusion and stenosis of bilateral carotid arteries; F17.210 Nicotine dependence, cigarettes, uncomplicated; J44.9 Chronic obstructive pulmonary disease, unspecified; Z88.0 Allergy status to penicillin; Z79.899 Other long term (current) drug therapy
CPT/HCPCS: 80048; 85025; 85347; 92928; 92978; 93458; 99152; 99153; C1725; C1769; C1874; C9600; J1200; J1644; J3010; Q9967

== ENCOUNTER 2024-10-18 13:40 | Outpatient (RCR) | payer OTHER, SELFPAY | END 2025-01-25 15:00 | disposition home or self-care (01) | LOC: CR 13:40 | PROVIDERS: Visit Provider Family Medicine | DX: I25.118 Atherosclerotic heart disease of native coronary artery with other forms of angina pectoris (principal); I65.29 Occlusion and stenosis of unspecified carotid artery | CPT/HCPCS: 93798 ==

== ENCOUNTER 2025-02-07 08:38 | Outpatient (CLI) | payer OTHER, SELFPAY ==
--- OUTSIDE RECORDS SUMMARY | 2025-01-10 07:28 | XMS_ITS | Continuity of Care Document ---
Author Organization [facility] Address [address] [place] [address]. [address] [place] [address] Phone Care Team Providers Care Engine Emission Technician Name Role Phone Kasey NICHOLE FACP FCCPJuan Carlos Unavailable Unavail able Allergies, Adverse Reactions, Alerts Substance Reaction Status Criticality Penicillins Active No Information Medications Medication Instructions Dosage Effective Dates (start - stop) Status Comments Trelegy Ellipta 100 mcg-62.5 mcg-25 mcg powder for inhalation inhale 1 puff by inhalation route every day at the same time each day 1.00 puff - Active MONTELUKAST SOD 10 MG TABLET TAKE 1 TABLET BY MOUTH EVERY DAY IN THE EVENING - Active albuterol sulfate HFA 90 mcg/actuation aerosol inhaler inhale 2 puff by inhalation route every 4 - 6 hours as needed 2 puff - Active LORATADINE 10 MG TABLET TAKE 1 TABLET BY MOUTH EVERY DAY - Active Flonase Allergy Relief 50 mcg/actuation nasal spray,suspension spray 1 - 2 spray by intranasal route every day in each nostril as needed 50-100 MCG - Active SYNTHROID (unknown strength) take 1 tablet by oral route every day Not Available - Active Procedures Procedure Date Pain Severity Quantified No Pain Present Medication List Documented In MR 2024 Rev Of Meds By Prescribing Practitioner Or Pharmac Functional Status Assessed COA Body Mass Index Documented Offic/outpt E&m Estab Mod-hi Pain Severity Quantified No Pain Present Medication List Documented In MR 2024 Rev Of Meds By Prescribing Practitioner Or Pharmac Functional Status Assessed COA 25 Body Mass Index Documented Offic/outpt E&m Estab Mod-hi Offic/outpt E&m Estab Mod-hi Offic/outpt E&m Estab Mod-hi Prof Immunotx Wo Extract; 2/> 1 LUNG FUNCTION TEST (MBC/MVV) Prof Immunotx Wo Extract; 2/> 1 LUNG FUNCTION TEST (MBC/MVV) Prof Immunotx Wo Extract; 2/> 1 LUNG FUNCTION TEST (MBC/MVV) Prof Immunotx Wo Extract; 2/> 1 LUNG FUNCTION TEST (MBC/MVV) Prof Immunotx Wo Extract; 2/> 1 LUNG FUNCTION TEST (MBC/MVV) Prof Immunotx Wo Extract; 2/> 1 LUNG FUNCTION TEST (MBC/MVV) Prof Immunotx Wo Extract; 2/> 1 LUNG FUNCTION TEST (MBC/MVV) Prof Immunotx Wo Extract; 2/> 1 LUNG FUNCTION TEST (MBC/MVV) Prof Immunotx Wo Extract; 2/> 1 LUNG FUNCTION TEST (MBC/MVV) Prof Immunotx Wo Extract; 2/> 1 LUNG FUNCTION TEST (MBC/MVV) Prof Immunotx Wo Extract; 2/> 1 LUNG FUNCTION TEST (MBC/MVV) Prof Immunotx Wo Extract; 2/> 1 LUNG FUNCTION TEST (MBC/MVV) Prof Immunotx Wo Extract; 2/> 1 LUNG FUNCTION TEST (MBC/MVV) Prof Immunotx Wo Extract; 2/> 1 LUNG FUNCTION TEST (MBC/MVV) Prof Immunotx Wo Extract; 2/> 1 LUNG FUNCTION TEST (MBC/MVV) Prof Immunotx Wo Extract; 2/> 1 LUNG FUNCTION TEST (MBC/MVV) Prof Immunotx Wo Extract; 2/> 1 LUNG FUNCTION TEST (MBC/MVV) Prof Immunotx Wo Extract; 2/> 1 LUNG FUNCTION TEST (MBC/MVV) Prof Immunotx Wo Extract; 2/> 1 LUNG FUNCTION TEST (MBC/MVV) Prof Immunotx Wo Extract; 2/> 1 LUNG FUNCTION TEST (MBC/MVV) Prof Immunotx Wo Extract; 2/> 0 LUNG FUNCTION TEST (MBC/MVV) Prof Immunotx Wo Extract; 2/> 0 LUNG FUNCTION TEST (MBC/MVV) Prof Immunotx Wo Extract; 2/> 0 LUNG FUNCTION TEST (MBC/MVV) Prof Immunotx Wo Extract; 2/> 0 LUNG FUNCTION TEST (MBC/MVV) Prof Immunotx Wo Extract; 2/> 0 LUNG FUNCTION TEST (MBC/MVV) Prof Immunotx Wo Extract; 2/> 0 LUNG FUNCTION TEST (MBC/MVV) Offic/outpt E&m Estab Mod-hi Perq W/allerg Extract-spec # T 20 Offic/outpt E&m Estab Minor Perq W/allerg Extract-spec # T 19 Noninvas Oximetry-o2 Sat; 1 De 19 Bronchospsm Eval: Blas-bronch 19 Respiratory Flow Volum Loop Offic/outpt E&m New Mod-hi Aerosol/vapor Inhala; 1st Demo Dec-10-20 19 Advance Directives Directive Yes / No Effective Date File Name No Information Encounters Encounter Description Practice Location Reason(s) For Visit Diagnoses Date Provider Providers Copied on Encounter [facility], [address], [place], [place], [id number], tel:[phone] [facility] No Information 5 [facility]y [facility] Juan Carlos. [address], [address], [place], [place], [address] , [place]. tel:[phone] Referring Provider: Juan aCrlos Parks MD, FACP [facility], [address], [place], [address] . tel:[phone] Offic/outpt E&m Estab [facility], [address], [place], [place], [id number], tel:[phone] [facility] Pt states he is here for a f/u (chief complaint) Hypothyroidism, unspecified typeMild persistent asthma with acute exacerbationAllergi c rhinitis, unspecified seasonality, unspecified trigger 5 Kasey [facility] Juan Carlos. [address], [address], [place], [place], [id number] , [place]. tel:[phone] Referring Provider: Juan Carlos [facility], [address], [place], [address] . tel:[phone] [facility], [address], [place], [place], [address], [place] tel:[phone] [facility] No Information 5 Ho NICHOLE [facility] Ishmael. [address], [address], [place], [address], [place]. tel:[phone] Offic/outpt E&m Estab [facility], [address], [place], [place], [address], [place] tel:[phone] [facility] Pt wants to discuss Biologics for Asthma (chief complaint) Mild persistent asthma with acute exacerbationAllergi c rhinitis, unspecified seasonality, unspecified triggerHypothyroidi sm, unspecified type Sep- 5 Kasey [facility] Juan Carlos. [address], [address], [place], [place], [address] , [place]. tel:[phone] Referring Provider: Juan Carlos Parks MD, FACP [facility], [address], [place], [address] . tel:[phone] [facility], [address], [place], [place], [address], tel:[phone] [facility] No Information 5 Kasey NICHOLE FACP [facility] Juan Carlos. [address], [address], [place], [place], [address] , [place]. [phone] [facility], [address], [place], [place], [address], [place] tel:[phone] [facility] No Information 4 Kasey NICHOLE FACP [facility] Juan Carlos. [address], [address], [place], [place], [address] , [place]. tel:[phone] Offic/outpt E&m Estab Mod-hi [facility], [address], [place], [place], [address], [place] tel:[phone] [facility] Consult (chief complaint) Allergy, subsequent encounterMild persistent asthma with acute exacerbationAllergi c rhinitis, unspecified seasonality, unspecified trigger 3 Ho NICHOLE [facility] Ishmael. [address], [address], [place], [address], [place]. tel:[phone] Referring Provider: Ishmael Teague MD, FACP, [address], [place], [address]. tel:[phone] [facility], [address], [place], [place], [id number], [place] tel:[phone] [facility] No Information 2 Kasey [facility]ICHOLE FACP [facility]. [address], [address], [place], [place], [address] , [place]. [phone] Referring Provider: Juan Carlos VEGA, [address], [place], [address] . tel:[phone] Offic/outpt E&m Estab Mod-hi [facility], [address], [place], [place], [address], [place] tel:[phone] [facility] follow up (chief complaint) Allergic rhinitis, unspecified seasonality, unspecified triggerMild persistent asthma with acute exacerbationAllergy , subsequent encounter 2 Kasey NICHOLE FACP [facility]. [address], [address], [place], [place], [address] , [place]. tel:[phone] Referring Provider: Juan Carlos VEGA, [address], [place], [address] . tel:[phone] [facility], [address], [place], [place], [address], [place] tel:[phone] [facility] No Information 1 Kasey Rangel. [address], [address], [place], [place], [address] , [place]. [phone] Referring Provider: Juan Carlos SHANEP, [address], [place], [address] . tel:[phone] [facility], [address], [place], [place], [address], [place] tel:[phone] [facility] No Information 1 Kasey Rangel. [address], [address], [place], [place], [address] , [place]. tel:[phone] Referring Provider: Juan Carlos SHANEP, [address], [place], [address] . tel:[phone] [facility], [address], [place], [place], [address], [place] tel:[phone] [facility] No Information 1 Kasey SHANEP Juan Carlos. [address], [address], [place], [place], [address] , [place]. tel:[phone] Referring Provider: Juan Carlos SHANEP, [address], [place], [address] . tel:[phone] [facility], [address], [place], [place], [address], [place] tel:[phone] [facility] No Information 0 Kasey Rangel. [address], [address], [place], [place], [address] , [place]. tel:[phone] Referring Provider: Juan Carlos SHANEP, [address], [place], [address] . tel:[phone] Offic/outpt E&m Estab Mod-hi [facility], [address], [place], [place], [address], [place] tel:[phone] [facility] Allergy retest before getting antgens made (chief complaint) Allergic rhinitis, unspecified seasonality, unspecified triggerMild persistent asthma with acute exacerbation 0 Kasey NICHOLE FACP [facility]. [address], [address], [place], [place], [address] , [place]. tel:[phone] Referring Provider: Juan Carlos VEGA, [address], [place], [address] . tel:[phone] Offic/outpt E&m [facility], [address], [place], [place], [address], [place] tel:[phone] [facility] Allergy Test (chief complaint) Allergic rhinitis, unspecified seasonality, unspecified triggerMild persistent asthma with acute exacerbationAllergy , unspecified, initial encounter 9 Kasey Rangel. [address], [address], [place], [place], [address] , [place]. tel:[phone] Referring Provider: Juan Carlos VEGA, [address], [place], [address] . tel:[phone] Offic/outpt E&m [facility], [address], [place], [place], [address], [place] tel:[phone] [facility] allergies x long time (chief complaint) Mild persistent asthma with acute exacerbationAllergi c rhinitis, unspecified seasonality, unspecified trigger 9 Kasey Rangel. [address], [address], [place], [place], [address] , [place]. tel:[phone] Referring Provider: Juan Carlos Parks MD [facility], [address] [facility] [address], [place], [address] . tel:[phone] Family History Family Member Type Diagnosis Age At Onset Father Problem (finding) Atherosclerosis Payers Payer name Insurance type Covered libertarian ID Esteban hurtado(s) [employer] [place] PPO BL [id number] Social History Type Description Quantity Date Captured Comments Alcohol Use Details Unknown Caffeine Use Details Unknown Tobacco Use Status No Information Smoking Status No Information Sex Male Sexual Orientation Choose not to disclose Gender Identity Male Chief Complaint And Reason For Visit No Information Reason For Referral Reason For Referral No Information Plan Of Treatment Date Type Action Status Goal Td vaccine. Due on due Goal Colonoscopy. Due on due Goal Zoster vaccine ( ). Due on due Goal Tdap. Due on due Goal H&P. Due on due Goal Influenza vaccin e. Due on due Goal Lipid Panel. Due on due Goal FIT. Due on due Goal Depression scree renzo. Due on due Goal Unhealthy drug u se screening. Due on due Goal H&P. Due on due Goal Lipid Panel. Due on due Goal Zoster vaccine ( ). Due on due Goal Colonoscopy. Due on due Goal FIT. Due on due Goal Unhealthy drug u se screening. Due on due Goal Zoster vaccine ( 1st). Due on due Goal Unhealthy drug u se screening. Due on due Goal Hepatitis C scre ening. Due on due Goal FIT-DNA. Due on due Goal FIT. Due on due Goal CT-Colonography. Due on due Goal FOBT. Due on due Goal H&P. Due on due Goal Lipid Panel. Due on due Goal Colonoscopy. Due on due Goal H&P. Due on due Goal Colonoscopy. Due on due Goal FOBT. Due on due Goal Lipid Panel. Due on due Goal Lipid Panel. Due on due Goal H&P. Due on due Goal FOBT. Due on due Goal Colonoscopy. Due on due Goal Colonoscopy. Due on due Goal Lipid Panel. Due on due Goal H&P. Due on due Goal FOBT. Due on due Future Order: Radiology Order XR Chest 2 Views ([id number]), Added on: New History Of Present Illness Encounter Date Complaint History Of Prese nt Illness Pt states he is here for a f/u P ULMONARY F/U59 y/o male presents for 1 month F/U for asthmaSince last visit, pt states noticed a positive difference in sxs. Went from using albuterol inhaler 3x/day to 1x/day. States has much less SOB. Still using Flonase and loratadine for stuffy nose. Pt declines increasing dose of Trelegy inhaler today since picked up 30 day supply on 11/08/2024. Denies cough, wheezing, CP, night awakening. Pt clarified he already d/c Breyna inhalerPrevious visit note on 10/20/2024:PULMONARY F/U59 y/o male presents for asthma F/U, requesting biologic Rx.Pt states he uses albuterol inhaler daily. Pt admits to only taking Breyna inhaler 4-5 days/week b/c forgets. Reports occasional SOB every couple weeks. Pt also reports stuffy nose, which he takes Flonase nasal spray. Denies cough, wheezing, CP, night awakening. Pt also takes montelukast 10mg QHS. Pt is open to switching to Trelegy inhaler. Declines vaccines. Has not smoked since 2010. Pt wants to discuss Biologics for Asthma PULMONARY F/U59 y/o male presents for asthma F/U, requesting biologic Rx.Pt states he uses albuterol inhaler daily. Pt admits to only taking Breyna inhaler 4-5 days/week b/c forgets. Reports occasional SOB every couple weeks. Pt also reports stuffy nose, which he takes Flonase nasal spray. Denies cough, wheezing, CP, night awakening. Pt also takes montelukast 10mg QHS. Pt is open to switching to Trelegy inhaler. Declines vaccines. Has not smoked since 2010. Consult 57 y.o. male jag patel is here for a consult.Patient mentions that 3 weeks ago when he was in [place] cleaning his garage he noticed that over the weekend he started getting stuffy nose. He took sudafed which he normally does when he get symptoms like this.He thought that it was going away last but it came back again over the weekend.Patient states that he got antibiotics from [facility] clinic. He is taking doxycycline since Friday. He is also using symbicort twice a day when he needs it.Patient wants to know if this is some chronic sinus infection that he is having.His symptoms include runny nose, congested head, cannot breathe in his nose when he sleeps at night and sneezing.Patient does not recall having fever. Denies cough as well, but mentions that he feels like spitting out but does not feel like it is coming from deep his throat but more like the upper throat.Patient mentions he is taking medication for his thyroid, high cholesterol and hypertension.Hx:Pneumonia as a child. Covid onceSmoking hx 21yo-42yo, pack a week follow up 56 y/o male with a h/o asthma, allergic rhinitis, and allergy c/o rhinorrhea and nasal congestion x 2 weeks. He completed Zpak and steroids that were prescribed by an online doctor 2 weeks ago with some improvement. Been using Zyrtec and Flonase with improvement in sxs. No sick contacts. Got a new puppy x 2.5 months. Uses albuterol and symbicort inhalers and singulair for his asthma. Been using the albuterol inhaler more often lately, 1-2x/day. Denies fever, chills, fatigue, headaches, chest pain, SOB, cough, wheezing, sore throat, otalgia, myalgias, n/v/d/c, loss sense of taste or smell. Had allergy shots in the past. Allergy retest befor e getting antgens made since pt had numerous reactions on previous testing in 06/2019 Allergy Test allergies x long time Pt presets complainig of allergies that have been flaring up. Pt states he has a history of asthma and allergies in the past. Pt had allergy shots at age 13 and again at age 47. Pt uses inhalers to control his asthma and he states his asthma has been well cotrolled. When in [place] he uses the inhaler a lot more and when he comes back he feels that he gets back to normal after a couple weeks . When he is in [place] it is aggravated and he thinks that it is affiliated with [place] Flies that are in [place]. When he went last year these flies were not there and he did not have a reaction.Pt admits to wheezing but denies CP, n/v/d/c. Pt has not had a CXR. Functional Status Date Functional Assessmen t No Information Instructions Date Instruction Additional Infor ricardo Continue Flonase and loratadine Related to Allergic rhinitis, unspecified seasonality, unspecified trigger Continue Trelegy 100 mcg/62.5 mcg/25 mcg 1 puff QD. Use maintenance inhaler daily and rescue inhaler prn.F/U in 1 mo. If still using rescue inhaler 1x/day, will consider increasing dose of Trelegy inhaler Related to Mild persistent asthma with acute exacerbation F/U w/ PCP Related to Hypot hyroidism, unspecified type D/C BreynaTrial of T relegy 100 mcg/62.5 mcg/25 mcg 1 puff QD. 2 samples provided. Lot #[id number], Exp 01/2026Use maintenance inhaler daily and rescue inhaler prn.F/U in 1 mo Related to Mild persistent asthma with acute exacerbation F/U w/ PCP Related to Hypot hyroidism, unspecified type Continue current Rx Related to A llergic rhinitis, unspecified seasonality, unspecified trigger Continue flonaseAvoi d exposure to antigens and allergens Related to Allergic rhinitis, unspecified seasonality, unspecified trigger Advised patient to m onitor his symptoms for 7 days.Continue symbicort 2x a dayAlbuterol PRNWill prescribe short course of steroids prednisone 40 mgTo consider lung cancer screeningf/u in 1 week(Visit was done in the office. Patient was seen by Dr. Ishmael Teague in the presence of a scribe. Visit was scribed and documented by Mally Parks following HIPAA rules and regulations.) Related to Mild persistent asthma with acute exacerbation Trial of loratadine 10 mg daily.Take Rx as prescribed. Rx S/E discussed. RTC in 2 weeks and F/U with Dr. Parks to discuss allergies if no improvement. Related to Allergy, subsequent encounter Acute exacerbation l ikely d/t allergies. Symbicort and albuterol inhalers refilled. Related to Mild persistent asthma with acute exacerbation Continue flonase. Related to All ergic rhinitis, unspecified seasonality, unspecified trigger AT see results pt co nsents for SIT Environmental control: Adequate avoidance of offending allergens is essential. Any compromise with environmental controls could seriously jeopardize success with any other treatments including pharmacotherapy or immunotherapy.Medications: Nasal steroidszyrtec for itching sneezingVaccine Immunotherapy: Allergy desensitization based on unavoidability of offending allergans, failure of conventional pharmacotherapy and persistent symptoms interfering with quality of life. Related to Allergic rhinitis, unspecified seasonality, unspecified trigger continue present Rx Related to M ild persistent asthma with acute exacerbation AT striking reaction s to trees , grasses and weeds Environmental control: Adequate avoidance of offending allergens is essential. Any compromise with environmental controls could seriously jeopardize success with any other treatments including pharmacotherapy or immunotherapy.Medications: Nasal steroidssymbicort SIT , pt is in middle of changing InsurancesVaccine Immunotherapy: Allergy desensitization based on unavoidability of offending allergans, failure of conventional pharmacotherapy and persistent symptoms interfering with quality of life. Related to Allergic rhinitis, unspecified seasonality, unspecified trigger PFTs mild obstructio n , no restrictionCXRAllergy testing scheduledSymbicort trial , sampled Related to Mild persistent asthma with acute exacerbation Assessments Type Assessment Date No Information Patient Care Teams Name Effective Dates (start - stop) Status Members No Information
--- NOTE | 2025-02-07 08:45 | CA_ITS ---
APPROVED REPORT EXAM: Limited 2D Echocardiogram Vulcanizer: RT Susu(R) Ht: 5 ft 8 in Wt: 145lbs BSA: 1.78 BP: 144/96 mmHg Indications: ordered as a limited echo to reassess EF, EF 35-40% 10/01/24, CAD, smoker. 2D Dimensions LVEF (Flores's) 36.30 % M: 52 - 72 LV Volume 81.60 mL M: 62 - 150 LV Volume Index 45.8 mL/m2 M: 34 - 74 EF AP4 30.90 % EF AP2 36.1 % EF BP 36.3 % GL Strain -17.6 % M-Mode Dimensions RVDd 2.06 cm (0.9-2.6) LVDd 5.20 cm (3.5-5.7) LVDs 4.36 cm (3.5-5.7) IVSd 0.53 cm (0.6-1.1) PWd 0.56 cm (0.6-1.1) EF (Teich) 33.70% FS 16.20% EDV (Teich) 129.50 mL ESV (Teich) 85.80 mL LV Diastology E Decel Time 175 (160-240 msec) E/A Ratio 0.9 MED E' 9.4 (>= 7 cm/sec) E'/MED E' Ratio 7.16 (<= 14) LAT E' 9.5 (>= 10 cm/sec) E/LAT E' Ratio 7.08 (<= 14) Mitral Valve MV E Max Zeferino. 67.0 (40-130 cm/s) MV A Velocity 72.0 (40-130 cm/s) E/A Ratio 0.93 MV Decel. Time 175 (160-240 ms) Other Information Study Quality: Fair Conclusion This is a limited TTE to evaluate for LV systolic function. Limited images were obtained. The left ventricle is normal in size. There is increased LV wall thickness. There is moderate reduction global LV systolic function. There is moderate global hypokinesis present. The septum is asynchronous. LVEF is 35-40%. Compared to prior study from 10/01/2024, the LV systolic function is overall unchanged. Electronically signed by : Susan Daugherty MD 02/07/2025 13:21:05
== END 2025-02-07 23:59 | disposition home or self-care (01) ==
LOC: RT 08:38
PROVIDERS: PCP Family Medicine; Visit Provider Internal Medicine
DX: I50.20 Unspecified systolic (congestive) heart failure (principal); I25.10 Atherosclerotic heart disease of native coronary artery without angina pectoris; F17.200 Nicotine dependence, unspecified, uncomplicated; R93.1 Abnormal findings on diagnostic imaging of heart and coronary circulation
CPT/HCPCS: 93308

== ENCOUNTER 2025-04-15 11:51 | Emergency (ER) | payer OTHER, SELFPAY ==
[2025-04-15] VITALS (8 sets, daily range): BP systolic 111–137; BP diastolic 81–97; PULSE 74–87; RESP 13–17; TEMP 36.6–36.7; O2SAT 97–99; BMI 21.7
--- NOTE | 2025-04-15 11:49 | ECG_ITS ---
APPROVED REPORT Exam: Resting ECG HR:86 bpm ECG Measurements Heart Rate 86 AXES AK 169 P 82 QRSd 91 QRS 40 QT 365 T 50 QTc 408 Conclusion SINUS RHYTHM NORMAL ECG UNCONFIRMED REPORT Electronically signed by : Richard Woods, 04/15/2025 16:38:13
--- OUTSIDE RECORDS SUMMARY | 2025-04-15 12:05 | XMS_ITS | Patient Health Record ---
Author Organization [facility] Address [address] [place] [id number] Care Team Providers Care Marketing Consultant Name Role Phone Gabino Quesadaian Primary Care Provider [phone] Allergies Allergen (clinical drug ingredient) Drug/Non Drug Allergy documented on EMR Reaction Allergy Type Onset Date Status Penicillin Unknown Drug Allergy Active promethazine Promethazine Unknown Drug Allergy A ctive Reason For Referral No Information Medications Medication SIG (Take, Route, Frequency, Duration) Notes Start Date End Date Status Bisoprolol Fumarate 5 MG 1 tab(s) orally once a day Active Lipitor 20 MG 1 tab(s) orally once a day (at bedtime) Active SPIRIVA RESPAMAT 2 INHALATIONS DAILY *Please rev iew for potential replacement for e-prescription and drug interaction check* 02/14/2015 Active buPROPion HCl ER (XL) 150 MG 1 tab(s) orally every 24 hours; Duration: 30 day(s) 02/14/2015 Active Albuterol Sulfate HFA 108 (90 Base) MCG/ACT 2 puffs inhaled bid Active Dulera 100-5 MCG/ACT 2 puffs inhaled bid Active Isosorbide Mononitrate ER 30 MG 1 tab(s) orally once a day (in the morning) Active Nitrostat 0.4 MG 1 tab(s) sublingually every 5 minutes Active Problems Problem Type SNOMED Code ICD Code Onset Dates Problem Status W/U Status Risk Notes Problem Angina (078895711) Angina NOS (413.9) Active confirmed Plan Of Treatment No Information Medical (General) History Medical History History ICD Code hyperlipidemia COPD Coronary Artery Disease Histoplasmosis hypertension Drug overdose, Suicide attempt October Surgical History Surgery Date(Month/Year) Neck- Lymph Nodes Removed 2 stents placed January/2015 Hospitalization History Reason Date(Month/Year) [facility] ER-stomach pain, vomiting 11/09
--- NOTE | 2025-04-15 12:06 | XR_ITS ---
FINAL REPORT CLINICAL HISTORY: short of breath COMPARISON: 04/26/2022 FINDINGS: A single frontal view of the chest was obtained. No acute pulmonary opacity is present. There is no evidence of effusion or pneumothorax. Mediastinum is unremarkable. Heart size is normal. IMPRESSION: No acute abnormality. Reviewed, Interpreted and Dictated by Curt Gonzalez MD Transcribed by Rachna Pedraza Authenticated and [facility]
--- NOTE | 2025-04-15 12:07 | ED_ITS ---
Discharge Plan Disposition Patient Disposition: Home, Self-Care Prescriptions Prescriptions: No Action nitroglycerin 0.4 mg tablet, sublingual 0.4 mg sublingual Q5-15M PRN (Reason: chest pain) Qty: 30 1RF Rx Instructions: do not exceed 3 doses per episode clopidogrel [Plavix] 75 mg tablet 75 mg PO DAILY Qty: 34 2RF Rx Instructions: take loading dose the first day of 300 mg then (4 tabs) once a day after. ramipril [Altace] 5 mg capsule 5 mg PO DAILY 30 Days Qty: 30 3RF atorvastatin 20 mg tablet 20 mg PO DAILY Qty: 30 2RF aspirin [Adult Aspirin Regimen] 81 mg tablet,delayed release (DR/EC) 81 mg PO DAILY Qty: 30 2RF spironolactone [Aldactone] 25 mg tablet 25 mg PO DAILY Qty: 30 2RF dapagliflozin propanediol [Farxiga] 10 mg tablet 10 mg PO DAILY Referrals Follow up/Referrals: Elijah Laws MD [Primary Care Provider, Family Practice] - See instructions Damien Daugherty MD [Staff Physician, Cardiology] - See instructions Activity Restrictions/Add. 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 They may want to to do further testing. Clinical Impressions Clinical Impression: Chest pain Stand Alone Forms Stand Alone Forms: Work/School Release Instructions Patient Instructions: DI for Atypical Chest Pain Print Language Print Language: Guamanian Discharge ED Provider: Lito Woods General Chief Complaint: Chest Pain Stated Complaint: chest pain Time Seen by Provider: 04/15/25 11:58 Mode of Arrival: Ambulatory Source of Information: Patient Description of Symptoms (Recalled from ER Triage Doc. by RN): pt presents to the ED with chest pain. pt reports the chest pain started around 10:00. pt states that he took a nitro. pt had relief from the chest pain. pt states that he now has numbness all over his body and feels that his blood pressure is high. hx of congestive heart failure. pts last heart cath in October. Denies shortness of breath. History of Present Illness HPI narrative: 59-year-old male presents today for complaint of left-sided chest pain that started at 10 AM. He took a nitro and felt like his blood pressure increased and he had a headache. No shortness of breath. He did have some nausea but that is gone now. He says his chest pain did go away. He says he said twinges since then. He does feel better now. He says it felt like it was sharp pain. Patient does have history of CHF. He says he has a EF of 35%. He did have a heart cath in October and had stents replaced but he still has 4 or 5 stents he is not sure how many. He also has COPD, hyperlipidemia and stenosis. Related Data Home Medications ?Medication ?Instructions ?Recorded ?Confirmed dapagliflozin propanediol 10 mg 10 mg PO DAILY 5 04/15/25 tablet (Farxiga) Previous Rx's ?Medication ?Instructions ?Recorded nitroglycerin 0.4 mg sublingual 0.4 mg sublingual Q5-1 5M PRN chest 09/27/24 tablet pain #30 tabs clopidogrel 75 mg tablet (Plavix) 75 mg PO DAILY #34 t abs 02/15/25 aspirin 81 mg tablet,delayed 81 mg PO DAILY #30 tabs 0 02/16/25 release (Adult Aspirin Regimen) atorvastatin 20 mg tablet 20 mg PO DAILY #30 tabs 01/26 10/19 ramipril 5 mg capsule (Altace) 5 mg PO DAILY 30 days # 30 caps 02/16/25 spironolactone 25 mg tablet 25 mg PO DAILY #30 tabs (Aldactone) Allergies Allergy/AdvReac Type Severity Reaction Status Date / Time Penicillins Allergy Unknown Verified 02/15/25 15:50 [facility] Disclaimer: The information contained in this section may have been updated after the patient was seen, as this information can be updated by other users. Medical History HFrEF (heart failure with reduced ejection fraction) Occlusion and stenosis of unspecified carotid artery Coronary artery disease with stable angina pectoris Dyspnea Depression Hyperlipidemia Hypertension Chronic cough COPD (chronic obstructive pulmonary disease) Stenosis of carotid artery Encounter for pre-operative cardiovascular clearance Iron deficiency anemia Surgical History History of cardiac cath Presence of coronary angioplasty implant and graft Status post shoulder surgery Status post left shoulder arthroscopy with subacromial decompression and limited debridement anterior labrum rotator cuff S/P arthroscopy of shoulder left History of coronary artery stent placement Family History Other Family history of cancer Family history of diabetes mellitus type II Family history of hypertension Social History Smoking Status: Never smoker second hand exposure: No alcohol intake: never substance use type: denies use current occupational status: employed Travel in the last 8 weeks?: None household members: family housing: house current occupation: [employer] current occupational exposures/hazards: No caffeine: Yes special bairon needs: No agree to transfusion: No do you feel safe at home: Yes victim of physical abuse: No victim of emotional abuse: No victim of sexual abuse: No would you like helpful sources: No Have you lived/traveled outside [place] in past 30 days?: No Contact w/someone who lives/traveled outside [place] past 30 days?: No Exposure to someone with infectious disease in past 14 days?: No Do you have a fever (greater than 100.4 F or 38 C)?: No Have you tested positive for COVID-19?: No Exposed to someone with COVID-19 in past 14 days?: No Do you have a sore throat?: No Do you have a cough?: No Do you have any weakness?: No Do you have any diarrhea?: No Are you experiencing any unusual bleeding?: No Do you have any muscle aches/pain?: No Do you have any abdominal pain?: No Are you experiencing loss of taste or smell?: No Other Medical History Have you received the Flu Vaccine for this season: No Have you received the Pneumonia Vaccine: No ROS Obtained: Yes Systems reviewed as appropriate & no additional complaints except as documented Constitutional Constitutional: Reports as per HPI Physical Exam General General appearance: alert and in no apparent distress Head Head exam: normocephalic Eye Eye exam: Present PERRL ENT ENT exam: Present mucous membranes moist Neck Neck exam: Present trachea midline Chest Chest inspection: Present symmetric chest wall rise Respiratory Respiratory exam: Present normal lung sounds bilaterally Cardiovascular Cardiovascular exam: Present regular rate, normal rhythm, normal heart sounds, +S1 and +S2 Abdominal Exam Abdominal exam: Present soft and normal bowel sounds Extremities Exam Extremities exam: Present normal inspection, full ROM and normal capillary refill Back Exam Back exam: Present full ROM Neurological Exam Neurological exam: Present alert, oriented X3 and normal gait Psychiatric Psychiatric exam: Present normal mood Skin Skin exam: Present warm and dry HEART Score HEART Score HEART Score assessment performed?: Yes History (anamnesis): Slightly suspicious ECG: Normal Age: 45-65 years Risk factors: 3 or more risk factors Troponin: </= normal limit HEART Score: 3 Critical Care Critical Care Time Critical Care Time: No Medical Decision Making Maynor Inquiry Pt receiving controlled substance: No Maynor was queried for this patient: No Vital Signs Vital Signs: 04/15/25 11:54 04/15/25 11:54 04/15/25 12:00 Temperature 98.1 F 98.1 F Temperature Source Oral Oral Pulse Rate 87 84 Pulse Rate [Right] 87 Respiratory Rate 17 17 13 Blood Pressure 124/97 H 121/93 H Blood Pressure [Right Arm] 124/97 H Blood Pressure Mean [Right Arm] 106 Blood Pressure Source Automatic Cuff Blood Pressure Source [Right Arm] Automatic Cuff Blood Pressure Position Supine Blood Pressure Position [Right Arm] Supine 02 Sat by Pulse Oximetry 99 99 98 Oxygen Delivery Method Room Air Room Air 04/15/25 12:01 04/15/25 12:30 04/15/25 13:00 Temperature Temperature Source Pulse Rate 87 77 74 Pulse Rate [Right] Respiratory Rate 17 16 Blood Pressure 111/84 125/87 Blood Pressure [Right Arm] Blood Pressure Mean [Right Arm] Blood Pressure Source Blood Pressure Source [Right Arm] Blood Pressure Position Blood Pressure Position [Right Arm] 02 Sat by Pulse Oximetry 97 98 Oxygen Delivery Method 04/15/25 13:31 04/15/25 14:30 04/15/25 16:26 Temperature 98 F Temperature Source Oral Pulse Rate 78 76 78 Pulse Rate [Right] Respiratory Rate 17 15 16 Blood Pressure 137/85 123/81 127/85 Blood Pressure [Right Arm] Blood Pressure Mean [Right Arm] Blood Pressure Source Automatic Cuff Blood Pressure Source [Right Arm] Blood Pressure Position Supine Blood Pressure Position [Right Arm] 02 Sat by Pulse Oximetry 99 98 Oxygen Delivery Method Room Air Lab Data Labs: Lab Results 04/15/25 14:40: Troponin I < 0.01 04/15/25 : WBC 4.6 L, RBC 4.20 L, Hgb 13.1 L, Hct 37.5 L, MCV 89.3, MCH 31.2, MCHC 34.9, RDW 12.1, Plt Count 276, MPV 8.6, Neut % (Auto) 55.5, Lymph % (Auto) 28.2, [place] % (Auto) 11.6 H, Eos % (Auto) 3.9, Baso % (Auto) 0.6, Neut # (Auto) 2.6, Lymph # (Auto) 1.3, [place] # (Auto) 0.5, Eos # (Auto) 0.2, Baso # (Auto) 0.0, D-Dimer < 0.25, Sodium 137, Potassium 4.1, Chloride 103, Carbon Dioxide 25, Anion Gap 13.1, BUN 12, Creatinine 1.00, Estimated Creat Clear 75, Estimated GFR 77, Est GFR ( Amer) 93, Glucose 95, Calcium 9.4, Magnesium 1.9, Total Bilirubin 0.5, AST 29, ALT 19, Alkaline Phosphatase 69, Troponin I < 0.01, N T-Pro-B Natriuret Pep 132 H, Total Protein 7.8, Albumin 4.4, Globulin 3.4 H, Albumin/Globulin Ratio 1.3, Lipase 153, HCV Ab JULIET w/Rflx PCR Qn Negative, HIV Ag/Ab Combo Qual Negative 04/15/25 Unknown 04/15/25 Unknown Response Orders (Tests/Meds): ED MEDICATIONS Discontinued Medications Generic Name Dose Route Start Last Admin Trade Name Freq PRN Reason Stop Dose Admin Aspirin 325 mg 04/15/25 12:51 04/15/25 13:07 Aspirin 325mg Tablet PO 04/15/25 12:52 325 mg ONCE ONE Administration ORDERS Category Date Time Status Chest XR -- portable [XR chest portable] Stat Exams 04/15/25 12:06 Completed BNP [NT Pro Brain Natriuretic Pep.] Stat Lab 04/15/25 Completed CBC [Complete Blood Count Auto Diff] Stat Lab 04/15/25 Completed Comprehensive Metabolic Panel Stat Lab 04/15/25 Completed D-Dimer Stat Lab 04/15/25 Completed HIV Combo Stat Lab 04/15/25 Completed Hepatitis C Ab Qual. W/ RFX Stat Lab 04/15/25 Completed Lipase Stat Lab 04/15/25 Completed Magnesium Stat Lab 04/15/25 Completed Trop I [Troponin I] Stat Lab 04/15/25 Completed Troponin I Q3H Lab 04/15/25 14:40 Completed MDM Narrative Medical Decision Narrative: patient is a 59-year-old male presenting to the emergency department for evaluation of chest pain. Patient is hemodynamically stable and nontoxic- appearing upon arrival, afebrile. Differential diagnosis includes ACS, COPD, among others. Workup will be conducted with hematologic labs, specific imaging. Initial inventions include crystalloid bolus, analgesics. Initial workup reviewed by me hematologic labs are remarkable for normal troponin x 2. White count was 4.6. Other labs were nonactionable today. 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 Imaging today was negative for acute findings read by radiology. Discussion with Dr. Woods about plan was had. Patient is safe for discharge home.
[2025-04-15 12:13] LABS: Hematocrit 37.5 % (42.0-52.0); Hemoglobin 13.1 g/dL (14.1-18.0); Immature Granulocytes % 0.2 %; Mean Corpuscular HGB Conc 34.9 g/dL (31.8-35.4); Mean Corpuscular Hemoglobin 31.2 pg (27.0-31.2); Mean Corpuscular Volume 89.3 fl (80-94); Nucleated Red Blood Cells % 0 %; Platelet Count 276 K/mm3 (142-424); Red Blood Count 4.20 M/mm3 (4.60-6.20); Red Cell Distribution Width-SD 39.4 fL; White Blood Count 4.6 K/mm3 (4.8-10.8)
[2025-04-15 12:16] LABS: Albumin Level 4.4 g/dl (3.5-5.0); Chloride 103 mmol/L (98-107)
[2025-04-15 12:17] LABS: Potassium 4.1 mmoL/L (3.5-5.1); Sodium 137 mmol/L (136-145)
[2025-04-15 12:19] LABS: Alanine Aminotransferase 19 U/L (12-78); Aspartate Amino Transferase 29 U/L (17-59); Blood Urea Nitrogen 12 mg/dl (9-20); Creatinine Clearance Estimated 75 mL/min (50-200); Creatinine,Serum 1.00 mg/dl (0.66-1.25); Estimated Glomerular Filt Rate 77 ml/min (>60); GFR (African American) 93 ML/MIN (>60)
[2025-04-15 12:20] LABS: Albumin/Globulin Ratio 1.3 (1.1-1.8); Alkaline Phosphatase 69 U/L (38-126); Bilirubin,Total 0.5 mg/dl (0.2-1.3); Calcium 9.4 mg/dl (8.4-10.2); Globulin 3.4 g/dL (1.3-3.2); Glucose 95 mg/dl (74-100); Lipase 153 U/L (23-300); Magnesium 1.9 mg/dl (1.6-2.3); Total Protein,Serum 7.8 g/dl (6.3-8.2)
[2025-04-15 12:38] LABS: NT Pro Brain Natriuretic Pep. 132 pg/mL (0-125)
[2025-04-15 12:42] LABS: D-Dimer < 0.25 ug/mL (0.0-0.5)
[2025-04-15 12:51] LABS: Troponin I < 0.01 ng/ml (0.00-0.034)
[2025-04-15] MEDS: ASPIRIN 325MG TABLET 325 MG PO (13:07)
[2025-04-15 13:26] LABS: Hepatitis C Ab Qual. W/ RFX NEGATIVE (Negative)
[2025-04-15 13:44] LABS: Anion Gap 13.1 mEq/L (5-15); Carbon Dioxide 25 mmol/L (22.0-30.0)
[2025-04-15 15:17] LABS: Troponin I < 0.01 ng/ml (0.00-0.034)
== END 2025-04-15 16:41 | disposition home or self-care (01) ==
PROVIDERS: Nurse Practitioner; Emergency Provider Student in an Organized Health Care Education/Training Program; PCP Family Medicine
DX: R07.9 Chest pain, unspecified (principal); R51.9 Headache, unspecified; I11.0 Hypertensive heart disease with heart failure; I50.20 Unspecified systolic (congestive) heart failure; J44.9 Chronic obstructive pulmonary disease, unspecified; E78.5 Hyperlipidemia, unspecified; Z87.891 Personal history of nicotine dependence
CPT/HCPCS: 71045; 80053; 83690; 83735; 83880; 84484; 85025; 85378; 86803; 87389; 93005; 99285

== ENCOUNTER 2025-05-04 06:15 | Outpatient (CLI) | payer OTHER, SELFPAY ==
--- OUTSIDE RECORDS SUMMARY | 2025-03-07 13:37 | XMS_ITS | Continuity of Care Document ---
Author Organization [facility] Address [address] [place] [address] 10 [address] [place] [address] Phone Care Team Providers Care Black Powder Glazing Operator Name Role Phone Kasey NICHOLE FACP FCCPJuan Carlos Unavailable Unavail able Allergies, Adverse Reactions, Alerts Substance Reaction Status Criticality Penicillins Active No Information Medications Medication Instructions Dosage Effective Dates (start - stop) Status Comments ALBUTEROL HFA (PROAIR) INHALER INHALE 2 PUFFS BY MOUTH EVERY 4 TO 6 HOURS NEEDED - Active TRELEGY ELLIPTA 100-62.5-25 INHALE 1 PUFF BY INHALATION ROUTE EVERY DAY AT THE SAME TIME EACH DAY - Active MONTELUKAST SOD 10 MG TABLET TAKE 1 TABLET BY MOUTH EVERY DAY IN THE EVENING - Active LORATADINE 10 MG TABLET TAKE 1 TABLET BY MOUTH EVERY DAY - Active Flonase Allergy Relief 50 mcg/actuation nasal spray,suspension spray 1 - 2 spray by intranasal route every day in each nostril as needed 50-100 MCG - Active SYNTHROID (unknown strength) take 1 tablet by oral route every day Not Available - Active Trelegy Ellipta 100 mcg-62.5 mcg-25 mcg powder for inhalation inhale 1 puff by inhalation route every day at the same time each day 1.00 puff - No Longer Active albuterol sulfate HFA 90 mcg/actuation aerosol inhaler inhale 2 puff by inhalation route every 4 - 6 hours as needed 2 puff - No Longer Active Procedures Procedure Date Pain Severity Quantified No Pain Present Medication List Documented In MR 2024 Rev Of Meds By Prescribing Practitioner Or Pharmac Functional Status Assessed [facility] 25 Body Mass Index Documented Offic/outpt E&m Estab Mod-ma Pain Severity Quantified No Pain Present Medication List Documented In 2024 Rev Of Meds By Prescribing Practitioner Or Pharmac Functional Status Assessed [facility] 25 Body Mass Index Documented Offic/outpt E&m [...] E&m New Mod-hi Aerosol/vapor Inhala; 1st Demo Advance Directives Directive Yes / No Effective Date File Name No Information Encounters Encounter Description Practice Location Reason(s) For Visit Diagnoses Date Provider Providers Copied on Encounter [facility], [address], [place], [place], [id number], [place] tel:[phone] [facility] No Information 5 Kasey NICHOLE [facility] Juan Carlos. [address], [place], [place], [id number] , [place]. tel:[phone] Referring Provider: Juan Carlos Parks MD [facility], [address], [place], [address] . tel:[phone] Offic/outpt E&m [facility], [address], [place], [place], [id number], [place] tel:[phone] [facility] Pt states he is here for a f/u (chief complaint) Hypothyroidism, unspecified typeMild persistent asthma with acute exacerbationAllergi c rhinitis, unspecified seasonality, unspecified trigger 5 Kasey [facility] Juan Carlos. [address], [address], [place], [place], [address] , [place]. tel:[phone] Referring Provider: Juan Carlos [facility], [address], [place], [address] . tel:[phone] [facility], [address], [place], [place], [address], [place] tel:[phone] [facility] No Information 5 Ho Quiñones. [address], [address], [place], [address], [place]. tel:[phone] Offic/outpt E&m Estab Mod-hi [facility], [address], [place], [place], [address], [place] tel:[phone] [facility] Pt wants to discuss Biologics for Asthma (chief complaint) Mild persistent asthma with acute exacerbationAllergi c rhinitis, unspecified seasonality, unspecified triggerHypothyroidi sm, unspecified type Sep- 5 Kasey NICHOLE [facility]. [address], [address], [place], [place], [address] , [place]. tel: [phone] Referring Provider: Juan Carlos Parks MD, FACP [facility], [address], [place], [address] . tel:[phone] [facility], [address], [place], [place], [address], [place] tel:[phone] [facility] No Information 5 Kasey Rangel. [address], [address], [place], [place], [address] , [place]. tel:[phone] [facility], [address], [place], [place], [address], [place] tel:[phone] [facility] No Information 4 Kasey Rangel. [address], [address], [place], [place], [address] , [place]. tel:[phone] Offic/outpt E&m Estab Mod-hi [facility], [address], [place], [place], [address], [place] tel:[phone] [facility] Consult (chief complaint) Allergy, subsequent encounterMild persistent asthma with acute exacerbationAllergi c rhinitis, unspecified seasonality, unspecified trigger 3 Ho Quiñones. [address], [address], [place], [address], [place]. tel:[phone] Referring Provider: Ishmael Teague MD, FACP, [address], [place], [address]. tel:[phone] [facility], [address], [place], [place], [address], [place] tel:[phone] [facility] No Information 2 Kasey NICHOLE FACP [facility] Juan Carlos. [address], [address], [place], [place], [address] , [place]. tel:[phone] Referring Provider: Juan Carlos [facility], [address], [place], [address] . tel:[phone] Offic/outpt E&m Estab Mod-hi [facility], [address], [place], [place], [address], [place] tel:[phone] [facility] follow up (chief complaint) Allergic rhinitis, unspecified seasonality, unspecified triggerMild persistent asthma with acute exacerbationAllergy , subsequent encounter 2 Kasey NICHOLE FACP [facility] Juan Carlos. [address], [address], [place], [place], [address] , [place]. tel:[phone] Referring Provider: Juan Carlos Parks MD, FACP [facility], [address], [place], [address] . tel:[phone] [facility], [address], [place], [place], [address], [place] tel:[phone] [facility] No Information 1 Kasey Rangel. [address], [address], [place], [place], [address] , [place]. tel:[phone] Referring Provider: Juan Carlos VE[facility], [address], [place], [address] . tel:[phone] [facility], [address], [place], [place], [address], [place] tel:[phone] [facility] No Information 1 Kasey Rangel. [address], Suite [facility] [place], [place], [place], [address] , [place]. tel:[phone] Referring Provider: Juan Carlos [facility], [address], [place], [address] . tel:[phone] [facility], [address] [facility], [place], [place], [address], [place] tel:[phone] [facility] No Information 1 Kasey Rangel. [address], [address], [place], [place], [address] , [place]. tel:[phone] Referring Provider: Juan Carlos [facility], [address], [place], [address] . tel:[phone] [facility], [address], [place], [place], [address], [place] tel:[phone] [facility] No Information 0 Kasey Rangel. [address], [address], [place], [place], [address] , [place]. [phone] Referring Provider: Juan Carlos Parks MD, FACP [facility], [address], [place], [address] . tel:[phone] Offic/outpt E&m [facility], [address], [place], [place], [address], [place] tel:[phone] [facility] Allergy retest before getting antgens made (chief complaint) Allergic rhinitis, unspecified seasonality, unspecified triggerMild persistent asthma with acute exacerbation 0 Kasey Rangel. [address], [address], [place], [place], [address] , [place]. [phone] Referring Provider: Juan Carlos VEGA, [address] [facility], [place], [address] . tel:[phone] Offic/outpt E&m [facility], [address] [facility], [place], [place], [address], [place] tel:[phone] [facility] Allergy Test (chief complaint) Allergic rhinitis, unspecified seasonality, unspecified triggerMild persistent asthma with acute exacerbationAllergy , unspecified, initial encounter 9 Kasey Rangel. [address], [address], [place], [place], [address] , [place]. [phone] Referring Provider: Juan Carlos VEGA, [address] [facility], [place], [address] . tel:[phone] Offic/outpt E&m [facility], [address], [place], [place], [address], [place] tel:[phone] [facility] allergies x long time (chief complaint) Mild persistent asthma with acute exacerbationAllergi c rhinitis, unspecified seasonality, unspecified trigger 0201 9 Kasey NICHOLE [facility] Juan Carlos. [address], [address], [place], [place], [address] , [place]. tel: [phone] Referring Provider: Juan Carlos [facility], [address], [place], [address] . tel:[phone] Family History Family Member Type Diagnosis Age At Onset Father Problem (finding) Atherosclerosis Payers Payer name Insurance type Covered alliance party ID Authoriza tion(s) [employer] [place] PPO BL [id number] Social History Type Description Quantity Date Captured Comments Sex Male Smoking Status No Information Sexual Orientation Choose not to disclose Gender Identity Male Chief Complaint And Reason For Visit No Information Reason For Referral Reason For Referral No Information Plan Of Treatment Date Type Action Status Goal Td vaccine. Due on 24 due Goal Colonoscopy. Due on due Goal Zoster vaccine ( ). Due on due Goal Tdap. Due on due Goal H&P. Due on due Goal Influenza vaccin e. Due on due Goal Lipid Panel. Due on 024 due Goal FIT. Due on due Goal Depression scree renzo. Due on due Goal Unhealthy drug u se screening. Due on due Goal H&P. Due on due Goal Lipid Panel. Due on 023 due Goal Zoster vaccine ( ). Due on due Goal Colonoscopy. Due on 023 due Goal FIT. Due on due Goal Unhealthy drug u se screening. Due on due Goal Zoster vaccine ( ). Due on due Goal Unhealthy drug u [...] Order: Radiology Order XR Chest 2 Views ([id number]), Added on: New History Of Present Illness [...] 3 weeks ago when he was in [place] cleaning his garage he noticed that over the weekend he started getting stuffy nose. He took sudafed which he normally does when he get symptoms like this.He thought that it was going away last but it came back again over the weekend.Patient states that he got antibiotics from [facility]. He is taking doxycycline since Friday. He [...] asthma has been well cotrolled. When in [place] he uses the inhaler a lot more and when he comes back he feels that he gets back to normal after a couple weeks . When he is in [place] it is aggravated and he thinks that it is affiliated with [employer] that are in [place]. When he went last year these flies [...]
--- OUTSIDE RECORDS SUMMARY | 2025-05-04 06:17 | XMS_ITS | Patient Health Record ---
Author Organization [facility] Address [address] [place] [id number] Care Team Providers Care Vitreo Retinal Surgeon Name Role Phone Gabino Quesadaian Primary Care Provider [phone] Allergies Allergen (clinical drug ingredient) Drug/Non Drug [...] Status W/U Status Risk Notes Problem Angina ([id number]) Angina NOS (413.9) Active confirmed Plan Of Treatment No Information Medical (General) History Medical History History ICD Code hyperlipidemia COPD Coronary Artery Disease Histoplasmosis hypertension Drug overdose, Suicide attempt October Surgical History Surgery Date(Month/Year) Neck- Lymph Nodes Removed 2 stents placed January/2015 Hospitalization History Reason Date(Month/Year) [facility] ER-stomach pain, vomiting 11/09
--- NOTE | 2025-05-04 06:30 | NM_ITS ---
APPROVED REPORT Exam: Nuclear Stress Test Indication: soa..fatigue Patient Location: Outpatient Stress Tech: Pam Gonzalez [place] Tech:Asiya Urias SARA RT(R)(N) Ht: 5 ft 8 in Wt: 142 lbs HR: 80 bpm BP: 132/95 mmHg BSA: 1.77 m2 TID: 1.07 BMI: 21.5 History: soa..fatigue Procedure: Patient received 0.4 mg of intravenous Lexiscan, resting heart rate 80 bpm, resting blood pressure 132/95 mmHg, with Lexiscan maximum heart rate achieved was 114 bpm which is 85 % of the maximum predicted heart rate and blood pressure was 133/96 mmHg. With Lexiscan, patient denied any complaint of chest pain. Cardiac Stress and Resting SPECT Images: Cardiac Stress and Resting SPECT images were obtained using technetium 99m Myoview 30.6 mCi stress and 10.79 mCi at rest. Resting and stress imaging in supine and prone positions demonstrate medium sized, mild, partially reversible perfusion defect in the basal to mid inferior and inferoseptal LV [place]. Gated imaging demonstrates moderate reduction in global LV systolic function. LVEF is calculated at 39%. Conclusion: Medium sized, mild, partially reversible perfusion defect in the basal to mid inferior and inferoseptal LV [place]. Findings are suggestive of partial reversible ischemia. Gated imaging demonstrates moderate reduction in global LV systolic function. LVEF is calculated at 39%. Correlation with new or recent TTE is suggested. Electronically signed by : Susan Daugherty MD 05/17/2025 13:16:48
[2025-05-04 08:05] VITALS: BP 138/92; BP 150/84; PULSE 76; RESP 14
[2025-05-04] MEDS: ISOTOPE MYOVIEW (PER STUDY) 1 DOSE IV (10:36)
[2025-05-04] MEDS: SODIUM CHLORIDE 0.9% 10ML SYR (RAD ONLY) 10 ML IV ×2 (10:36)
== END 2025-05-04 23:59 | disposition home or self-care (01) ==
LOC: RAD 06:16
PROVIDERS: PCP Family Medicine; Visit Provider Physician Assistant
DX: I51.89 Other ill-defined heart diseases (principal); R94.39 Abnormal result of other cardiovascular function study; R07.9 Chest pain, unspecified; R06.02 Shortness of breath; R53.83 Other fatigue
CPT/HCPCS: 78452; A9502

== ENCOUNTER 2025-05-12 07:12 | Outpatient (CLI) | payer OTHER, SELFPAY ==
--- OUTSIDE RECORDS SUMMARY | 2025-05-05 05:47 | XMS_ITS | Continuity of Care Document ---
Author Organization [facility] Address [address] [place] [address] 10 [address] [place] [address] Phone Care Team Providers Care Assistant Counsel Name Role Phone Kasey NICHOLE FACP FCCPJuan Carlos Unavailable Unavail able Allergies, Adverse Reactions, Alerts Substance Reaction Status Criticality Penicillins Active No Information Medications Medication Instructions Dosage Effective Dates (start - stop) Status Comments TRELEGY ELLIPTA 100-62.5-25 INHALE 1 PUFF BY INHALATION ROUTE EVERY DAY AT THE SAME TIME EACH DAY - Active ALBUTEROL HFA (PROAIR) INHALER INHALE 2 PUFFS BY MOUTH EVERY 4 TO 6 HOURS NEEDED - Active MONTELUKAST SOD 10 MG TABLET [...] route every day Not Available - Active TRELEGY ELLIPTA 100-62.5-25 INHALE 1 PUFF BY INHALATION ROUTE EVERY DAY AT THE SAME TIME EACH DAY - No Longer Active Procedures Procedure Date [...] Oximetry-o2 Sat; 1 De 19 Bronchospsm Eval: Mcrae Helena-bronch 19 Respiratory Flow Volum Loop Offic/outpt E&m New Mod-va Aerosol/vapor Inhala; 1st Demo Advance Directives Directive Yes / No Effective Date File Name No Information Encounters Encounter Description Practice Location Reason(s) For Visit Diagnoses Date Provider Providers Copied on Encounter [facility], [address], [place], [place], [id number], tel:[phone] [facility] No Information 5 Kasey NICHOLE FACP [facility] Juan Carlos. [address], [place], [place], [address] , [place]. [phone] Referring Provider: Juan Carlos Parks MD, FACP [facility], [address] [facility], [place], [address] . tel:[phone] [facility], [address], [place], [place], [id number], tel:[phone] [facility] No Information 5 Kasey NICHOLE FACP [facility] Juan Carlos. [address], [address], [place], [place], [address] , [place]. [phone] Referring Provider: Juan Carlos Parks MD, FACP [facility], [address], [place], [address] . tel:[phone] Offic/outpt E&m [facility], [address], [place], [place], [id number], tel:[phone] [facility] Pt states he is here for a f/u (chief complaint) Hypothyroidism, unspecified typeMild persistent asthma with acute exacerbationAllergi c rhinitis, unspecified seasonality, unspecified trigger Oct- 5 Kasey NICHOLE FACP [facility] Juan Carlos. [address], [address], [place], [place], [address] , [place]. tel:[phone] Referring Provider: Juan Carlos [facility], [address], [place], [address] . tel:[phone] Offic/outpt E&m [facility], [address], [place], [place], [address], [place] tel:[phone] [facility] Pt wants to discuss Biologics for Asthma (chief complaint) Mild persistent asthma with acute exacerbationAllergi c rhinitis, unspecified seasonality, unspecified triggerHypothyroidi sm, unspecified type Sep- 5 K[facility] Juan Carlos. [address], [address], [place], [place], [address] , [place]. [phone] Referring Provider: Juan Carlos [facility], [address], [place], [address] . tel:[phone] [facility], [address], [place], [place], [id number], [place] tel:[phone] [facility] No Information 5 Kasey [facility] Juan Carlos. [address], [address], [place], [place], [address] , [place]. tel:[phone] Offic/outpt E&m [facility], [address], [place], [place], [address], [place] tel:[phone] [facility] Consult (chief complaint) Allergy, subsequent encounterMild persistent asthma with acute exacerbationAllergi c rhinitis, unspecified seasonality, unspecified trigger Mar- 3 Ho Quiñones. [address], [address], [place], [address], [place]. tel:[phone] Referring Provider: Ishmael Teague MD, FACP, [address], [place], [address]. tel:[phone] [facility], [address], [place], [place], [address], [place] tel:[phone] [facility] No Information 2 Kasey Rangel. [address], [address], [place], [place], [address] , [place]. [phone] Referring Provider: Juan Carlos [facility]GA, [address], [place], [address] . tel:[phone] Offic/outpt E&m Estab Mod-hi [facility], [address], [place], [place], [address], [place] tel:[phone] [facility] follow up (chief complaint) Allergic rhinitis, unspecified seasonality, unspecified triggerMild persistent asthma with acute exacerbationAllergy , subsequent encounter 2 Kasey Rangel. [address], [address], [place], [place], [address] , [place]. [phone] Referring Provider: Juan Carlos VEGA, [address], [place], [address] . tel:[phone] [facility], [address], [place], [place], [id number], [place] tel:[phone] [facility] No Information 1 Kasey Rangel. [address], [address], [place], [place], [address] , [place]. [phone] Referring Provider: Juan Carlos VEGA, [address], [place], [address] . tel:[phone] [facility], [address], [place], [place], [address], [place] tel:[phone] [facility] No Information 1 Kasey Rangel. [address], [address], [place], [place], [address] , [place]. tel:[phone] Referring Provider: Juan Carlos VEGA, [address], [place], [address] . tel:[phone] [facility], [address], [place], [place], [address], [place] tel:[phone] [facility] No Information 1 Kasey Rangel. [address], [place], [place], [address] , [place]. tel:[phone] Referring Provider: Juan Carlos VEGA, [address], [place], [address] . tel:[phone] [facility], [address], [place], [place], [address], [place] tel:[phone] [facility] No Information 0 Kasey Rangel. [address], [address], [place], [place], [address] , [place]. tel:[phone] Referring Provider: Juan Carlos VEGA, [address], [place], [address] . tel:[phone] Offic/outpt E&m Estab Mod-hi [facility], [address], [place], [place], [address], [place] tel:[phone] [facility] Allergy retest before getting antgens made (chief complaint) Allergic rhinitis, unspecified seasonality, unspecified triggerMild persistent asthma with acute exacerbation 0 Kasey Rangel. [address], [place], [place], [address] , [place]. [phone] Referring Provider: Juan Carlos VEGA, [address], [place], [address] . tel:[phone] Offic/outpt E&m [facility], [address], [place], [place], [address], [place] tel:[phone] [facility] Allergy Test (chief complaint) Allergic rhinitis, unspecified seasonality, unspecified triggerMild persistent asthma with acute exacerbationAllergy , unspecified, initial encounter 9 Kasey Rangel. [address], [address], [place], [place], [address] , [place]. tel:[phone] Referring Provider: Juan Carlos VEGA, [address], [place], [address] . tel:[phone] Offic/outpt E&m [facility], [address], [place], [place], [address], [place] tel:[phone] [facility] allergies x long time (chief complaint) Mild persistent asthma with acute exacerbationAllergi c rhinitis, unspecified seasonality, unspecified trigger 9 Kasey Rangel. [address], [place], [place], [address] , [place]. [phone] Referring Provider: Juan Carlos VEGA, [address], [place], [address] . tel:[phone] Family History Family Member Type Diagnosis Age At Onset Father Problem (finding) Atherosclerosis Payers Payer name Insurance type Covered green party ID Esteban hurtado(s) [employer] [place] PPO BL [id number] Social History Type Description Quantity Date Captured Comments Sex Male Smoking Status No Information Sexual Orientation Choose not to disclose Gender Identity Male Chief Complaint And Reason For Visit No Information Reason For Referral Reason For Referral No Information Plan Of Treatment Date Type Action Status Goal FIT. Due on due Goal H&P. Due on due Goal Lipid Panel. Due on due Goal Colonoscopy. Due on due Goal Unhealthy drug u se screening. Due on due Goal Zoster vaccine ( ). Due on due Goal FIT-DNA. Due on due Goal Unhealthy drug u se screening. Due on due Goal Hepatitis C scre ening. Due on due Goal CT-Colonography. Due on due Goal Lipid Panel. Due on due Goal FIT. Due on due Goal H&P. Due on due Goal FOBT. Due on due Goal Colonoscopy. Due on due Goal Zoster vaccine ( ). Due on due Goal FOBT. Due on [...] Order: Radiology Order XR Chest 2 Views ([id number]), Added on: New History Of Present Illness [...] 3 weeks ago when he was in [place] cleaning his garage he noticed that over the weekend he started getting stuffy nose. He took sudafed which he normally does when he get symptoms like this.He thought that it was going away last but it came back again over the weekend.Patient states that he got antibiotics from [facility] clinic. He is taking doxycycline since [...] asthma has been well cotrolled. When in [place] he uses the inhaler a lot more and when he comes back he feels that he gets back to normal after a couple weeks . When he is in [place] it is aggravated and he thinks that it is affiliated with [employer] that are in [place]. When he went last year these flies [...]
--- NOTE | 2025-05-12 | CA_ITS ---
APPROVED REPORT Exam: Pharmacologic Technologist: Pam Humphreys Ht: 5 ft 8 in Wt: 143 lbs BSA: 1.77 m2 Indications: R07.9,, R06.00, I25.10 Medical History Medications: Aspirin, Atorvastatin, Plavix, Farxiga, Nitroglycerin, Ramipril, Aldactone. Stress Test Details Test: Exercise stress converted to pharmacologic stress due to failure to obtain a diagnostic stress test. Reason for pharmacologic stress test: changed from exercise stress test due to inability to reach target heart rate. HR Resting HR: 81 bpm Max Heart Rate (APMHR): 163.773474 bpm Max HR Achieved: 120 bpm Target HR (85% APMHR): 138.998475 bpm % of APMHR: 73.62 Recovery HR: 99 bpm BP Resting BP: 132.0/95.0 mmHg Max BP: 133.0/96.0 mmHg Recovery BP: 113.0/78.0 mmHg ECG Stress ECG Conclusion Symptoms: SOB with Lexiscan. BERRY noted. Arrhythmias/Ectopy: PVC noted in recovery. ST-T Changes: Unremarkable with Lexiscan. Electronically signed by : Susan Daugherty MD 05/18/2025 12:22:35
--- OUTSIDE RECORDS SUMMARY | 2025-05-12 07:15 | XMS_ITS | Patient Health Record ---
Author Organization [facility] Address [address] [place] [id number] Care Team Providers Care Medical Billing Coordinator Name Role Phone Gabino Quesadaian Primary Care Provider Allergies Allergen (clinical drug ingredient) Drug/Non Drug [...] Status W/U Status Risk Notes Problem Angina ([id number]) Angina NOS (413.9) Active confirmed Plan Of Treatment No Information Medical (General) History Medical History History ICD Code hyperlipidemia COPD Coronary Artery Disease Histoplasmosis hypertension Drug overdose, Suicide attempt October Surgical History Surgery Date(Month/Year) Neck- Lymph Nodes Removed 2 stents placed January/2015 Hospitalization History Reason Date(Month/Year) [facility] ER-stomach pain, vomiting 11/09
== END 2025-05-12 23:59 | disposition home or self-care (01) ==
LOC: RAD 07:12
PROVIDERS: PCP Family Medicine; Visit Provider Physician Assistant
DX: I49.3 Ventricular premature depolarization (principal); I25.10 Atherosclerotic heart disease of native coronary artery without angina pectoris
CPT/HCPCS: 93017; 93018; J2785

== ENCOUNTER 2025-06-02 08:09 | Day surgery (SDC) | payer OTHER, SELFPAY ==
[2025-06-02] VITALS (12 sets, daily range): BP systolic 102–153; BP diastolic 67–91; PULSE 60–80; RESP 20; O2SAT 93–97; BMI 21.7
--- NOTE | 2025-06-02 07:09 | IR_ITS ---
APPROVED REPORT Patient Location: Outpatient PROCEDURES Left heart catheterization Left ventriculogram Selective coronary angiogram INDICATION Angina pectoris, Known coronary artery disease, Abnormal Myoview Informed consent was obtained prior to the procedure. COMPLICATIONS NONE Estimated Blood Loss: LESS THAN 10 ML TECHNIQUE One percent lidocaine used to anesthetize the right anterior aspect of the wrist. The right radial artery was accessed via the Seldinger technique. A 6 Palau[place] sheath was placed in the right radial artery. 2.5 mg of Verapamil, 800 mcg of nitroglycerin, 1mg Lidocaine and 5000 U Heparin were given through the arterial sheath. The JL3 catheter was also used to perform left heart catheterization, left ventriculogram and selective coronary angiogram. At the end of the procedure the sheath was removed good hemostasis was achieved using Traclet band, patient was transferred to the postop holding area in stable condition. ANGIOGRAPHIC RESULTS The left main artery Small caliber but without focal stenosis The left anterior descending artery Is small caliber and proximally patent followed by mid vessel 10 to 20% stenosis The circumflex artery Nondominant small caliber and patent The right coronary artery Dominant small caliber with a stent in the proximal segment is widely patent and free of in-stent restenosis with excellent proximal distal transitioning The GUNN ventriculogram reveals Normal 60% The left ventricular end-diastolic pressure 10 mmHg IMPRESSION Patent coronary arteries as described above Normal ejection fraction Normal LVEDP PLAN 1. Medical management for coronary artery disease 2. Evaluation of noncardiac symptoms Electronically signed by : Jona Reddy MD 06/02/2025 12:50:43
[2025-06-02 08:45] LABS: Hematocrit 40.3 % (42.0-52.0); Hemoglobin 13.5 g/dL (14.1-18.0); Immature Granulocytes % 0.2 %; Mean Corpuscular HGB Conc 33.5 g/dL (31.8-35.4); Mean Corpuscular Hemoglobin 31.0 pg (27.0-31.2); Mean Corpuscular Volume 92.4 fl (80-94); Nucleated Red Blood Cells % 0 %; Platelet Count 256 K/mm3 (142-424); Red Blood Count 4.36 M/mm3 (4.60-6.20); Red Cell Distribution Width-SD 40.3 fL; White Blood Count 5.7 K/mm3 (4.8-10.8)
[2025-06-02 08:52] LABS: Anion Gap 11.1 mEq/L (5-15); Blood Urea Nitrogen 15 mg/dl (9-20); Calcium 9.2 mg/dl (8.4-10.2); Carbon Dioxide 28 mmol/L (22.0-30.0); Chloride 101 mmol/L (98-107); Creatinine Clearance Estimated 83 mL/min (50-200); Creatinine,Serum 0.90 mg/dl (0.66-1.25); Estimated Glomerular Filt Rate 87 ml/min (>60); GFR (African American) 105 ML/MIN (>60); Glucose 101 mg/dl (74-100); Potassium 4.1 mmoL/L (3.5-5.1); Sodium 136 mmol/L (136-145)
[2025-06-02] MEDS: VERAPAMIL 2.5MG/ML 2ML VIAL 2.5 MG IV (10:48)
[2025-06-02] MEDS: HEPARIN 1,000 UNITS/500ML NS (CATH LAB) 3000 UNIT IV (10:48)
[2025-06-02] MEDS: HEPARIN 1,000 UNITS/ML 10ML VIAL (CATH LAB) 5000 UNIT IV (10:48)
[2025-06-02] MEDS: LIDOCAINE 1% 10ML MDV 10 ML IJ (10:48)
[2025-06-02] MEDS: 0.9 % SODIUM CHLORIDE 500 ML 25 ML IV (10:49)
[2025-06-02] MEDS: NITROGLYCERIN 800MCG/8ML SYR (CATH LAB) 800 MCG IA (10:49)
[2025-06-02] MEDS: FENTANYL 100MCG/2ML VIAL 50 MCG IV (11:04)
[2025-06-02] MEDS: MIDAZOLAM HCL 1MG/ML 5ML VIAL 1 MG IV (11:04)
[2025-06-02] MEDS: IOPAMIDOL-370 (76%);100ML BOTTLE 50 ML IV (11:32)
== END 2025-06-02 14:03 | disposition home or self-care (01) ==
LOC: CATHLAB 08:10
PROVIDERS: PCP Family Medicine; Visit Provider Internal Medicine
PROC: 4A023N7 Measurement of Cardiac Sampling and Pressure, Left Heart, Percutaneous Approach (ICD-10-PCS; CPT 93452; principal; 2025-06-02 08:00)
DX: I25.119 Atherosclerotic heart disease of native coronary artery with unspecified angina pectoris (principal); R93.1 Abnormal findings on diagnostic imaging of heart and coronary circulation; R07.89 Other chest pain; R06.09 Other forms of dyspnea; E78.49 Other hyperlipidemia; J44.9 Chronic obstructive pulmonary disease, unspecified; I11.0 Hypertensive heart disease with heart failure; I50.20 Unspecified systolic (congestive) heart failure; I65.29 Occlusion and stenosis of unspecified carotid artery; F17.210 Nicotine dependence, cigarettes, uncomplicated; Z95.5 Presence of coronary angioplasty implant and graft; Z79.82 Long term (current) use of aspirin; Z79.02 Long term (current) use of antithrombotics/antiplatelets; Z79.84 Long term (current) use of oral hypoglycemic drugs; Z79.899 Other long term (current) drug therapy; Z88.0 Allergy status to penicillin; Z82.49 Family history of ischemic heart disease and other diseases of the circulatory system
CPT/HCPCS: 80048; 85025; 93458; 99152; C1725; C1769; J1200; J1644; J3010; J7040; Q9967